=== PATIENT | female | born 1975 | race Caucasian/White ===

== ENCOUNTER 2021-02-16 16:28 | Inpatient (IN) | payer MEDICAID, SELFPAY ==
[2021-02-16] VITALS (58 sets, daily range): BP systolic 90–165; BP diastolic 54–102; PULSE 34–94; RESP 10–20; TEMP 35.6–37.1; O2SAT 73–100
--- NOTE | 2021-02-16 16:34 | W.ED.GENAD ---
Discharge Plan Disposition Patient Disposition: [facility] INPATIENT Condition: Fair Discharge Details Chief Complaint: GenMedical Clinical Impression: Weakness, Light-headed, Anemia, Orthostatic hypotension, YOGESH (acute kidney injury) Admit Date/Time: 02/16/21 20:45 Admit Provider: Danilo Sood Attending Provider: Danilo Sood Primary Care Provider: Unknown,Unknown ED Provider: Lexi Otto Discharge Data Discharge Date/Time-TO BE ENTERED AT DEPARTURE: 02/16/21 20:48 Medical Decision Making Patient is a pleasant 45-year-old female presenting today with chief complaint of feeling generally unwell. Past medical history pertinent for cerebral palsy. Patient reports she just moved to the area, typically receives her care at [facility]. Reports that beginning yesterday she was having some lightheadedness. States that this is improved with lying flat. She denies any chest pain or shortness of breath. States that yesterday she did have some nausea but this is relieved with Zofran. Is denying nausea currently. Denies any abdominal pain. States that she did also have several loose stools but that these of been resolved for the past several hours. Denies any black or bloody stools. She is concerned she has dehydration. She reports her frame table operator helper at [facility] is following this for her. States that she has been symptom every month few days prior to her menses. She reports approximately 3 days. On exam, patient is a chronic appearing female. VS stable. She appears generally weak. No new focal deficit. Cardiac exam is normal on auscultation. Lungs clear. No lower extremity edema. No calf pain. EKG was reviewed by Dr. Garcia. Patient does have ST elevation in leads I and aVL. Otherwise no significant abnormalities. Patient's history is lacking any chest pain or shortness of breath. Hold off on aggressive treatment for STEMI until further work-up has been completed. Is not had any previous ECGs for comparison. I have tried to find the patient in the [facility] systemic but have been unsuccessful. Labs reviewed. Patient is anemic with Hgb of 8.2. Creatinine elevated at 1.6. Troponin WNL. TSH WNL. Urine contaminated, will repeat. Name spelled wrong, FlockS. With this, was able to obtain notes from [facility]. She has had similar presentation to their ED historically. Her previous Hgb has been in the 8-9 range since 2018. Creatinine typically around 1. Reevaluated the patient to discuss her anemia. Patient was difficult to arouse. More so than what I would consider normal. She reports she has been having difficulty sleeping. She denies any EtOH or illicit drug use. States she has been taking her baclofen but states that she has been using this as prescribed. Pupils dilated. Past medical history significant per their records, for cerebral palsy with spasticity, obesity, diastolic congestive heart failure, hypertension, multiple spinal fusions, anxiety, YOGESH. On note dated 12/30/2020 from the [facility] emergency department, they did note the patient was nodding off to sleep in triage with dilated pupils. Called into room by nursing staff. Again, the patient was hard to arouse. At this time, the patient did bradycardia into the 40s. She did not drop her oxygenation level. No painful stimuli, the patient did arise and was verbal at her baseline. Patient was repositioned. She is now reporting that she did take not only her baclofen but also her tizanidine. Her exam is most concerning for overmedication. Patient is prescribed baclofen, Flexeril, Ativan and methocarbamol. Concerned that patient is from her , lives alone.b She is unable to ambulate without sigfnicant assistance. She reports that she typically has difficulty and often uses a wheelchair. Consulted with Dr. Sood who agrees to admission for weakness, YOGESH, anemia. He asked that I place delacruz orders. HPI General Mode of arrival: EMS. Date/Time Provider Initiated Documentation: 02/16/21 16:29. Limitations to Documentation: no limitations. Information obtained by: patient, EMS and RN notes reviewed. History of Present Illness 45 year old F presents to the emergency department with the chief complaint of lightheadedness, described as moderate and similar to prior episodes (reports she has similar episodes prior to each menses), Quality is described as constant, and is localized to the head. Patient reports no radiation. Patient started experiencing this day(s) (1) and it has been constant. Immobilization improves symptom(s), Movement worsens symptoms . Patient notes no other symptoms., loss of appetite, nausea/vomiting (nausea, no vomiting) and weakness (generalized. Chronic left sided weakness); denies chest pain, cough, fever/chills, headaches, rash, shortness of breath and syncope. Patient did receive the following treatments prior to arrival, none Related Data Home Medications Medication Instructions Recorded Confirmed baclofen 40 mg PO TID 02/16/21 02/16/21 citalopram 20 mg PO DAILY 02/16/21 02/16/21 cyclobenzaprine [Flexeril] 5 mg PO QID PRN 02/16/21 02/16/21 lisinopril 10 mg PO DAILY 02/16/21 02/16/21 lorazepam [Ativan] 1 mg PO PRN 02/16/21 methocarbamol [Robaxin] 750 mg PO QID PRN 02/16/21 02/16/21 ondansetron HCl [Zofran] 4 mg PO PRN 02/16/21 Allergies Allergy/AdvReac Type Severity Reaction Status Date / Time amoxicillin Allergy Unverified 02/16/21 16:38 morphine Allergy Unverified 02/16/21 16:39 bees Allergy Uncoded 02/16/21 16:39 pine nuts Allergy Uncoded 02/16/21 16:40 Review of Systems Constitutional Constitutional: Reports as per HPI, Denies chills, Reports fatigue, Denies fever(s), Denies frequent falls, Denies headache(s), Reports lethargy, Reports malaise, Reports poor appetite and Reports weakness (generalized) Eyes Eyes: Denies change in vision ENT Ears, Nose, Mouth, and Throat: Denies vertigo, Reports dizziness (lightheadedness) and Denies headache(s) Cardiovascular Cardiovascular: Reports as per HPI, Denies chest pain, Denies chest pain at rest, Denies chest pain with activity, Denies syncope, Denies edema, Reports lightheadedness, Denies radiating jaw, neck or arm pain, Denies dyspnea and Denies dyspnea on exertion Respiratory Respiratory: Reports as per HPI, Denies chest congestion, Denies cough, Denies pain on inspiration, Denies pain with cough, Denies dyspnea, Denies dyspnea on exertion and Denies wheezing Gastrointestinal Gastrointestinal: Reports as per HPI, Denies abdominal pain, Denies diarrhea, Reports nausea and Denies vomiting Genitourinary Genitourinary: Reports system reviewed and no additional complaints, except as documented (denies increased frequency, urgency, dysurea) Musculoskeletal Musculoskeletal: Reports as per HPI, Reports abnormal gait (difficulty with ambulation at baseline) and Denies back pain Integumentary/Breasts Skin/Breast: Reports as per HPI and Denies rash Neurologic Neurologic: Reports as per HPI, Reports abnormal gait (difficulty with ambulation at baseline), Denies vertigo, Reports dizziness (lightheadedness), Denies syncope, Denies frequent falls, Denies headache(s), Denies localized weakness and Reports weakness (generalized) Endocrine Endocrine: Reports fatigue Allergic/Immunologic Allergic/Immunologic: Denies wheezing [facility] Social History Smoking/Tobacco Use Status: Never Smoking risk assessment performed?: Yes Alcohol Intake: never Substance use type: does not use Exam Const General: cooperative, not healthy appearing, comfortable, no acute distress, well developed and ill appearing chronically Nutritional Appearance: well nourished and overweight Orientation: alert, awake and oriented x3 HENMT Head: normal to inspection Ears: hearing grossly normal bilaterally Mouth: mucous membranes dry (appears dry) Chest Chest: normal inspection of the chest, normal palpation of entire chest wall and no crepitus Resp Effort & Inspection: normal respiratory effort, able to speak in complete sentences and no respiratory distress Auscultation: clear to auscultation bilaterally, no rales, no rhonchi and no wheezes Cardio Rate: regular rate Rhythm: regular rhythm Heart Sounds: S1 normal and S2 normal GI Inspection: normal to inspection, no edema and non-distended Palpation: soft, no hepatosplenomegaly, not firm, no guarding, not rigid and nontender Auscultation: normal bowel sounds Back/Spine/Pelvis Back: no CVA tenderness Thoracic/Lumbar Spine: thoracic and lumbar spine normal to inspection Skin General skin exam: no rashes or lesions noted Trauma: no lacerations or abrasions Neuro General: patient alert, patient awake and patient oriented x3 Cognition: normal cognition Speech: speech normal Gait: gait abnormal (needs assistance at baseline) Extrem General: normal to inspection, capillary refill normal, no pedal edema and no calf tenderness Psych Appearance: grossly normal and well kempt Mental Status: mental status grossly normal Speech and Movement: speech and movement normal
--- NOTE | 2021-02-16 16:45 | RT.EKG_ITS ---
APPROVED REPORT Exam: Resting ECG Reason for Exam: weakness, dizzy Patient Location: E HR:76 bpm ECG Measurements Heart Rate 76 AXIS TX 187 P 30 QRSd 86 QRS -32 QT 391 T -1 QTc 439 Conclusion Sinus rhythm...normal P axis, V-rate 60- 99 Left axis deviation...QRS axis (-30,-90) Probable anterolateral infarct, old...Q>35mS, abnrm ST-T, V2-V6,I,aVL
[2021-02-16 17:18] LABS: Abs Immature Grans 0.03 10^3/uL (0.0-0.06); Absolute Basophil Count 0.03 10^3/uL (0.0-0.2); Absolute Eosinophil Count 0.06 10^3/uL (0.0-0.7); Absolute Lymphocyte Count 1.48 10^3/uL (1.2-3.4); Absolute Monocyte Count 0.63 10^3/uL (0.1-0.8); Absolute Neutrophil Count 4.97 10^3/uL (1.2-6.7); Basophils % 0.4; Eosinophils % 0.8; HCT 28.5 % (36.0-46.0); HGB 8.2 g/dL (11.2-15.7); Immature Grans % 0.4; Lymphocytes % 20.6; MCHC 28.8 % (32.0-36.0); MCV 79.8 fL (80-95); MPV 11.8 fL (8.0-11.0); Monocytes % 8.8; Nucleated RBC 0 %; Platelet Count 285 10^3/uL (130-400); RBC 3.57 10^6/uL (3.93-5.22); RDW 16.8 % (11.7-14.6); RDW-SD 47.9 fL
[2021-02-16] MEDS: Normal Saline 1,000 ML 1000 ML IV (17:25)
[2021-02-16 17:33] LABS: ALT 17 U/L (14-59); AST 13 U/L (15-37); Albumin 3.6 g/dL (3.4-5.0); Alkaline Phosphatase 76 U/L (46-116); Anion Gap 9.6 mmol/L (3-11); BUN 20 mg/dL (7-18); Bilirubin, Total 0.2 mg/dL (0.2-1.0); CO2 24.4 mmol/L (21.0-32.0); CREATININE 1.6 mg/dL (0.55-1.02); Calcium 8.8 mg/dL (8.5-10.1); Chloride 107 mmol/L (98-107); Estimated GFR 34.86 (mL/min/1.73m2); Glucose 150 mg/dL (74-106); Potassium 4.6 mmol/L (3.5-5.1); Sodium 141 mmol/L (136-145); Total Protein 7.8 g/dL (6.4-8.2)
[2021-02-16] MEDS: Normal Saline Flush 10 ML SYR IVP (17:33)
[2021-02-16 17:44] LABS: Magnesium 1.9 mg/dL (1.8-2.4); TSH (W/Ref FT4) 1.43 uIU/mL (0.36-3.74); Troponin I < 0.05 ng/mL (<0.06)
[2021-02-16 18:04] LABS: Bilirubin Negative (Negative); Blood Negative (Negative); Clarity Sl Cloudy (Clear); Glucose Negative (Negative); Ketones Negative (Negative); Leukocyte Esterase Negative (Negative); Nitrite Negative (Negative); Specific Gravity 1.025 (1.005-1.025); Urobilinogen 0.2 EU/dL (Up TO 0.2)
[2021-02-16 18:14] LABS: Epithelial Cells Many HPF (Negative)
[2021-02-16 18:15] LABS: Bacteria Many HPF (Negative); C & S Indicated? No/Sq. Contamination
[2021-02-16 18:29] LABS: *AMPHETAMINES SCREEN URINE Negative (Negative); *BARBITURATES SCREEN URINE Negative (Negative); *BENZODIAZEPINES SCREEN URINE Negative (Negative); Cannabinoids THC Negative (Negative); Cocaine Screen,Urine Negative (Negative); METHADONE URINE SCREEN Negative (Negative); OPIATES URINE SCREEN Negative (Negative)
[2021-02-16 18:31] LABS: Tricyclic Antidepressants Positive (Negative)
--- NOTE | 2021-02-16 18:32 | DI.RAD_ITS ---
Exam(s) XR CHEST 2V PA LATERAL EXAM: XR CHEST 2V PA LATERAL CLINICAL HISTORY: dizziness. TECHNIQUE: 2D digital imaging was performed. COMPARISON: No exams were available for comparison FINDINGS: There are multiple screws in the posterior elements of multiple thoracic vertebrae. There is also fu jennifer hardware in the lumbar spine which is not completely included in the field of view. Scoliosis Mild cardiomegaly. Mediastinum unremarkable. Mildly elevated right hemidiaphragm. No infiltrates evident in the left lung. Increased markings ar e noted in the right lower lobe behind the heart shadow, possibly significant. There appears to be s urgical absence of the lateral aspect of the left 6 rib. IMPRESSION: Slightly increased markings in right lower lobe.Remainder of the lung villa appear clear with the ex ception of some pleural blunting on the left side where there has been prior surgery including resect ion of the lateral aspect of the left 6 rib. Scoliosis. Spinal hardware. DATA REPOSITORY: RADIATION DOSE DELIVERED:
[2021-02-16 18:50] LABS: Bilirubin Negative (Negative); Blood Negative (Negative); Clarity Clear (Clear); Glucose Negative (Negative); Ketones Negative (Negative); Leukocyte Esterase Negative (Negative); Nitrite Negative (Negative); Urobilinogen 0.2 EU/dL (Up TO 0.2)
--- NOTE | 2021-02-16 18:51 | DI.VRAD_ITS ---
PROCEDURE INFORMATION: Exam: XR Chest Exam date and time: 02/16/2021 4:53 PM Age: 45 years old Clinical indication: Other: Dizziness TECHNIQUE: Imaging protocol: XR of the chest. Views: 2 views. COMPARISON: No relevant prior studies available. FINDINGS: Tubes, catheters and devices: There are plate and screws at multiple lower thoracic and upper lumbar levels, only partially imaged. There are also multiple fusion devices involving the posterior elements of multiple thoracic vertebra. There appears to be moderate scoliosis centered near the thoracolumbar junction, only partially imaged. Lungs: There is no pulmonary vascular congestion. No focal pulmonary parenchymal airspace opacities are identified. Pleural spaces: There is blunting of the left lateral costophrenic angle on the AP view without posterior layering effusion identified on the lateral view, which may represent chronic pleural thickening. Heart/Mediastinum: Heart is is indeterminate. Bones/joints: There appears to be absence of the lateral aspect of the left 6th rib with widening of the interspace between the left 6th and 7th rib, which may be postoperative. IMPRESSION: 1. No active cardiopulmonary disease identified. 2. Postoperative changes of the lower lateral left chest and involving the thoracolumbar spine as described above. 3. Moderate levoscoliosis. Dictated and Authenticated by: Silviano Grimaldo MD. Ordering:JOSLYN Elliott MD
[2021-02-16] MEDS: Lactated Ringers 1,000 ML 250 ML IV (19:30)
--- NOTE | 2021-02-16 19:30 | RT.EKG_ITS ---
APPROVED REPORT Exam: Resting ECG Reason for Exam: bradycardia Patient Location: E HR:64 bpm ECG Measurements Heart Rate 64 AXIS TX 229 P 54 QRSd 94 QRS -36 QT 411 T -12 QTc 426 Conclusion Sinus rhythm...normal P axis, V-rate 60- 99 Prolonged TX interval...TX >210, V-rate 50- 90 Left axis deviation...QRS axis (-30,-90) Consider anterior infarct...Q >30mS in V2-V5
[2021-02-16 19:36] LABS: ETHANOL BLOOD < 3.0 mg/dL (<3)
--- NOTE | 2021-02-16 20:53 | HPE_ITS ---
Date of service: 02/16/21 Time of Service: 20:53 Assessment and Plan Assessment and plan (1) Light-headed: Status: Acute Assessment and plan: secondary to dehydration; diarrhea. continue iv fluids overnight but will need reassement for continued fluids as the patient has hx of HFPEF (2) Chronic anemia: Status: Chronic Assessment and plan: does not appear to be d/t acute GI bleed. will monit or CBC and check iron studies, B12 and folate in the morning. (3) YOGESH (acute kidney injury): Status: Acute Assessment and plan: iv fluid hydration and repeat BMP in the a.m. (4) Abrasion of skin of left thigh: Status: Acute Assessment and plan: apply Mepilex for tonight and ask wound care nurse for consult in the a.m. History of Present Illness History of Present Illness Chief Complaint: dizziness and diarrhea Narrative: 45 yr old female w/ cerebral palsy w/ spasticity, obesity, HFPEF, HTN, multiple spinal fusions, anxiety and CKD who presented to the ED w/ complaints of lightheadedness and diarrhea. She states that she had multiple watery stools w/out melena or hematochezia over the past 18 hrs prior to coming to the ER. She says that she is living in [facility] in [place], [place] although she is from [facility] and her still lives there. She had been getting her care through [facility] where she was admitted overnight 12/25 to 12/26/2020 for similar symptoms related to dehydration d/t nausea and vomiting. She was treated w/ iv fluids, antiemetics and CT of her abdomen and pelvis was done and showed no acute process. Per her discharge note, it was indicated that she has been hospitalized multiple times for similar symptoms and polypharmacy has been suspected. She does use multiple muscle relaxants for her spasticity. During that admission she was noted to have periods of extreme somnolence and difficulty arousing. She denies any abdominal pains, dyspnea, chest pain or pressure. She has not had any further diarrhea since about 11 am. While in the ER she was noted to have periods of sinus bradycardia in the 40's associated w/ somnolence and borderline low saturations.Patient was found to be anemic w/ Hb 8.2 gm which is similar to her prior levels at [facility] which was in the 8 to 9 gm range. EKG was done which showed some repolarization changes, however, she has had no CP and her troponin I was normal. She is admitted on observation status for iv fluids. Review of Systems All systems reviewed & are unremarkable except as noted in HPI and below PFS Medical History (Updated 02/17/21 @ 01:28 by Danilo Sood) Anxiety disorder Cerebral palsy Chronic anemia Heart failure with preserved ejection fraction Osteoarthritis of right hip joint due to dysplasia Polycystic ovaries Rhabdomyolysis Scoliosis (and kyphoscoliosis), idiopathic Toxic metabolic encephalopathy (~11/26/20) Surgical History (Updated 02/17/21 @ 01:19 by Danilo Sood) S/P spinal fusion Status post Girdlestone procedure Social History Smoking/Tobacco Use Status: Never Smoking risk assessment performed?: Yes Alcohol Intake: never Substance use type: does not use Meds Allergies and Home Medications Allergies Allergy/AdvReac Type Severity Reaction Status Date / Time amoxicillin Allergy Unverified 02/16/21 16:38 morphine Allergy Unverified 02/16/21 16:39 bees Allergy Uncoded 02/16/21 16:39 pine nuts Allergy Uncoded 02/16/21 16:40 Home Medications Medication Instructions Recorded Confirmed Type baclofen 40 mg PO TID 02/16/21 02/16/21 History citalopram 20 mg PO DAILY 02/16/21 02/16/21 History cyclobenzaprine [Flexeril] 5 mg PO QID PRN 02/16/21 02/16/21 History lisinopril 10 mg PO DAILY 02/16/21 02/16/21 History lorazepam [Ativan] 1 mg PO PRN 02/16/21 History methocarbamol [Robaxin] 750 mg PO QID PRN 02/16/21 02/16/21 History ondansetron HCl [Zofran] 4 mg PO PRN 02/16/21 History Exam Narrative Exam Narrative: Middle age white female lying in bed; she was asleep when I examined her and was a little confused when she awoke but eventually was clear enough to answer my questions. She is a bit vague on her medical details She denies any pain or discomfort at present and no nausea HEENT: dry mucous membranes; poor dentition neck: flat neck veins, normal carotid pulses, nontender and normal ROM Lungs: clear Heart: RRR, no murmur, rub or gallops Abdomen: soft, but distended, nontender to palpation; no guarding or rebound tenderness; hyperactive bowel sounds Extremities: L. leg w/ normal ROM and strength; R. leg w/ foreshortening d/t prior Girdlestone procedure; some spasticity of the leg; unable to flex at hip but some flexion at knee and able to dorsiflex and plantar flex at ankle Skin: tinea under breasts and groin; small abrasion over left proximal dorsal thigh just below buttocks; no open sores but left proximal thigh is of concern for skin breakdown Results Labs Result diagrams: 02/16/21 17:15 02/16/21 17:15 Labs: Laboratory Results - last 24 hr 02/16/21 02/16/21 02/16/21 17:15 17:15 17:15 WBC 7.20 RBC 3.57 L Hgb 8.2 L Hct 28.5 L MCV 79.8 L MCH 23.0 L MCHC 28.8 L RDW 16.8 H Plt Count 285 MPV 11.8 H Immature Gran % 0.4 Neutrophils % 69.0 Lymphocytes % 20.6 Monocytes % 8.8 Eosinophils % 0.8 Basophils % 0.4 Nucleated RBC % 0 Absolute Neutrophils 4.97 Absolute Lymphocytes 1.48 Absolute Monocytes 0.63 Absolute Eosinophils 0.06 Absolute Basophils 0.03 Sodium 141 Potassium 4.6 Chloride 107 Carbon Dioxide 24.4 Anion Gap 9.6 BUN 20 H Creatinine 1.6 H Estimated GFR/1.73 m2 34.86 Glucose 150 H Calcium 8.8 Magnesium 1.9 Total Bilirubin 0.2 AST 13 L ALT 17 Alkaline Phosphatase 76 Troponin I < 0.05 Total Protein 7.8 Albumin 3.6 TSH 1.43 Urine Color Urine Clarity Urine pH Ur Specific [place] Urine Protein Urine Ketones Urine Blood Urine Nitrite Urine Bilirubin Urine Urobilinogen Ur Leukocyte Esterase Urine RBC Urine WBC Ur Epithelial Cells Urine Crystals Urine Bacteria Urine Mucus Ur Culture Indicated? Urine Glucose Urine Opiates Screen Urine Methadone Screen Ur Barbiturates Screen Ur Tricyclics Screen Ur Amphetamines Screen U Benzodiazepines Scrn Urine Cocaine Screen Ur THC Screen Ethyl Alcohol 02/16/21 02/16/21 02/16/21 17:15 17:47 17:55 WBC RBC Hgb Hct MCV MCH MCHC RDW Plt Count MPV Immature Gran % Neutrophils % Lymphocytes % Monocytes % Eosinophils % Basophils % Nucleated RBC % Absolute Neutrophils Absolute Lymphocytes Absolute Monocytes Absolute Eosinophils Absolute Basophils Sodium Potassium Chloride Carbon Dioxide Anion Gap BUN Creatinine Estimated GFR/1.73 m2 Glucose Calcium Magnesium Total Bilirubin AST ALT Alkaline Phosphatase Troponin I Total Protein Albumin TSH Urine Color Yellow Urine Clarity Sl Cloudy Urine pH 6.0 Ur Specific [place] 1.025 Urine Protein 30 H Urine Ketones Negative Urine Blood Negative Urine Nitrite Negative Urine Bilirubin Negative Urine Urobilinogen 0.2 Ur Leukocyte Esterase Negative Urine RBC Urine WBC Ur Epithelial Cells Many Urine Crystals Not Applicable Urine Bacteria Many Urine Mucus Not Applicable Ur Culture Indicated? No/Sq. Contamination Urine Glucose Negative Urine Opiates Screen Urine Methadone Screen Ur Barbiturates Screen Ur Tricyclics Screen Ur Amphetamines Screen U Benzodiazepines Scrn Urine Cocaine Screen Ur THC Screen Ethyl Alcohol < 3.0 Cancelled 02/16/21 02/16/21 17:55 18:40 WBC RBC Hgb Hct MCV MCH MCHC RDW Plt Count MPV Immature Gran % Neutrophils % Lymphocytes % Monocytes % Eosinophils % Basophils % Nucleated RBC % Absolute Neutrophils Absolute Lymphocytes Absolute Monocytes Absolute Eosinophils Absolute Basophils Sodium Potassium Chloride Carbon Dioxide Anion Gap BUN Creatinine Estimated GFR/1.73 m2 Glucose Calcium Magnesium Total Bilirubin AST ALT Alkaline Phosphatase Troponin I Total Protein Albumin TSH Urine Color Yellow Urine Clarity Clear Urine pH 6.0 Ur Specific [place] 1.010 Urine Protein Negative Urine Ketones Negative Urine Blood Negative Urine Nitrite Negative Urine Bilirubin Negative Urine Urobilinogen 0.2 Ur Leukocyte Esterase Negative Urine RBC Urine WBC Ur Epithelial Cells Urine Crystals Urine Bacteria Urine Mucus Ur Culture Indicated? Urine Glucose Negative Urine Opiates Screen Negative Urine Methadone Screen Negative Ur Barbiturates Screen Negative Ur Tricyclics Screen Positive A Ur Amphetamines Screen Negative U Benzodiazepines Scrn Negative Urine Cocaine Screen Negative Ur THC Screen Negative Ethyl Alcohol Last Vital Signs Temp 37.1 C 02/16/21 16:31 Pulse 65 02/16/21 20:31 Resp 13 02/16/21 20:40 BP 139/94 H 02/16/21 20:31 Pulse Ox 100 02/16/21 20:10
[2021-02-16 21:03] LABS: Source Nasal/Nares
[2021-02-16 22:18] LABS: COVID-19 PCR Negative (Negative)
[2021-02-16] MEDS: Enoxaparin 30 MG/0.3 ML SYR SC (22:47)
[2021-02-16] MEDS: Pantoprazole 40 MG TABCR PO (22:48)
[2021-02-16] MEDS: Lactated Ringers 1,000 ML 85 ML IV (23:30)
[2021-02-17] VITALS (46 sets, daily range): BP systolic 106–230; BP diastolic 58–120; PULSE 44–154; RESP 8–35; TEMP 36.3–37.8; O2SAT 86–100
--- NOTE | 2021-02-17 | DI.US_ITS ---
Exam(s) US EXTREMITY VENOUS BI EXAM: US EXTREMITY VENOUS BI CLINICAL HISTORY: concern for DVT (asymmetric edema) TECHNIQUE: Grayscale, color, and doppler imaging of the deep venous system of both lower extremities was performed. COMPARISON: US US ECHOCARDIOGRAM from 02/17/2021 FINDINGS: There is no evidence of intraluminal thrombus and there is normal compression and augmentation demons trated within the common femoral veins, femoral veins, and popliteal veins of both lower extremities. In the calves the interrogated veins also exhibit normal compression/ augmentation properties. The greater saphenous veins also appear patent as do the saphenofemoral junctions bilaterally.. IMPRESSION: 1. No ultrasound evidence of DVT in either lower extremity. DATA REPOSITORY:
--- NOTE | 2021-02-17 | DI.US_ITS ---
APPROVED REPORT EXAM: Comprehensive 2D, Doppler, and color-flow Echocardiogram Patient Location: In-Patient Room/Bed: icu 220 Entry Tech: Gisele Bethea RDCS (AE) Indications: HTN, HFPEF. CEREBRAL PALSY Other Information Study Quality: Fair Conclusion Left Ventricle : The left ventricle is normal size. The left ventricular ejection fraction is within the normal range. There is normal left ventricular wall thickness. There is normal LV segmental wall motion. The left ventricular diastolic function is abnormal. LVEF is 64%. Right Ventricle : Right ventricle is grossly normal in size. Right ventricular systolic function is g rossly normal. Atria : The left atrium size is normal. The right atrium size is normal. Valves: There are no hemodynamically significant valvular lesions. Great Vessels : The aortic root is normal in size. The ascending aorta is mildly dilated. Due to jeffery ent body habitus sub costal imaging was not able to be obtained. Wall motion Left Ventricle The left ventricle is normal size. The left ventricular ejection fraction is within the normal range. There is normal left ventricular wall thickness. There is normal LV segmental wall motion. The left ventricular diastolic function is abnormal. LVEF is 64%. Right Ventricle Right ventricle is grossly normal in size. Right ventricular systolic function is grossly normal. Atria The left atrium size is normal. The right atrium size is normal. Aortic Valve The aortic valve is normal in structure. Aortic valve is trileaflet. There is no aortic valvular sten osis. No aortic regurgitation is present. Mitral Valve The mitral valve is normal in structure. No evidence of mitral valve stenosis. Trace to mild mitral r egurgitation. Tricuspid Valve The tricuspid valve is normal in structure. There is no tricuspid valve stenosis. Trace tricuspid reg urgitation. Unable to assess PA pressure. Pulmonic Valve The pulmonary valve is normal in structure. There is no pulmonic valvular stenosis. There is no pulmo vanesa valvular regurgitation. Great Vessels The aortic root is normal in size. The ascending aorta is mildly dilated. Due to patient body habitus sub costal imaging was not able to be obtained. 2D Dimensions IVSD d PLAX 1.00 cm F: 0.6-1.0 LV Vol A2C d MOD 117.0 mL LVPW d PLAX 1.03 cm F: 0.6 - 1.0 LV Vol A4C d MOD 88.7 mL LVID d PLAX 4.33 cm F: 3.8 - 5.2 LA vol/ BSA A2C s A-L 26.0 mL/m2 LVDs 2.85 cm F: 2.2 - 3.5 LA vol/ BSA A4C s A-L 23.1 mL/m2 Ao Root d 2.70 cm F: 2.7 - 3.3 LA Vol/ BSA Biplane s A-L 24.9 mL/m2 RA Area A4C 10.82 cm2 LA Area A4C s MOD 16.44 cm2 RA Vol/ BSA A4C s A-L 12.9 mL/m2 LA Area A2C s MOD 17.15 cm2 Ao Asc Diam d 3.22 cm F: 2.3 - 3.1 LV EF A4C MOD 62.8 % LV EF Teichholz 63.3 % LV EF A2C MOD 65.4 % LVEF (Urena's) 63.96 % F: 54 - 74 LV EF Biplane MOD 64.0 % LV Volume 80.47 mL F: 46 - 106 SV 65.46 mL LV Volume Index 46.24 mL/m2 F: 29 - 61 SV Index 37.48 mL/m2 LV Vol Biplane MOD 102.3 mL FS 34.05 % M-Mode TAPSE 2.45 cm (M/F) >1.7 LV Diastology MV E' medial 0.078 (>0.07 m/s) MV E Vmax 1.69 (0.4-1.3 m/s) LV E/e MED 21.65 (<14) MV E' lateral 0.090 (>0.1 m/s) LV E/e LAT 18.70 (<14) MV E/E' medial 21.67 MV E/E' lateral 18.74 Aortic Valve LVOT Area 2.75 cm2 AoV Area Vmax 2.18 cm2 LVOT Vmax 1.33 m/s AoV Area/ BSA (Vmax) 1.25 cm2/m2 LVOT Mean Riley. 0.86 m/s PENNIE Mean Riley. 2.01 cm2 LVOT Peak Grad 7.1 mmHg PENNIE Mean Riley. Index 1.15 cm2/m2 LVOT Mean Grad 3.5 mmHg LVOT VTI 0.229 m LVOT Diam s 1.85 cm AoV Vmax 1.68 m/s Velocity Ratio 0.79 AoV Mean Riley. 1.17 m/s AoV Peak Grad 11.3 mmHg LVOT SV 62.85 mL AoV Mean Grad 6.0 mmHg AoV VTI 0.262 m AoV Area VTI 2.40 cm2 AoV Area/ BSA (VTI) 1.37 cm/m2 Mitral Valve MV DT 144 (160-240 msec) MV PHT 42 msec MV Area PHT 5.27 cm2 MV VTI 0.276 m MV Area VTI 2.28 (4.0-6.0 cm2) Pulmonary Valve PV Vmax 1.06 (0.5-1.5 m/s) RVOT Peak Gr. 2.32 mmHg PV Peak Grad 4.5 mmHg RVOT Mean Gr. 1.05 mmHg PV Mean Grad 2.2 mmHg RVOT VTI 0.091 m PV VTI 0.166 m RVOT Vmax 0.76 m/s
[2021-02-17] MEDS: Mylanta Suspension 30 ML CUP PO (02:51)
[2021-02-17] MEDS: Famotidine 20 MG TAB 40 MG PO (03:57)
[2021-02-17] MEDS: Acetaminophen 325 MG TAB PO ×2 (04:31→15:27)
[2021-02-17] MEDS: Labetalol 100 MG/20 ML VIAL 20 MG IVP (06:37)
[2021-02-17 07:03] LABS: Reticulocyte 1.1 % (0.5-2.4)
[2021-02-17 07:04] LABS: Abs Immature Grans 0.04 10^3/uL (0.0-0.06); Absolute Basophil Count 0.03 10^3/uL (0.0-0.2); Absolute Eosinophil Count 0.05 10^3/uL (0.0-0.7); Absolute Lymphocyte Count 1.69 10^3/uL (1.2-3.4); Absolute Monocyte Count 0.47 10^3/uL (0.1-0.8); Absolute Neutrophil Count 3.26 10^3/uL (1.2-6.7); Basophils % 0.5; Eosinophils % 0.9; HCT 31.4 % (36.0-46.0); HGB 9.1 g/dL (11.2-15.7); Immature Grans % 0.7; Lymphocytes % 30.5; MCH 22.6 pg (27.0-33.0); MCV 77.9 fL (80-95); MPV 12.4 fL (8.0-11.0); Monocytes % 8.5; Neutrophils % 58.9; Nucleated RBC 0 %; Platelet Count 302 10^3/uL (130-400); RBC 4.03 10^6/uL (3.93-5.22); RDW 16.9 % (11.7-14.6); RDW-SD 47.4 fL; WBC 5.54 10^3/uL (4.4-10.8)
[2021-02-17] MEDS: Baclofen 10 MG TAB 40 MG PO ×3 (07:08→20:02)
[2021-02-17 07:42] LABS: Anion Gap 11.4 mmol/L (3-11); BUN 11 mg/dL (7-18); CO2 23.6 mmol/L (21.0-32.0); CREATININE 1.3 mg/dL (0.55-1.02); Calcium 9.2 mg/dL (8.5-10.1); Chloride 108 mmol/L (98-107); Estimated GFR 44.29 (mL/min/1.73m2); Ferritin 9 ng/mL (8-252); Glucose 77 mg/dL (74-106); Potassium 4.5 mmol/L (3.5-5.1); Sodium 143 mmol/L (136-145)
[2021-02-17 07:46] LABS: Iron 18 ug/dL (50-170); Total Iron Binding Capacity 440 ug/dL (250-450); Transferrin Sat 4 % (15-50)
[2021-02-17 07:55] LABS: Folate 7.3 ng/mL (8.6-20.0); Vitamin B12 357 pg/mL (193-986)
--- NOTE | 2021-02-17 08:00 | DI.CT_ITS ---
Exam(s) CT ABDOMEN PELVIS WO EXAM: CT ABDOMEN PELVIS WO CLINICAL HISTORY: abdominal distension and diarrhea. TECHNIQUE: Imaging Protocol: Axial computed tomography images with coronal and sagittal reformatted images were created and reviewed CONTRAST MATERIAL: Intravenous: none Oral: Yes COMPARISON: No exams were available for comparison FINDINGS: Images are degraded by motion artifact VISUALIZED LUNG BASES: Mild benign-appearing increased markings in the lung bases. No pleural effusi ons.. Scoliosis and multilevel hardware in the spinal column noted. ABDOMEN: There is no ascites. LIVER: Multiple hypodensities are noted in both hepatic lobes, larger and more prominent in the left hepatic lobe. These are difficult to assess without IV contrast but may represent benign cysts. GALLBLADDER/BILIARY: Gallbladder surgically absent. CBD is not obviously dilated. PANCREAS: No evidence of obvious pancreatic mass nor obvious dilatation of the pancreatic duct. SPLEEN: Spleen is not enlarged. No obvious intrasplenic lesions. ADRENALS: There are no significant adrenal masses. KIDNEYS:There are multiple cysts in both kidneys noted. May be an element of polycystic kidney disea se here. No renal calculi. No obvious hydronephrosis. Doubtful for solid masses.. ABDOMINAL AORTA: Abdominal aorta is not enlarged. LYMPH NODES: There is no retroperitoneal nor paraaortic adenopathy. ABDOMINAL WALL: No evidence of significant anterior abdominal wall hernia. GI: There is no evidence of bowel obstruction, free air, nor abscess. PELVIS: LYMPH NODES: There is no intrapelvic nor inguinal adenopathy. GI: No evidence of obvious appendicitisno evidence of sigmoid diverticulitis. URINARY BLADDER: Urinary bladder is somewhat distended. No radiopaque calculi nor obvious masses the rein. REPRODUCTIVE: Uterus and adnexal regions are age-appropriate OSSEOUS: Chronic deformities and spinal surgeries and scoliosis. No evidence of obvious decubitus ul cer nor osteomyelitis. Ischial tuberosities appear intact. IMPRESSION: 1. Study somewhat degraded by motion artifact. 2. Multiple hypodensities in both kidneys as well as the liver may imply the presence of polycystic k idney disease. Given the quality of the study and the fact that there was no IV contrast I recommend confirmation of these findings are cystic with ultrasound examination. 3. Gallbladder surgically absent. There is no obvious dilatation of the biliary tree. Chronic bone deformities and spinal surgeries. No evidence of decubitus ulcer in nor evidence of ost eomyelitis. RADIATION DOSE DELIVERED: 829.54mGy.cm Total DLP DATA REPOSITORY: All CT scans at this facility are submitted to the National Radiology Data Registry (NRDR) Dose Index Registry (DIR) with the [employer] (ACR). RADIATION OPTIMIZATION: All CT scans at this facility use at least one of these dose optimization te chniques: automated exposure control; mA and/or kV adjustment per patient size (includes targeted exa ms where dose is matched to clinical indication); or iterative reconstruction.
--- NOTE | 2021-02-17 08:06 | PGE_ITS ---
Date of Service Date of service: 02/17/21 Time of Service: 14:03 Assessment and Plan Assessment and plan (1) Gastroenteritis: Status: Acute Assessment and plan: Patient with diarrhea/n/v. CT abdomen is still not read, but clinically this is presenting as gastroenteritis. Await CT read. COVID-19 negative. Clinically improving. Continue IVF - increase rate. (2) Aspiration pneumonia: Status: Suspected Assessment and plan: New O2 requirement in setting of vomiting. RLL infiltrate on imaging. Due to anaphylaxis to PCN, start levofloxacin and monitor. Check blood cultures, lactate, procalcitonin. (3) Sinus tachycardia: Status: Acute Assessment and plan: Suspect due to dehydration as well as possible infectious process. HOwever, I cannot r/o a PE given the patient's report of LLE intermittently swelling. Obtain US BLE's. If positive, would check CTA chest, but given YOGESH, would rather avoid IV contrast at this time. (4) Dehydration: Status: Acute Assessment and plan: Increase IVF. No systolic/dyastolic dysfunction evident on echo. (5) YOGESH (acute kidney injury): Status: Acute Assessment and plan: Improving with IVF. Continue. Also, hold lilian-i. (6) Light-headed: Status: Acute Assessment and plan: secondary to dehydration in setting of diarrhea, ?PE. Continue IVF. Improving. (7) Chronic anemia: Status: Chronic Assessment and plan: Multifactorial - due to iron, B12, and folic acid deficiency. Replete all of the above and monitor H/H. (8) Abrasion of skin of left thigh: Status: Acute Assessment and plan: Wound care consulted. (9) Hypertension: Status: Chronic Assessment and plan: Started on coreg. prn IV lopressor. Hold lilian-i. Consider addition of HCTZ or norvasc on discharge. (10) Ambulatory dysfunction: Status: Acute Assessment and plan: PT consulted. The patient does really well with a walker and wheelchair. Continue PT while inpatient. Will benefit from home health PT. (11) DVT prophylaxis: Status: Acute Assessment and plan: Enoxaparin (12) Discharge planning issues: Status: Acute Assessment and plan: Full code Continues to require hospitalization Subjective Subjective Interval history since last seen: Ms Nelson states she feels a lot better. Her biggest complaint is spasticity. She did have an episode of vomiting during her CT abdomen/pelvis, but she is no longer nauseated. States her LLE looks puffier than normal today. She is having a cough - started in the ED, she stated. Nursing reports that the patient is requiring 2L of O2. She is not normally on O2. Hypertensive at 6 am - manual BPs are better. In ST, HR 12Os. Patient states this isn't unusual for her when she is not feeling well. HR did improve after Labetalol this am; also helped with BP. Wore CPAP x 1 hr. Refused afterwards. Will trial different settings. 1300 cc out overnight. Wound consult for L post. thigh abrasion. Afebrile. Exam Narrative Exam Narrative: General: Very pleasant middle-aged female who is tremulous/spastic, A&Ox3, O2 at 2L by NC HEENT: EOMI, dry MM Heart: RRR, tachycardic Lungs: Diminished breath sounds B Abdomen: soft, mildly distended, nontender, +BS Extremities: 1+ edema BLE's, LLE>RLE. Objective Last Vital Signs Temp 37.3 C 02/17/21 05:31 Pulse 99 H 02/17/21 07:07 Resp 20 02/17/21 06:00 BP 158/98 H 02/17/21 07:07 Pulse Ox 94 02/17/21 06:26 Laboratory Results - last 24 hr 02/16/21 02/16/21 02/16/21 17:15 17:15 17:15 WBC 7.20 RBC 3.57 L Hgb 8.2 L Hct 28.5 L MCV 79.8 L MCH 23.0 L MCHC 28.8 L RDW 16.8 H Plt Count 285 MPV 11.8 H Reticulocyte % (Auto) Immature Gran % 0.4 Neutrophils % 69.0 Lymphocytes % 20.6 Monocytes % 8.8 Eosinophils % 0.8 Basophils % 0.4 Nucleated RBC % 0 Absolute Neutrophils 4.97 Absolute Lymphocytes 1.48 Absolute Monocytes 0.63 Absolute Eosinophils 0.06 Absolute Basophils 0.03 Sodium 141 Potassium 4.6 Chloride 107 Carbon Dioxide 24.4 Anion Gap 9.6 BUN 20 H Creatinine 1.6 H Estimated GFR/1.73 m2 34.86 Glucose 150 H Calcium 8.8 Magnesium 1.9 Iron TIBC Transferrin % Sat Ferritin Total Bilirubin 0.2 AST 13 L ALT 17 Alkaline Phosphatase 76 Troponin I < 0.05 Total Protein 7.8 Albumin 3.6 TSH 1.43 Urine Color Urine Clarity Urine pH Ur Specific [place] Urine Protein Urine Ketones Urine Blood Urine Nitrite Urine Bilirubin Urine Urobilinogen Ur Leukocyte Esterase Urine RBC Urine WBC Ur Epithelial Cells Urine Crystals Urine Bacteria Urine Mucus Ur Culture Indicated? Urine Glucose Urine Opiates Screen Urine Methadone Screen Ur Barbiturates Screen Ur Tricyclics Screen Ur Amphetamines Screen U Benzodiazepines Scrn Urine Cocaine Screen Ur THC Screen Ethyl Alcohol COVID-19 Source SARS-CoV-2 (PCR) 02/16/21 02/16/21 02/16/21 17:15 17:47 17:55 WBC RBC Hgb Hct MCV MCH MCHC RDW Plt Count MPV Reticulocyte % (Auto) Immature Gran % Neutrophils % Lymphocytes % Monocytes % Eosinophils % Basophils % Nucleated RBC % Absolute Neutrophils Absolute Lymphocytes Absolute Monocytes Absolute Eosinophils Absolute Basophils Sodium Potassium Chloride Carbon Dioxide Anion Gap BUN Creatinine Estimated GFR/1.73 m2 Glucose Calcium Magnesium Iron TIBC Transferrin % Sat Ferritin Total Bilirubin AST ALT Alkaline Phosphatase Troponin I Total Protein Albumin TSH Urine Color Yellow Urine Clarity Sl Cloudy Urine pH 6.0 Ur Specific [place] 1.025 Urine Protein 30 H Urine Ketones Negative Urine Blood Negative Urine Nitrite Negative Urine Bilirubin Negative Urine Urobilinogen 0.2 Ur Leukocyte Esterase Negative Urine RBC Urine WBC Ur Epithelial Cells Many Urine Crystals Not Applicable Urine Bacteria Many Urine Mucus Not Applicable Ur Culture Indicated? No/Sq. Contamination Urine Glucose Negative Urine Opiates Screen Urine Methadone Screen Ur Barbiturates Screen Ur Tricyclics Screen Ur Amphetamines Screen U Benzodiazepines Scrn Urine Cocaine Screen Ur THC Screen Ethyl Alcohol < 3.0 Cancelled COVID-19 Source SARS-CoV-2 (PCR) 02/16/21 02/16/21 02/16/21 17:55 18:40 19:25 WBC RBC Hgb Hct MCV MCH MCHC RDW Plt Count MPV Reticulocyte % (Auto) Immature Gran % Neutrophils % Lymphocytes % Monocytes % Eosinophils % Basophils % Nucleated RBC % Absolute Neutrophils Absolute Lymphocytes Absolute Monocytes Absolute Eosinophils Absolute Basophils Sodium Potassium Chloride Carbon Dioxide Anion Gap BUN Creatinine Estimated GFR/1.73 m2 Glucose Calcium Magnesium Iron TIBC Transferrin % Sat Ferritin Total Bilirubin AST ALT Alkaline Phosphatase Troponin I Total Protein Albumin TSH Urine Color Yellow Urine Clarity Clear Urine pH 6.0 Ur Specific [place] 1.010 Urine Protein Negative Urine Ketones Negative Urine Blood Negative Urine Nitrite Negative Urine Bilirubin Negative Urine Urobilinogen 0.2 Ur Leukocyte Esterase Negative Urine RBC Urine WBC Ur Epithelial Cells Urine Crystals Urine Bacteria Urine Mucus Ur Culture Indicated? Urine Glucose Negative Urine Opiates Screen Negative Urine Methadone Screen Negative Ur Barbiturates Screen Negative Ur Tricyclics Screen Positive A Ur Amphetamines Screen Negative U Benzodiazepines Scrn Negative Urine Cocaine Screen Negative Ur THC Screen Negative Ethyl Alcohol COVID-19 Source Nasal/Nares SARS-CoV-2 (PCR) Negative 02/17/21 02/17/21 02/17/21 06:33 06:33 06:33 WBC 5.54 RBC 4.03 Hgb 9.1 L Hct 31.4 L MCV 77.9 L MCH 22.6 L MCHC 29.0 L RDW 16.9 H Plt Count 302 MPV 12.4 H Reticulocyte % (Auto) Immature Gran % 0.7 Neutrophils % 58.9 Lymphocytes % 30.5 Monocytes % 8.5 Eosinophils % 0.9 Basophils % 0.5 Nucleated RBC % 0 Absolute Neutrophils 3.26 Absolute Lymphocytes 1.69 Absolute Monocytes 0.47 Absolute Eosinophils 0.05 Absolute Basophils 0.03 Sodium 143 Potassium 4.5 Chloride 108 H Carbon Dioxide 23.6 Anion Gap 11.4 H BUN 11 D Creatinine 1.3 H Estimated GFR/1.73 m2 44.29 Glucose 77 D Calcium 9.2 Magnesium Iron 18 L TIBC 440 Transferrin % Sat 4 L Ferritin 9 Total Bilirubin AST ALT Alkaline Phosphatase Troponin I Total Protein Albumin TSH Urine Color Urine Clarity Urine pH Ur Specific [place] Urine Protein Urine Ketones Urine Blood Urine Nitrite Urine Bilirubin Urine Urobilinogen Ur Leukocyte Esterase Urine RBC Urine WBC Ur Epithelial Cells Urine Crystals Urine Bacteria Urine Mucus Ur Culture Indicated? Urine Glucose Urine Opiates Screen Urine Methadone Screen Ur Barbiturates Screen Ur Tricyclics Screen Ur Amphetamines Screen U Benzodiazepines Scrn Urine Cocaine Screen Ur THC Screen Ethyl Alcohol COVID-19 Source SARS-CoV-2 (PCR) 02/17/21 06:33 WBC RBC Hgb Hct MCV MCH MCHC RDW Plt Count MPV Reticulocyte % (Auto) 1.1 Immature Gran % Neutrophils % Lymphocytes % Monocytes % Eosinophils % Basophils % Nucleated RBC % Absolute Neutrophils Absolute Lymphocytes Absolute Monocytes Absolute Eosinophils Absolute Basophils Sodium Potassium Chloride Carbon Dioxide Anion Gap BUN Creatinine Estimated GFR/1.73 m2 Glucose Calcium Magnesium Iron TIBC Transferrin % Sat Ferritin Total Bilirubin AST ALT Alkaline Phosphatase Troponin I Total Protein Albumin TSH Urine Color Urine Clarity Urine pH Ur Specific [place] Urine Protein Urine Ketones Urine Blood Urine Nitrite Urine Bilirubin Urine Urobilinogen Ur Leukocyte Esterase Urine RBC Urine WBC Ur Epithelial Cells Urine Crystals Urine Bacteria Urine Mucus Ur Culture Indicated? Urine Glucose Urine Opiates Screen Urine Methadone Screen Ur Barbiturates Screen Ur Tricyclics Screen Ur Amphetamines Screen U Benzodiazepines Scrn Urine Cocaine Screen Ur THC Screen Ethyl Alcohol COVID-19 Source SARS-CoV-2 (PCR)
[2021-02-17] MEDS: Citalopram 20 MG TAB PO (08:39)
[2021-02-17] MEDS: Pantoprazole 40 MG TABCR PO (08:39)
[2021-02-17] MEDS: Carvedilol 6.25 MG TAB PO (08:45)
[2021-02-17] MEDS: Folic Acid 1 MG TAB PO (08:45)
[2021-02-17] MEDS: Lisinopril 10 MG TAB PO (08:46)
[2021-02-17] MEDS: Cyanocobalamin 500 MCG TAB 1000 MCG PO (08:50)
[2021-02-17] MEDS: Nystatin POWDER 60 GM JAR TP ×2 (08:52→20:02)
--- NOTE | 2021-02-17 09:12 | NUR.NOTE ---
Patient sent to radiology for echocardiogram and CT of left upper abdomen.Nursing Note:
--- NOTE | 2021-02-17 10:30 | NUR.NOTE ---
Patient remains off the unit undergoing testing namely CT of abdomen and echocardiogram.Nursing Note:
[2021-02-17] MEDS: Ferrous Sulfate 325 MG TAB PO ×2 (10:51→20:01)
[2021-02-17] MEDS: Methocarbamol 750 MG TAB PO ×4 (10:51→22:17)
--- NOTE | 2021-02-17 10:51 | INITIAL_ITS ---
- If Service Date Differs Date of service: 02/17/21 Time of Service: 10:51 Care Management Initial Assess REASON FOR HOSPITALIZATION:: Lethargy, YOGESH, dehydration PAST MEDICAL HISTORY/PAST SURGICAL HISTORY:: Medical History. Anxiety disorder. Cerebral palsy. Chronic anemia. Heart failure with preserved ejection fraction. Osteoarthritis of right hip joint due to dysplasia. Polycystic ovaries. Rhabdomyolysis. Scoliosis (and kyphoscoliosis), idiopathic. Toxic metabolic encephalopathy (~11/26/20). Surgical History. S/P spinal fusion. Status post G[place] procedure PREVIOUS FUNCTIONAL STATUS/SOCIAL/FAMILY SUPPORTS:: Paige is currently residing at a hotel in [place], [place]. Her lives in [place], [place]. She reported that she cannot live with him because his home is not accessible to her. She uses a w/c and walker at baseline. She receives support from her , friends, and a case advocate, Amanda at [facility]. CURRENT FUNCTIONAL STATUS:: Paige was lying in bed when CM met with her. She reported feeling better today than when she arrived, although she is still not feeling her best. She reported that her case advocate, Amanda, is trying to get her home health services. CM will recommend HH services upon discharge. CM asked about her living situation, which Paige stated that she has just had her hotel voucher renewed for another month, and it will likely continue to be renewed due to her medical necessity. Per report, she continues to be monitored at this time. CM will continue to follow. ADVANCE DIRECTIVES:: None on file. CM will offer forms. Has patient been provided with info about the portal/API?: Yes Did the patient sign up for the portal?: No CODE STATUS:: Full Code INSURANCE COVERAGE / FINANCIAL ISSUES:: [employer] plan CURRENT HOME/COMMUNITY SERVICES/EQUIPMENT:: Paige has a manual wheel chair, a 4WW and a shower chair. She has MOW and a case advocate, Amanda, from [facility]. PRIMARY CARE PHYSICIAN:: unknown. CM will assist in establishing new local PCP, if interested. POTENTIAL DISCHARGE NEEDS:: Evaluations for further needs, follow up appointments. PATIENT/FAMILY EDUCATION NEEDS:: Review discharge instructions regarding activity levels and medications, discussion of self care needs and goals of care. ANTICIPATED BARRIERS TO DISCHARGE:: None identified. TRANSPORTATION:: Via private vehicle by her . PLAN:: Anticipate Paige will return to the hotel room with new HH PT/OT. Her will drive her home via private vehicle. She will follow up with her PCP and discharge plan of care. CM will continue to follow.
--- NOTE | 2021-02-17 10:53 | NUR.NOTE ---
Patient begins working with physical therapist.Nursing Note:
--- NOTE | 2021-02-17 11:30 | IN_ITS ---
Date of service: 02/17/21 Time of Service: 11:00 PT Notes Visit Reasons: Lethargy, YOGESH, Dehydration Inpatient Physical Therapy Evaluation Date: 02/17/21 Referring Doctor: Dr. Hollins PT Orders: PT CONSULT: limited ability to ambulate Precautions: fall, standard Patient Profile/Admitting Diagnosis: Patient admitted for medical management of dehydration, chronic anemia, and tachycardia in the presence of spastic cerebral palsy. PMHX: Anxiety disorder Cerebral palsy Chronic anemia Heart failure with preserved ejection fraction Osteoarthritis of right hip joint due to dysplasia Polycystic ovaries Rhabdomyolysis Scoliosis (and kyphoscoliosis), idiopathic Toxic metabolic encephalopathy (~11/26/20) Surgical History (Updated 02/17/21 @ 01:19 by Danilo Sood) S/P spinal fusion Status post Girdlestone procedure Social History/Home Situation: Patient currently living in a hotel, which is handicap accessible. She had stable housing up until that point, but was unable to secure handicap accessible housing after her apartment building sold. She no longer drives. Has support from her ex- and their children, who she assists with educating. 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 She has had extensive PT in the past, although none for the past year. States that she has a series of home exercises that she completes daily, primarily to work on her spasticity. She also uses resistance bands for upper extremity strengthening, and walks laps in her hotel room for exercise. She primarily walks with a 4 WW, although has a wheelchair that she uses for community excursions or if she needs to carry things. Equipment Owned/DME: 4WW. Manual wheelchair. Shower chair. Currently having meals delivered. Subjective: Paige states that she's feeling a little better. She reports that her spasticity is worse than usual due to getting off schedule with her meds. States that she wants to get out of bed and walk, as that always helps with her spasticity. She is demonstrating a significant tremor during conversation, and she states that this is worse when she's nervous, and improves when she's alone. States that she does not feel any weaker than usual, and feels confident in her ability to walk. Objective: General Observation: Resting in bed, with significant tremor of the head, trunk, and UEs. Monitored on telemetry, with BP cuff and pulse oximeter. Supplemental O2 via nasal cannula. Mental Status: A&Ox3. Provides clear and consistent history. Pain: denies Vital Signs: HR resting at 110, increasing up to 135 during session. Highest during supine-sit transfer. ROM: Right Upper Extremity: Shoulder flexion allows 150 degrees actively. Elbow motion WFL. 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 Left Upper Extremity: Passive shoulder flexion allows 150 degrees, although with significant spasticity. Elbow flexion limited by IV in antecubital fossa. Right Lower Extremity: Hip flexion allows 80 degrees. AB to 10 degrees. Hamstring length via SLR allows 45 degrees. Knee flexion to 70 degrees, limited by spasticity. Ankle DF to neutral. Left Lower Extremity: Hip flexion allows 30 degrees in supine, 80 degrees in sitting position. Knee flexion allows 45 degrees in supine. Once in sitting, she has continued LLE spasticity preventing knee flexion. She tolerates approx 45 degrees knee flexion by end of session. Strength: Right Upper Extremity: Shoulder flexion 3/5 or greater. Elbow and wrist motions 3/5 or greater. Left Upper Extremity: Shoulder flexion 2/5. Elbow flexion 3/5 or greater. Right Lower Extremity: Quads 3/5, but functionally unable to perform SLR on the right. Hip adduction 3 -/5. Left Lower Extremity: Quads 3/5 or greater. Hip AB/adduction 3 -/5. Bed Mobility/Transfers: Supine?sit: Mod assist Sit?stand: CGA x2 Stand?sit: CGA x2 Gait: Patient ambulates 6 feet with FW W and CGA x2. She relies heavily on upper extremity support to FW W. In standing position, demonstrate significant improvements in tremor. Balance: Static Sitting: Poor (mod assist) Dynamic Sitting: Poor Static Standing: Fair Dynamic Standing: Fair Special Tests: Mobility Limitations Standardized Measure [facility]-PAC 6 clicks Basic Mobility Inpatient Short Form: Raw Score: 15 CMS Score: 58% deficit Informed Consent/Education: Patient instructed in purpose of PT consult and plan of care. Treatment: The session consisted of evaluation and discussion regarding appropriate plan of care. Assessment: Patient is a 45 year old female referred to physical therapy services with the diagnosis of dehydration, chronic anemia, tachycardia. Patient presents with clinical signs and symptoms consistent with limitations in mobility related to acute medical issues and complicated by spastic CP. She currently demonstrates the following impairment level findings: 1. UE/LE spasticity 2. Decreased functional strength of upper extremities and lower extremities 3. Gait impairments 4. Baseline mobility deficits 5. Tremor 6. AM-PAC score indicating 58% impairment Impairments are contributing to the following functional limitations: 1. Unable to independently perform bed mobility 2. Unable to independently ambulate at baseline level of function 3. Poorly controlled spasticity 4. Diminished sitting balance Patient is assessed as Moderate 54840 complexity based on the following: History: 45-year-old female with limited mobility related to acute medical issues on top of chronic spastic CP. Patient remains very independent at baseline, although demonstrates diminished mobility on evaluation today, primarily related to her poorly controlled spasticity. Complicating factors include unstable housing, which has also distanced her from her family support system. She additionally has multiple orthopedic issues, including history of multiple spinal surgeries, history of Girdlestone procedure of the right hip, and rotator cuff surgery on the right shoulder. Examination: Functional imitations as noted above Presentation: Evolving Decision Making: Moderate complexity Goals: Goals X1 week 1. Supine-Sit : Supervision 2. Sit-Supine: Supervision 3. Sit-Stand: Supervision 4. Stand-Sit: Supervision 5. Bed-Chair: Supervision with FW W 6. Chair-Bed: Supervision with FW W 7. Gait: Supervision x50 feet with FW W Plan of Care/Treatment Plan: 1-2x/day, 7 days/week x 1 week. Plan of care has been reviewed with the [employer] CUTTER providing the service under Physical Therapy direction. Initiate Physical Therapy intervention for strengthening, bed mobility, transfers, gait, stairs, balance training, use of assistive device. DISCHARGE RECOMMENDATIONS: Anticipate patient will be able to discharge home once medically stable TREATMENT CODE/TIME: 11:00?1120 ([id number]) Kandi Hardy, PT, DPT [facility]
[2021-02-17] MEDS: Ondansetron 4 MG/2 ML VIAL IVP ×2 (11:46→17:46)
--- NOTE | 2021-02-17 12:52 | NUR.NOTE ---
Case Management meets with patient.Nursing Note:
[2021-02-17] MEDS: LORazepam 1 MG TAB PO ×3 (13:35→22:17)
--- NOTE | 2021-02-17 14:13 | NUR.NOTE ---
RN wastes 4mg of Ondansetron.Nursing Note:
[2021-02-17] MEDS: Omnipaque 350 MG/ML 50 ML BTL PO (14:34)
[2021-02-17] MEDS: Breeza Beverage 473 ML BTL PO (14:35)
[2021-02-17] MEDS: levoFLOXacin 750 MG/150 ML BAG 100 MG IVPB (14:56)
[2021-02-17 15:02] LABS: Lactate 1.4 mmol/L (0.6-1.4)
--- NOTE | 2021-02-17 15:24 | PHA.REVIEW ---
Pharmacy Admission Review - Admission Clinical Review (Last Updated 02/17/21 @ 01:19 by Danilo Sood) Dehydration (Acute) Discharge planning issues (Acute) DVT prophylaxis (Acute) Ambulatory dysfunction (Acute) Sinus tachycardia (Acute) Gastroenteritis (Acute) Abrasion of skin of left thigh (Acute) Weakness (Acute) Light-headed (Acute) Orthostatic hypotension (Acute) YOGESH (acute kidney injury) (Acute) amoxicillin Allergy (Unverified 02/16/21 16:38) morphine Allergy (Unverified 02/16/21 16:39) bees Allergy (Uncoded 02/16/21 16:39) pine nuts Allergy (Uncoded 02/16/21 16:40) Resuscitation Status Full Code Height 4 ft 11 in Weight 80.1 kg - Renal Dosing Renal Dosing: BUN 11 mg/dL (7-18) D 02/17/21 06:33 Creatinine 1.3 mg/dL (0.55-1.02) H 02/17/21 06:33 Medications needing adjustments: Intervened List of meds needing interventions: eCrCl is 52.6 ml/min using adjusted body weight -- borderline for needing adjustment of frequency of levofloxacin to q48h -- watch for worsening of kidney fxn; adjusted lmwh dose from 30 to 40 mg - Anticoagulation Anticoagulation: Hgb 9.1 g/dL (11.2-15.7) L 02/17/21 06:33 Hct 31.4 % (36.0-46.0) L 02/17/21 06:33 Plt Count 302 10^3/uL (130-400) 02/17/21 06:33 Creatinine 1.3 mg/dL (0.55-1.02) H 02/17/21 06:33 DVT Prophylaxis: Reviewed Medications: Enoxaparin Therapeutic Anticoagulation: Reviewed - Opiate Usage Evaluate Pain Scale/Pains Meds: N/A - Relevant Labs Sodium 143 mmol/L (136-145) 02/17/21 06:33 Potassium 4.5 mmol/L (3.5-5.1) 02/17/21 06:33 Chloride 108 mmol/L (98-107) H 02/17/21 06:33 Magnesium 1.9 mg/dL (1.8-2.4) 02/16/21 17:15 Electrolytes, C-Reactive P, ESR: Reviewed - DM Control DM Control: Glucose 77 mg/dL (74-106) D 02/17/21 06:33 Insulin Dosing: N/A - Heart Failure/DE Heart Failure/DE: Troponin I < 0.05 ng/mL (<0.06) 02/16/21 17:15 EF%, SERJIO's, B-Blockers, Diuretics: Reviewed - BP Control BP Control: Blood Pressure 179/96 Blood Pressure 169/58 Blood Pressure 160/111 Blood Pressure 163/107 Blood Pressure 158/98 Blood Pressure 230/120 Blood Pressure 168/98 If elevated: Reviewed List meds needing interventions: carvedilol dose increased to 12.5 BID - Qtc Review If Elevated: Reviewed List meds needing interventions: citalopram + levaquin poses risk of qt prolongation, MDA - Home Meds Home Med List reviewed: Reviewed Relevent Home Meds Not ordered & why?: reported baclofen dose is above normal recommended daily max of 80mg; per CONTRACTING ANALYST last fill of lorazepam was on 08/23/20 for a qt of 20, prior to that was in february of 2020 for a qt of 10 -- removed from home med list for now - Current meds Current Medication Order Review: Reviewed (levaquin initiated for aspiration pna, lisinopril on hold for YOGESH -- monitor kidney function, if worsens then levaquin frequency would need to be adjusted)
[2021-02-17 15:45] LABS: Procalcitonin < 0.1 ng/mL
--- NOTE | 2021-02-17 15:50 | PT.INTREAT ---
Date of service: 02/17/21 Time of Service: 15:15 PT Notes Visit Reasons: Lethargy, YOGESH, Dehydration Inpatient Physical Therapy Treatment Note [facility] Date: 02/17/2021 PRECAUTIONS: CP SUBJECTIVE: Paige is pleasant and agreeable to participating in PT. She states that she wants to stand and walk because that helps reduce/alleviate some of the tremors in her LE. She states that she feels 60-80% back to baseline at this time. OBJECTIVE: PAIN: No c/o pain BED MOBILITY/TRANSFERS Supine-sit: Mod A Sit-supine: Mod A Sit-stand: CGA Stand-sit: CGA GAIT Assistive Device: FWW Weight bearing: Full Assist: CGA Distance: ~20' MANUAL THERAPY: Performed gentle passive stretching to L hamstrings and hip adductors 3x20 seconds each. ASSESSMENT: Patient tolerated session without complaint. She was able to tolerate a progression in gait distance with FWW support and CGA. She would benefit from continued transfer training and global strengthening for improved mobility and continued progression toward baseline level of function. PLAN: Continue with gait and transfer training and strengthening TREATMENT CODE/TIME: 15 minutes; [id number] (15:15)
--- NOTE | 2021-02-17 19:22 | WOUNDCONS ---
- If Service Date Differs Date of service: 02/17/21 Time of Service: 16:21 Wound Initial Evaluation Narrative: Pt had a consult placed for a left posterior thigh wound. Pt stated she received the wound when exiting a hotel fold out couch bed a little while ago. Pt states she takes pictures of it at home to see it, and puts bandaids on it which she changes daily as well as cortisone cream around the dry patch of skin. The wound is partial thickness with no induration or increased warmth noted. The wound measures 0.4 cm x 0.8 cm x 0.1 cm. Scant serous drainage noted. wound bed is light pink with a slight purplish periphery. - Wound Left posterior calf Wound Length: 0.4 cm Wound Width: 0.8 cm Wound Depth: 0.1 cm Wound Drainage Amount: Minimal Wound Drainage Odor: None/Absent Wound Drainage Description: Serous - Recomendation Recomendation:: Left posterior thigh- Recommend cleanse with ns, pat dry, apply mepilex with border, change q 5 days and PRN.
[2021-02-17] MEDS: Carvedilol 6.25 MG TAB 12.5 MG PO (20:01)
[2021-02-17] MEDS: Enoxaparin 40 MG/0.4 ML SYR SC (20:03)
[2021-02-18] VITALS (29 sets, daily range): BP systolic 145–230; BP diastolic 80–125; PULSE 71–107; RESP 22; TEMP 36.9–37.3; O2SAT 87–100
[2021-02-18] MEDS: Ondansetron 4 MG/2 ML VIAL IVP ×2 (01:28→16:14)
[2021-02-18] MEDS: Lactated Ringers 1,000 ML 125 ML IV ×3 (01:32→19:51)
[2021-02-18] MEDS: Methocarbamol 750 MG TAB PO ×4 (06:14→22:57)
[2021-02-18] MEDS: LORazepam 1 MG TAB PO ×3 (06:14→21:17)
[2021-02-18] MEDS: Metoprolol 5 MG/5 ML VIAL IVP ×2 (07:00→16:40)
[2021-02-18 07:31] LABS: HCT 30.6 % (36.0-46.0); HGB 8.9 g/dL (11.2-15.7)
[2021-02-18 07:44] LABS: BUN 7 mg/dL (7-18); CREATININE 1.1 mg/dL (0.55-1.02); Calcium 9.3 mg/dL (8.5-10.1); Chloride 104 mmol/L (98-107); Estimated GFR 53.71 (mL/min/1.73m2); Glucose 85 mg/dL (74-106); Magnesium 1.7 mg/dL (1.8-2.4); Potassium 4.1 mmol/L (3.5-5.1); Sodium 139 mmol/L (136-145)
--- NOTE | 2021-02-18 08:26 | W.PM.PROGNOT ---
Date of Service Date of service: 02/18/21 Time of Service: 16:30 Assessment and Plan Assessment and plan (1) Gastroenteritis: Status: Resolved Assessment and plan: Patient with diarrhea/n/v. Tolerating a diet. No significant pathology on CT. COVID-19 negative. Clinically improving. Continue IVF. (2) Aspiration pneumonia: Status: Acute Assessment and plan: New O2 requirement in setting of vomiting. RLL infiltrate on imaging. Continue levofloxacin day 2. Await blood cultures. (3) Sinus tachycardia: Status: Acute Assessment and plan: Suspect due to dehydration as well as possible infectious process. No evidence of DVT and HR/O2 requirements are better today, after IVF and antibiotics, so clinically PE is not likely. Continue IVF, BB. (4) Dehydration: Status: Acute Assessment and plan: Continue IVF. No systolic/dyastolic dysfunction evident on echo. (5) YOGESH (acute kidney injury): Status: Acute Assessment and plan: Improving with IVF. Continue. Resume Reji-i. (6) Light-headed: Status: Resolved Assessment and plan: secondary to dehydration.Continue IVF. (7) Chronic anemia: Status: Chronic Assessment and plan: Multifactorial - due to iron, B12, and folic acid deficiency. Replete all of the above and monitor H/H. (8) Abrasion of skin of left thigh: Status: Acute Assessment and plan: Wound care consulted. (9) Hypertension: Status: Chronic Assessment and plan: Increase coreg. prn IV lopressor. Resume acei. Consider addition of HCTZ or norvasc on discharge. (10) Ambulatory dysfunction: Status: Acute Assessment and plan: PT consulted. The patient does really well with a walker and wheelchair. Continue PT while inpatient. Will benefit from home health PT. (11) DVT prophylaxis: Status: Acute Assessment and plan: Enoxaparin (12) Discharge planning issues: Status: Acute Assessment and plan: Full code Continues to require hospitalization Subjective Subjective Interval history since last seen: Paige feels better today. Denies dizziness, chest pain, shortness of breath. Did have waves of nausea, but tolerated regular lunch. States she now feels constipated rather than diarrhea. No abdominal pain. Desaturated to mid-upper 80s on RA while slept - required 2L. HR 80s - 130s. HR low 100s right now. Afebrile. On room air now. Exam Narrative Exam Narrative: General: Very pleasant middle-aged female who is tremulous/spastic, but looks more comfortable than yesterday, A&Ox3, on room air HEENT: EOMI, MMM Heart: RRR, less tachycardic than yesterday Lungs: Diminished breath sounds B Abdomen: soft, mildly distended, nontender, +BS Extremities: 1+ edema BLE's, LLE>RLE. Objective Last Vital Signs Temp 37.3 C 02/18/21 00:01 Pulse 104 H 02/18/21 07:02 Resp 22 02/17/21 20:18 BP 189/118 H 02/18/21 06:47 Pulse Ox 94 02/18/21 06:30 Laboratory Results - last 24 hr 02/17/21 02/17/21 02/18/21 14:31 14:31 06:55 Hgb Hct VBG Lactate 1.4 Sodium 139 Potassium 4.1 Chloride 104 Carbon Dioxide 25.0 Anion Gap 10.0 BUN 7 Creatinine 1.1 H Estimated GFR/1.73 m2 53.71 Glucose 85 Calcium 9.3 Magnesium 1.7 L Procalcitonin < 0.1 02/18/21 06:55 Hgb 8.9 L Hct 30.6 L VBG Lactate Sodium Potassium Chloride Carbon Dioxide Anion Gap BUN Creatinine Estimated GFR/1.73 m2 Glucose Calcium Magnesium Procalcitonin
[2021-02-18] MEDS: MAGNESIUM SULFATE 1 GM/100 ML BAG IVPB (08:46)
[2021-02-18] MEDS: Citalopram 20 MG TAB PO (08:47)
[2021-02-18] MEDS: Carvedilol 6.25 MG TAB 12.5 MG PO ×2 (08:47→19:49)
[2021-02-18] MEDS: Normal Saline Flush 10 ML SYR IVP ×2 (08:47→19:53)
[2021-02-18] MEDS: Folic Acid 1 MG TAB PO (08:47)
[2021-02-18] MEDS: Ferrous Sulfate 325 MG TAB PO ×2 (08:47→19:49)
[2021-02-18] MEDS: Pantoprazole 40 MG TABCR PO (08:47)
[2021-02-18] MEDS: Cyanocobalamin 500 MCG TAB 1000 MCG PO (08:48)
[2021-02-18] MEDS: Baclofen 10 MG TAB 40 MG PO ×3 (08:49→19:49)
[2021-02-18] MEDS: Nystatin POWDER 60 GM JAR TP ×2 (10:02→19:53)
--- NOTE | 2021-02-18 12:53 | CMPROGNOTE_ITS ---
- If Service Date Differs Date of service: 02/18/21 Time of Service: 12:53 Care Management Progress Note S/O: Paige was lying in bed when CM met with her. She reported that she is feeling better today. Per MD, she is not yet medically cleared to return home. PT has recommended out patient PT, and CM discussed this with the patient. Paige stated that she would prefer services, but CM advised that due to limitations with her [place], she will not be eligible for services at this time. She is agreeable to outpatient PT. She reported that she has a meeting with her community health nursing director, Amanda, on Sunday to begin the transition to [facility] and for her to have a local PCP. Currently her PCP is Dr. Meet Chaney at [facility] ([place], [place]), and she has a follow up appointment already scheduled with him on 03/03/21. CM informed [facility] of the referral. She will require RCT transportation home. CM will send an Authorization form to [facility] on Sunday, if she leaves over the weekend. CM will continue to follow. A: Paige is a 45 year old female admitted to [facility] on 02/16/21 with lethargy, YOGESH, dehydration. P: Anticipate Paige will return to the hotel room with a referral to outpatient PT at [facility] in [place]. She is meeting with her community health nursing director on Sunday to transition her care to [place]. She will follow up with her PCP (03/03/[address] Chaney) and discharge plan of care. She will tr ansport home via [facility] w/c van. CM will continue to follow.
--- NOTE | 2021-02-18 12:53 | PDOC.CMPRO ---
- If Service Date Differs Date of service: 02/18/21 Time of Service: 12:53 Care Management Progress Note S/O: Paige was lying in bed when CM met with her. She reported that she is feeling better today. Per MD, she is not yet medically cleared to return home. PT has recommended out patient PT, and CM discussed this with the patient. Paige stated that she would prefer services, but CM advised that due to limitations with her [place], she will not be eligible for services at this time. She is agreeable to outpatient PT. She reported that she has a meeting with her community service officer coordinator, Amanda, on Sunday to begin the transition to [facility] and for her to have a local PCP. Currently her PCP is Dr. Meet Chaney at [facility] ([place], [place]), and she has a follow up appointment already scheduled with him on 03/03/21. CM informed [facility] of the referral. She will require RCT transportation home. CM will send an Authorization form to [facility] on Sunday, if she leaves over the weekend. CM will continue to follow. A: Paige is a 45 year old female admitted to [facility] on 02/16/21 with lethargy, YOGESH, dehydration. P: Anticipate Paige will return to the hotel room with a referral to outpatient PT at [facility] in [place]. She is meeting with her community service officer coordinator on Sunday to transition her care to [place]. She will follow up with her PCP (03/03/[address] Chaney) and discharge plan of care. She will transport home via [facility] w/c van. CM will continue to follow.
--- NOTE | 2021-02-18 13:28 | PT.INTREAT ---
Date of service: 02/18/21 Time of Service: 13:00 PT Notes Visit Reasons: Lethargy, YOGESH, Dehydration Inpatient Physical Therapy Treatment Note [facility] Date: 02/18/21 PRECAUTIONS:standard SUBJECTIVE: Paige states that she sees improvements in her tremor and her tone, particularly after LE stretching. She's been getting up with nursing to stand or walk to the chair when she feels tight. OBJECTIVE: PAIN: well managed BED MOBILITY/TRANSFERS Supine-sit: mod A Sit-supine: mod A Sit-stand: CGA Stand-sit: CGA GAIT Assistive Device: FWW Weight bearing: full Assist: SBA Distance: 25' Deviation: Significant gait impairment due to LLE tone and shortened right limb. During ambulation, LLE remains in hip flexion and knee extension, and RLE weightbearing is in maximally plantar flexed ankle position. She relies heavily on UE support to FWW, and has significant forward trunk flexion. VITALS: Monitored on telemetry throughout. HR 105 at rest, up to 115 during session. THEREX: Patient was instructed in therex program as noted on flowsheet. Initiated abdominal strengthening for improved bed mobility, with patient completing oblique reaches, and assisted partial crunches, both from recumbent position. Also added isometric shoulder extension with cues for breathing. Patient received LE stretching and passive PNFs for tone management, all with good tolerance. ASSESSMENT: Improving mobility and tone management. PLAN: Continue PT to maximize mobility during her acute care stay. Recommend outpatient or PT upon discharge for continued progress toward goals. TREATMENT CODE/TIME: 1:00-1:25 ([id number]) Kandi Hardy, PT, DPT [facility]
[2021-02-18] MEDS: levoFLOXacin 750 MG/150 ML BAG 100 MG IVPB (13:35)
[2021-02-18] MEDS: Normal Saline 500 ML IV (13:41)
[2021-02-18 13:45] LABS: C Diff PCR Negative (Negative)
--- NOTE | 2021-02-18 15:27 | PTTR_ITS ---
Date of service: 02/18/21 Time of Service: 07:50 PT Notes Visit Reasons: Lethargy, YOGESH, Dehydration Inpatient Physical Therapy Treatment Note [facility] Date: 02/18/21 PRECAUTIONS: CP, activity as tolerated SUBJECTIVE: Paige is pleasant and agreeable to participating in PT. She reports that she got solid sleep last night and feels much better. She has noticed decreased tremors today versus yesterday. OBJECTIVE: PAIN: No c/o pain MOBILITY/TRANSFERS Sit-supine: Mod A Sit-stand: CGA Stand-sit: CGA GAIT Assistive Device: FWW Weight bearing: Full Assist: SBA Distance: 20' x2 Deviation: Seated rest x1 MANUAL THERAPY: Perform passive stretching to L hamstrings, quads, and hip adductors, with good relief, as well as gentle rocking into L hip IR/ER in hook- lying. ASSESSMENT: Patient tolerated session well, without complaint. She was able to tolerate a progression in gait distance with FWW support and SBA. She demonstrates improved range of motion in L LE, and activity tolerance. PLAN: Continue with manual therapy and gait training for continued mobility progression. TREATMENT CODE/TIME: 30 minutes; [id number] x2 (07:50)
[2021-02-18] MEDS: Lisinopril 10 MG TAB PO (16:59)
[2021-02-18] MEDS: Acetaminophen 325 MG TAB PO (19:50)
[2021-02-18] MEDS: Enoxaparin 40 MG/0.4 ML SYR SC (21:17)
[2021-02-19] VITALS (25 sets, daily range): BP systolic 145–178; BP diastolic 86–115; PULSE 76–106; RESP 16–20; TEMP 37–37.5; O2SAT 92–98
--- NOTE | 2021-02-19 | DI.RAD_ITS ---
Exam(s) XR CHEST 1V IN DI DEPT EXAM: XR CHEST 1V IN DI DEPT CLINICAL HISTORY: follow up aspiration pneumonitis TECHNIQUE: COMPARISON: CR,XR XR CHEST 2V PA LATERAL from 02/16/[address] CHEST PE CTA from 02/19/[address] CHEST PE CTA from 02/19/2021 FINDINGS: The heart is mildly enlarged. Lungs are grossly clear and well expanded. There are metallic spinal fixation devices in thoracic and lumbar region. IMPRESSION: No evidence of acute process. RADIATION DOSE DELIVERED: Total DLP
--- NOTE | 2021-02-19 | DI.US_ITS ---
Exam(s) US RENAL EXAM: US RENAL CLINICAL HISTORY: YOGESH; polycystic kidneys TECHNIQUE: Ultrasound performed using standard protocol. COMPARISON: CT CT ABDOMEN PELVIS WO from 02/17/2021 FINDINGS: The patient reportedly has history of polycystic kidney disease. There are multiple bilateral renal cysts noted. Largest on the right measures about 5 cm in diameter and largest on left measures about 2 cm in diameter. There is no gross hydronephrosis. No nephrolithiasis is identified. Urinary viktoriya dder contains 221 cc of urine. The patient was unable to void. IMPRESSION: Limited study, consistent with prior diagnosis of polycystic kidney disease. No evidence of hydronep hrosis at this time. Right kidney measures 9.2 x 5.7 x 5.6 cm and left kidney measures 12.1 x 6.3 x 5.3 cm. DATA REPOSITORY:
[2021-02-19] MEDS: LORazepam 1 MG TAB PO ×3 (02:47→19:34)
[2021-02-19] MEDS: Acetaminophen 325 MG TAB PO ×3 (02:47→16:41)
[2021-02-19] MEDS: Methocarbamol 750 MG TAB PO ×3 (02:47→16:41)
[2021-02-19] MEDS: Lactated Ringers 1,000 ML 125 ML IV (04:00)
[2021-02-19 06:47] LABS: Abs Immature Grans 0.02 10^3/uL (0.0-0.06); Absolute Basophil Count 0.01 10^3/uL (0.0-0.2); Absolute Eosinophil Count 0.09 10^3/uL (0.0-0.7); Absolute Lymphocyte Count 1.63 10^3/uL (1.2-3.4); Absolute Monocyte Count 0.51 10^3/uL (0.1-0.8); Absolute Neutrophil Count 3.24 10^3/uL (1.2-6.7); Basophils % 0.2; Eosinophils % 1.6; HCT 28.2 % (36.0-46.0); HGB 8.4 g/dL (11.2-15.7); Immature Grans % 0.4; Lymphocytes % 29.6; MCH 23.3 pg (27.0-33.0); MCHC 29.8 % (32.0-36.0); MCV 78.3 fL (80-95); MPV 12.3 fL (8.0-11.0); Monocytes % 9.3; Neutrophils % 58.9; Nucleated RBC 0 %; Platelet Count 254 10^3/uL (130-400); RDW 16.6 % (11.7-14.6); RDW-SD 47.4 fL
[2021-02-19 06:58] LABS: Anion Gap 7.5 mmol/L (3-11); BUN 9 mg/dL (7-18); CO2 27.5 mmol/L (21.0-32.0); Calcium 8.9 mg/dL (8.5-10.1); Chloride 103 mmol/L (98-107); Estimated GFR 59.96 (mL/min/1.73m2); Glucose 88 mg/dL (74-106); Magnesium 1.7 mg/dL (1.8-2.4); Potassium 4.1 mmol/L (3.5-5.1); Sodium 138 mmol/L (136-145)
[2021-02-19] MEDS: Carvedilol 6.25 MG TAB 12.5 MG PO (08:06)
[2021-02-19] MEDS: Ferrous Sulfate 325 MG TAB PO ×2 (08:06→19:33)
[2021-02-19] MEDS: Cyanocobalamin 500 MCG TAB 1000 MCG PO (08:06)
[2021-02-19] MEDS: Folic Acid 1 MG TAB PO (08:07)
[2021-02-19] MEDS: Citalopram 20 MG TAB PO (08:07)
[2021-02-19] MEDS: Baclofen 10 MG TAB 40 MG PO ×3 (08:07→19:33)
[2021-02-19] MEDS: Pantoprazole 40 MG TABCR PO (08:07)
[2021-02-19] MEDS: Lisinopril 10 MG TAB PO ×2 (08:07→10:42)
[2021-02-19] MEDS: Nystatin POWDER 60 GM JAR TP ×2 (08:08→19:37)
--- NOTE | 2021-02-19 09:53 | PT.INTREAT ---
PT Notes Visit Reasons: Lethargy, YOGESH, Dehydration Inpatient Physical Therapy Treatment Note [facility] Date: 02/19/21 PRECAUTIONS:[] SUBJECTIVE: Pt reports that she has already been up with nursing this am and would like to just complete the PROM today because it was very helpful last time. Pt is feeling more herself and feels she will be able to go home tomorrow. OBJECTIVE: Rolling L/R: Max x 2 Supine-sit: [] Sit-supine: Mod x2 Sit-stand: [] Stand-sit: CGA GAIT Assistive Device: FWW Weight bearing: full Assist: [] Distance: Pt transferred from the commode to the bed which were very close to each other. Pt received PROM of the L LE into hip flexion, IR/ER of the hip with light rocking, hamstring stretching, and single knee to chest stretching. ASSESSMENT: [] PLAN:Cont with PROM and if still not going home tomarrow we will try ambulation as well as manual therapies. TREATMENT CODE/TIME: MTx1 (15) 9:15-9:30
[2021-02-19] MEDS: Carvedilol 12.5 MG TAB PO (10:41)
[2021-02-19 11:23] LABS: Campylobacter PCR Negative (Negative); Salmonella PCR Negative (Negative); Shiga Toxin PCR Negative (Negative); Shigella/Enteroinvasive Ecoli Negative (Negative)
[2021-02-19] MEDS: Spironolactone 25 MG TAB PO (11:47)
--- NOTE | 2021-02-19 14:18 | W.PM.PROGNOT ---
Date of Service Date of service: 02/19/21 Time of Service: 14:18 Assessment and Plan Assessment and plan (1) Aspiration pneumonia: Status: Acute Assessment and plan: patient is currently on Levaquin d/t amoxicillin allergy however clindamycin would be more appropriate coverage for aspiration (anaerobic coverage). Qualifiers: Aspiration pneumonia type: due to regurgitated food Laterality: right Lung location: lower lobe of lung Qualified Code(s): J69.0 - Pneumonitis due to inhalation of food and vomit (2) Sinus tachycardia: Status: Acute Assessment and plan: unclear as to what is driving her persistent tachycardia despite use of carvedilol for her HTN. I will check d-dimer and if significantly elevated proceed w/ CTA chest now that her YOGESH has resolved. She has been on lovenox for dvt prophylaxis and had negative duplex study of her legs so PE is less likely but she could have had a pelvic vein thrombus or iliac thrombosis which would not get picked up on her lower extremities US. She is afebrile and not in severe pain therefore I can not identify other drivers for her tachycardia. She did have episode yesterday of emesis and aspiration pneumonitis but she is afebrile and not symptomatic. (3) Chronic anemia: Status: Chronic Assessment and plan: does not appear to be d/t acute GI bleed. will monitor CBC and check iron studies, B12 and folate in the morning. (4) YOGESH (acute kidney injury): Status: Resolved Assessment and plan: resolved. iv fluids were still running this a.m. but I have discontinued this. (5) Hypertension: Status: Chronic Assessment and plan: patient's lisinopril was restarted at lower dose of 10 mg daily. Her home dose is 20 mg which I have increased. Also added spironolactone but will change to chlothalidone. May need to add norvasc to her regimen. Her Coreg dose was increased to 25 mg bid. Qualifiers: Hypertension type: primary hypertension Qualified Code(s): I10 - Essential (primary) hypertension (6) Ambulatory dysfunction: Status: Acute Assessment and plan: cont. P.T. (7) DVT prophylaxis: Status: Acute Assessment and plan: cont. enoxaparin SC (8) Discharge planning issues: Status: Acute Assessment and plan: patient anticipates dc to hotel where she was staying w/ home health and P.T. to follow her. Subjective Subjective Interval history since last seen: Patient continues to improve. She is now tolerating an oral diet. IV fluids are being discontinued. Blood pressure remains elevated she continues to have tachycardia despite adequate hydration. She is moderately anemic w/ Hb of 8.4 gm but this has been stable throughout her hospital course. She is on iron supplementation for iron deficiency anemia. No evidence of overt GI bleeding. Stool for occult blood has been ordered but not collected. She had episode nausea and vomiting yesterday for which it was felt that she had an aspiration event. She was placed on Levaquin. She remains afebrile this morning. She had been on 2 L/min per nasal cannula with a saturation 97% but is been weaned down to room air and is running 91-92% saturation. I will recheck a chest x-ray today. She had minimal cough this morning is been nonproductive. She been using her incentive spirometer. She has been afebrile. T-max in last 24 hours was 37.3. Blood pressure remains elevated 147/100 heart rate remains in the 90s to low 100s sinus tachycardia. Her BUN is down to 9 creatinine is down to 1.0. Magnesium is low at 1.7 with a normal potassium of 4.1. I have ordered magnesium supplementation. Exam Narrative Exam Narrative: Middle age female sitting up in a chair. No dyspneic. She has spasms of her limbs Lungs: diminished breath sounds at the bases but otherwise clear Heart: tachycardic but regular Abdomen: soft and nontender Lower extremities: trace of edema over lower tibia but improved. Objective Last Vital Signs Temp 37.1 C 02/19/21 11:50 Pulse 96 H 02/19/21 11:50 Resp 20 02/19/21 11:50 BP 147/100 H 02/19/21 13:11 Pulse Ox 97 02/19/21 11:50 Laboratory Results - last 24 hr 02/18/21 02/18/21 02/19/21 12:45 12:45 06:30 WBC RBC Hgb Hct MCV MCH MCHC RDW Plt Count MPV Immature Gran % Neutrophils % Lymphocytes % Monocytes % Eosinophils % Basophils % Nucleated RBC % Absolute Neutrophils Absolute Lymphocytes Absolute Monocytes Absolute Eosinophils Absolute Basophils Sodium 138 Potassium 4.1 Chloride 103 Carbon Dioxide 27.5 Anion Gap 7.5 BUN 9 Creatinine 1.0 Estimated GFR/1.73 m2 59.96 Glucose 88 Calcium 8.9 Magnesium 1.7 L Stool Campylobacter PCR Negative Stl C.difficile Tox PCR Negative Stool Salmonella PCR Negative Stool Shigella PCR Negative Shiga Toxin (PCR) Negative 02/19/21 06:30 WBC 5.50 RBC 3.60 L Hgb 8.4 L Hct 28.2 L MCV 78.3 L MCH 23.3 L MCHC 29.8 L RDW 16.6 H Plt Count 254 MPV 12.3 H Immature Gran % 0.4 Neutrophils % 58.9 Lymphocytes % 29.6 Monocytes % 9.3 Eosinophils % 1.6 Basophils % 0.2 Nucleated RBC % 0 Absolute Neutrophils 3.24 Absolute Lymphocytes 1.63 Absolute Monocytes 0.51 Absolute Eosinophils 0.09 Absolute Basophils 0.01 Sodium Potassium Chloride Carbon Dioxide Anion Gap BUN Creatinine Estimated GFR/1.73 m2 Glucose Calcium Magnesium Stool Campylobacter PCR Stl C.difficile Tox PCR Stool Salmonella PCR Stool Shigella PCR Shiga Toxin (PCR)
[2021-02-19] MEDS: Docusate Sodium 100 MG CAP PO (14:21)
[2021-02-19] MEDS: levoFLOXacin 750 MG/150 ML BAG 100 MG IVPB (14:21)
[2021-02-19] MEDS: Cetirizine 10 MG TAB PO (14:22)
[2021-02-19 15:50] LABS: D-Dimer 1360 ng/mlFEU (<500)
--- NOTE | 2021-02-19 15:52 | DI.VRAD_ITS ---
PROCEDURE INFORMATION: Exam: US Retroperitoneal; Complete; Kidneys and Bladder Exam date and time: 02/19/2021 2:19 PM Age: 45 years old Clinical indication: Abnormal findings; Abnormal lab test; Abnormal kidney function lab tests TECHNIQUE: Imaging protocol: Real-time ultrasound of the retroperitoneum with image documentation. Complete exam focused on the kidneys and bladder. COMPARISON: CT ABDOMEN PELVIS WO 02/17/2021 10:27 AM FINDINGS: Right kidney: Right kidney measures 9.2 x 5.7 x 5.6 cm. Anechoic cysts right kidney. Largest measures approximately 5 cm. No hydronephrosis. Left kidney: Anechoic cysts left kidney. Largest measures approximately 2 cm. Left kidney measures 12.1 x 6.3 x 5.3 cm. Urinary bladder: Prevoid bladder volume 221 mL. No definite ureteral jets identified. Patient unable to ambulate to void bladder. No postvoid residual obtained. IMPRESSION: 1. Bilateral polycystic kidneys without evidence of hydronephrosis Dictated and Authenticated by: Cheryl Up MD. [facility] Barrie Carrasco MD
--- NOTE | 2021-02-19 16:00 | DI.VRAD_ITS ---
PROCEDURE INFORMATION: Exam: XR Chest Exam date and time: 02/19/2021 2:48 PM Age: 45 years old Clinical indication: Other: Follow up aspiration pneumonitis TECHNIQUE: Imaging protocol: XR of the chest. Views: 1 view. COMPARISON: CR XR CHEST 2V PA LATERAL 02/16/2021 6:26 PM FINDINGS: Tubes, catheters and devices: Images are degraded by motion. Lungs: Unremarkable. No consolidation. Pleural spaces: Scarring left costophrenic angle. No pleural effusion. No pneumothorax. Heart/Mediastinum: Cardiomegaly. Bones/joints: Sternotomy. Resection of several left lower lateral ribs. Left lateral screw fixation lower thoracic and upper lumbar spine. IMPRESSION: 1. No acute findings and no appreciable change from 02/08/2021 Dictated and Authenticated by: Cheryl Up MD. [facility] Barrie Carras[facility] MD
[2021-02-19] MEDS: Ondansetron 4 MG/2 ML VIAL IVP (17:17)
[2021-02-19] MEDS: Normal Saline Flush 10 ML SYR IVP (17:18)
--- NOTE | 2021-02-19 17:45 | DI.CT_ITS ---
Exam(s) CT CHEST PE CTA EXAM: CT CHEST PE CTA CLINICAL HISTORY: hypoxemia, tachycardia. TECHNIQUE: Imaging Protocol: Axial CT angiography was performed with multi-slice acquisition and mu lti-planar and/or 3D reconstructions. CONTRAST MATERIAL: Intravenous: Omnipaque 350 Contrast volume:structured data in ml COMPARISON: CT CT ABDOMEN PELVIS WO from 02/17/2021 FINDINGS: CT angiography of the chest was performed with intravenous infusion of 71 cc of Omnipaque 350. The examination is somewhat motion limited. There is moderate cardiomegaly. The lungs are predominantly clear with some dependent atelectasis.. No pleural effusion. Tracheobron chial tree appears intact. No evidence of pulmonary embolic disease although emboli in small peripheral vessels might not be vis ible secondary to motion artifact.. Thoracic aorta is of normal diameter, no thoracic aortic aneurys m or dissection, major branch vessels appear intact. No mediastinal or hilar adenopathy. Images obtained through the upper abdomen show unremarkable appearance of the visualized portions of the liver except for probable hepatic steatosis and suspected left lobe hepatic cyst. Follow-up hepa tic ultrasound suggested. Thoracic spinal fixation noted. IMPRESSION: No evidence of pulmonary embolic disease on this somewhat limited study. RADIATION DOSE DELIVERED: 390.57mGy.cm Total DLP 390.57mGy.cm Total DLP CTDIvol DATA REPOSITORY: All CT scans at this facility are submitted to the National Radiology Data Registry (NRDR) Dose Index Registry (DIR) with the [employer] ([employer]). RADIATION OPTIMIZATION: All CT scans at this facility use at least one of these dose optimization te chniques: automated exposure control; mA and/or kV adjustment per patient size (includes targeted exa ms where dose is matched to clinical indication); or iterative reconstruction.
[2021-02-19] MEDS: Carvedilol 25 MG TAB PO (19:33)
[2021-02-19] MEDS: Clindamycin 150 MG CAP 450 MG PO (19:33)
[2021-02-19] MEDS: Magnesium Lactate-SR 84 MG TABCR PO (19:33)
--- NOTE | 2021-02-19 21:27 | NUR.NOTE ---
Nursing Note: Patient arrived to [facility] unit at 2054. Patient is alert and oriented x4, denies any pain, does have spasms from cerebral palsy. LSC, dim in bases, positive bowel sounds, last BM today. Has IV in left AC. Belongings moved with patient.
[2021-02-19] MEDS: Omnipaque 350 MG/ML 100 ML BTL IJ (21:57)
[2021-02-19] MEDS: Normal Saline - Diluent 50 ML VIAL IV (21:58)
--- NOTE | 2021-02-19 22:09 | DI.VRAD_ITS ---
PROCEDURE INFORMATION: Exam: CTA Chest With Contrast Exam date and time: 02/19/2021 5:48 PM Age: 45 years old Clinical indication: Other: Hypoxemia, tachycardia; Prior surgery TECHNIQUE: Imaging protocol: Computed tomographic angiography of the chest with contrast. 3D rendering (Not supervised by radiologist): MIP and/or 3D reconstructed images were created by the technologist. COMPARISON: CR XR CHEST 1V IN DI DEPT 02/19/2021 3:42 PM FINDINGS: Limitations: Respiratory motion. Pulmonary arteries: There is no convincing evidence of a pulmonary embolus, although, small distal subsegmental emboli especially in lung bases cannot be excluded entirely given the respiratory motion. Aorta: There is no aortic aneurysm or dissection. Lungs: There are mild dependent infiltrates in both lungs consistent with atelectasis. There is no lobar consolidation. The central airway is grossly clear. Pleural spaces: Unremarkable. No pneumothorax. No pleural effusion. Heart: There is moderate multichamber cardiomegaly but no pericardial effusion or overt congestive heart failure. Lymph nodes: No pathologic lymphadenopathy identified. Liver: Hepatic steatosis. There are a few low-density lesions in the liver which are not well assessed here because of streak artifact. The dominant lesion in the lateral segment left hepatic lobe is fluid density (Hounsfield units: 4.6) consistent with a hepatic cyst or biliary hamartoma. The other lesions are too small to characterize on this exam. Bones/joints: There is osseous demineralization with a rotatory levo convexity scoliosis of lumbar spine and extensive postoperative findings within the thoracic spine with fusion hardware noted. There are remote fracture deformities of the ribs bilaterally. Soft tissues: Unremarkable. IMPRESSION: 1. Limited by respiratory motion. 2. No definite pulmonary embolus, although, small distal subsegmental emboli especially within the lung bases cannot be excluded reliably given the motion. 3. Moderate multichamber cardiomegaly. 4. Hepatic steatosis with low-density liver lesions as detailed above. 5. Osseous demineralization with a rotatory levo convexity scoliosis of the thoracic spine and extensive postoperative findings with fusion hardware noted. 6. Remote bilateral rib fracture deformities. Dictated and Authenticated by: Pernell Christie MD. Ordering:[facility] Barrie Carrasco MD
[2021-02-19] MEDS: Enoxaparin 40 MG/0.4 ML SYR SC (22:36)
[2021-02-20] VITALS (7 sets, daily range): BP systolic 162–173; BP diastolic 97–102; PULSE 84–108; RESP 16–18; TEMP 36.4–37; O2SAT 93–94
[2021-02-20] MEDS: LORazepam 1 MG TAB PO ×3 (01:28→17:47)
[2021-02-20 07:33] LABS: Abs Immature Grans 0.01 10^3/uL (0.0-0.06); Absolute Basophil Count 0.01 10^3/uL (0.0-0.2); Absolute Eosinophil Count 0.08 10^3/uL (0.0-0.7); Absolute Monocyte Count 0.42 10^3/uL (0.1-0.8); Absolute Neutrophil Count 2.68 10^3/uL (1.2-6.7); Basophils % 0.2; Eosinophils % 1.8; HCT 28.3 % (36.0-46.0); HGB 8.4 g/dL (11.2-15.7); Immature Grans % 0.2; Lymphocytes % 27.3; MCHC 29.7 % (32.0-36.0); MCV 77.5 fL (80-95); MPV 12.3 fL (8.0-11.0); Monocytes % 9.5; Nucleated RBC 0 %; Platelet Count 248 10^3/uL (130-400); RBC 3.65 10^6/uL (3.93-5.22); RDW-SD 47.3 fL
[2021-02-20 07:55] LABS: Anion Gap 10.7 mmol/L (3-11); BUN 7 mg/dL (7-18); C-Reactive Protein 0.32 mg/dL (0.0-0.3); CO2 26.3 mmol/L (21.0-32.0); Calcium 9.1 mg/dL (8.5-10.1); Chloride 102 mmol/L (98-107); Estimated GFR 59.96 (mL/min/1.73m2); Glucose 75 mg/dL (74-106); Potassium 3.7 mmol/L (3.5-5.1); Sodium 139 mmol/L (136-145)
[2021-02-20 08:04] LABS: Magnesium 1.9 mg/dL (1.8-2.4)
[2021-02-20] MEDS: Magnesium Lactate-SR 84 MG TABCR PO (08:51)
[2021-02-20] MEDS: Folic Acid 1 MG TAB PO (08:51)
[2021-02-20] MEDS: Clindamycin 150 MG CAP 450 MG PO ×3 (08:51→17:47)
[2021-02-20] MEDS: Baclofen 10 MG TAB 40 MG PO ×2 (08:51→15:12)
[2021-02-20] MEDS: Cyanocobalamin 500 MCG TAB 1000 MCG PO (08:51)
[2021-02-20] MEDS: Citalopram 20 MG TAB PO (08:51)
[2021-02-20] MEDS: Cetirizine 10 MG TAB PO (08:52)
[2021-02-20] MEDS: Ferrous Sulfate 325 MG TAB PO (08:52)
[2021-02-20] MEDS: Pantoprazole 40 MG TABCR PO (08:52)
[2021-02-20] MEDS: Carvedilol 25 MG TAB PO (08:52)
[2021-02-20] MEDS: Chlorthalidone 25 MG TAB PO (08:52)
[2021-02-20] MEDS: Potassium Chloride 20 MEQ TABCR PO (08:52)
[2021-02-20] MEDS: Lisinopril 10 MG TAB 20 MG PO (08:52)
[2021-02-20] MEDS: Nystatin POWDER 60 GM JAR TP (08:53)
[2021-02-20 08:54] LABS: Procalcitonin < 0.1 ng/mL
[2021-02-20] MEDS: Methocarbamol 750 MG TAB PO (09:07)
--- NOTE | 2021-02-20 09:17 | PT.INTREAT ---
PT Notes Visit Reasons: Lethargy, YOGESH, Dehydration Inpatient Physical Therapy Treatment Note [facility] Date: 02/20/21 PRECAUTIONS:[] SUBJECTIVE: Pt reports feeling better today. OBJECTIVE: Sit-supine: Modx1 Sit-stand: SBA/CGA Stand-sit: SBA GAIT Assistive Device: FWW Weight bearing: Full Assist: CGA Distance: Approx 15 ft Pt reports she could have walked longer but the walker is high for her and it was more her arms that were tired then her legs. Unfortunately the walker is as low as it will go. Pt received PROM of the L LE with single knee to chest, ITB/piriformis stretching, gastroc stretching, Quad, and hamstring stretching. ASSESSMENT: Pt ROM was tolerated very well today. PLAN: Cont as per PT POC. TREATMENT CODE/TIME: 8:45-9 (15) MT
--- NOTE | 2021-02-20 16:47 | W.PM.DS.N ---
Date of service: 02/20/21 Time of Service: 16:47 DS: Diagnosis Discharge Diagnosis (1) Aspiration pneumonia: Start date: 02/20/21 Start time: 16:47 Status: Acute Asessment and Plan: Found to have RLL infiltrate on imaging on 02/17 on clindamycin TID maintaining o2 sats in the low to mid 90's per RT, she does not ambulate far due to her health conditions. She is ready to go home and therefore being discharged home on clindamycin po. She should follow up with her PCP in 1 week Will given clinidamycin for another 7 days given this is not the first choice for antibiotics in aspiration and if she needs longer will defer to her PCP (2) Sinus tachycardia: Start date: 02/20/21 Start time: 16:54 Status: Resolved Asessment and Plan: Heart rate has been normal all day, unclear what was driving these elevated HR. It could have been infection, autonomic dysfunction disorder in setting of infection, however she has resolved. (3) YOGESH (acute kidney injury): Start date: 02/20/21 Start time: 17:18 Status: Resolved Asessment and Plan: With IVF resolved. (4) Hypertension: Start date: 02/20/21 Start time: 17:18 Status: Acute Asessment and Plan: Continue lisinopril, and chlorilithodione. Coreg increased to 25 mg BID (5) Ambulatory dysfunction: Start date: 02/20/21 Start time: 17:19 Status: Chronic Asessment and Plan: She lives at [facility]. She is at her baseline, she does not ambulate far. History of cerebral palsy with spasticity, obesity HFPEF, spinal infusions, anxiety, CKD. above discussed with Dr. Sood Discharge Plan Disposition Patient Disposition: HOME Condition: Good Discharge Details Reason For Visit: Lethargy, YOGESH, Dehydration Admit Date/Time: 02/18/21 18:12 Admit Provider: Danilo Sood Attending Provider: Danilo Sood Hospital Course Hospital Course: 45 yr. female with PMH of cerebral palsy with spasticity, obesity, HFPEF, HTN, multiple spinal fusions, anxiety, and CKD who was initially admitted from [facility] ED for lightheadedness and diarrhea. Labs in the ED revealed elevated YOGESH, anemia. Imaging revealed RLL pneumonia, due to severe pcn allergy she was treated with levaquin and admitted for further management. She was transitioned to po clindamycin which she has been tolerating well. Stool was found to be negative. YOGESH was treated with IVF, and resolved. She did require oxygen at one point due to pneumonia however today she did exercise oximetry and maintained saturation in the mid 90's with RT. Her HR was high she had an echo ef was 64% LV diastolic function abnormal, right vent normal. She worked with PT, she states she is at her baseline, she is no longer requiring oxygen, her renal function is at its baseline, she is back on her bp medication and she feels well therefore she is being discharged home. She will be on a 7 day course clindamycin with a probiotic and follow up with PCP in 1 week to decide if she should continue another week or if she has completed the course. Her primary is out of state. She denies Cp, SOB, N/V/D Home Meds and New Rx's Prescriptions: New carvedilol 25 mg Tablet 25 mg PO BID Qty: 60 RF: 0 clindamycin HCl 150 mg Capsule 450 mg PO TID Qty: 21 RF: 0 chlorthalidone 25 mg Tablet 25 mg PO DAILY Qty: 30 RF: 0 ferrous sulfate 325 mg (65 mg iron) Tablet 325 mg PO BID Qty: 60 RF: 0 folic acid 1 mg Tablet 1 mg PO DAILY Qty: 30 RF: 0 Bio-K plus 50 billion cell capsule,delayed release(DR/EC) 1 cap PO DAILY Qty: 30 RF: 0 Continued lisinopril 20 mg Tablet 10 mg PO DAILY RF: 0 baclofen 20 mg Tablet 40 mg PO TID RF: 0 methocarbamol 750 mg Tablet 750 mg PO QID PRNRF: 0 citalopram 20 mg Tablet 20 mg PO DAILY RF: 0 cyclobenzaprine 5 mg Tablet 5 mg PO QID PRNRF: 0 ondansetron HCl [Zofran] 4 mg Tablet 4 mg PO PRNRF: 0 Discharge Instructions Instructions: Aspiration Pneumonia (DC) Additional Instructions: Follow up with your PCP in 1 week Take antibiotics 3 times a day Follow up with PT Referrals: [facility] [Other] - 03/03/21 (pt has an appt on March [address] Meet Flores) [facility] [Provider Group] (CP with ambulatory dysfunction, eval and treat) Activity:: Activity as Tolerated Equipment/Supplies:: No Equipment Needed Diet:: Heart healthy Discharge Orders Discharge Orders: Discharge Order (Routine); Ordered 02/20/21 Ordered By: Naomie Dey DS: Summary Time Spent with Patient providing and/or coordinating discharge services: Greater than 30 minutes Status at Discharge Functional status at discharge: uses cane/walker Overall status at discharge: patient is back to baseline Mental Status: mental status grossly normal Speech and Movement: other Mood: congruent mood Affect: normal affect Exam Narrative Exam Narrative: Middle age female sitting up in a chair. Not dyspneic. She has spasms of her limbs Lungs: diminished breath sounds at the bases but otherwise clear Heart: regular rate and rhythm Abdomen: soft and nontender Lower extremities: trace of edema over lower tibia but improved. Psych Mental Status: mental status grossly normal Speech and Movement: other Mood: congruent mood Affect: normal affect DS: Data Vitals/I&O Vitals and I&O: Vital Signs Temperature 37 C 02/20/21 08:57 Temperature Source Skin 02/20/21 08:57 Pulse 97 H 02/20/21 08:57 Pulse Rhythm Regular 02/20/21 09:09 Pulse 101 H 02/19/21 19:41 Respiratory Rate 18 02/20/21 08:57 Respiratory Effort Non-Labored 02/20/21 09:09 Respiratory Depth Normal 02/20/21 09:09 Respiratory Pattern Normal 02/20/21 09:09 Blood Pressure 170/97 H 02/20/21 08:57 Blood Pressure Mean 121 02/19/21 19:41 Blood Pressure Position Supine 02/16/21 20:55 Pulse Oximetry 93 02/20/21 08:57 Oxygen Delivery Method Room Air 02/20/21 08:57 Oxygen Flow Rate 0 02/20/21 08:57 Fraction of Inspired Oxygen (FIO2) 21 02/17/21 09:44 Pain Level 0 02/20/21 08:57 Comment 02/18/21 16:40 Intake & Output 02/19/21 02/20/21 02/20/21 23:59 11:59 23:59 Intake Total 1370 / 2610 760 / 760 Output Total 1400 / 3420 600 / 600 Balance -30 / -810 160 / 160 Intake: IV 1009 Oral 360 / 600 760 / 760 Output: Urine 1400 / 3420 600 / 600 Other: Urine Color Pale Pale Yellow Urine Appearance Clear Clear Urine Odor Normal Normal Comment Pt was incont in bed, Municipal Clerk help her up to the commode reports having a large void in toilet Stool Occult Blood Negative Negative Stool Characteristics Soft Formed Hard Black Voiding Methods Bedside Commode Bedside Commode Incontinent Data Completed and Pending Completed studies during hospitalization [Text1]: Exam(s) XR CHEST 2V PA LATERAL EXAM: XR CHEST 2V PA LATERAL CLINICAL HISTORY: dizziness. TECHNIQUE: 2D digital imaging was performed. COMPARISON: No exams were available for comparison FINDINGS: There are multiple screws in the posterior elements of multiple thoracic vertebrae. There is also fusion hardware in the lumbar spine which is not completely included in the field of view. Scoliosis Mild cardiomegaly. Mediastinum unremarkable. Mildly elevated right hemidiaphragm. No infiltrates evident in the left lung. Increased markings are noted in the right lower lobe behind the heart shadow, possibly significant. There appears to be surgical absence of the lateral aspect of the left 6 rib. IMPRESSION: Slightly increased markings in right lower lobe.Remainder of the lung villa appear clear with the exception of some pleural blunting on the left side where there has been prior surgery including resection of the lateral aspect of the left 6 rib. Scoliosis. Spinal hardware. EXAM: Comprehensive 2D, Doppler, and color-flow Echocardiogram Patient Location: In-Patient Room/Bed: [address]u [address] Supervisor: Gisele Bethea RDCS (AE) Indications: HTN, HFPEF. CEREBRAL PALSY Other Information Study Quality: Fair Conclusion Left Ventricle : The left ventricle is normal size. The left ventricular ejection fraction is within the normal range. There is normal left ventricular wall thickness. There is normal LV segmental wall motion. The left ventricular diastolic function is abnormal. LVEF is 64%. Right Ventricle : Right ventricle is grossly normal in size. Right ventricular systolic function is grossly normal. Atria : The left atrium size is normal. The right atrium size is normal. Valves: There are no hemodynamically significant valvular lesions. Great Vessels : The aortic root is normal in size. The ascending aorta is mildly dilated. Due to patient body habitus sub costal imaging was not able to be obtained. Wall motion Exam(s) US EXTREMITY VENOUS BI EXAM: US EXTREMITY VENOUS BI CLINICAL HISTORY: concern for DVT (asymmetric edema) TECHNIQUE: Grayscale, color, and doppler imaging of the deep venous system of both lower extremities was performed. COMPARISON: US US ECHOCARDIOGRAM from 02/17/2021 FINDINGS: There is no evidence of intraluminal thrombus and there is normal compression and augmentation demonstrated within the common femoral veins, femoral veins, and popliteal veins of both lower extremities. In the calves the interrogated veins also exhibit normal compression/ augmentation properties. The greater saphenous veins also appear patent as do the saphenofemoral junctions bilaterally.. IMPRESSION: 1. No ultrasound evidence of DVT in either lower extremity. Exam(s) US EXTREMITY VENOUS BI EXAM: US EXTREMITY VENOUS BI CLINICAL HISTORY: concern for DVT (asymmetric edema) TECHNIQUE: Grayscale, color, and doppler imaging of the deep venous system of both lower extremities was performed. COMPARISON: US US ECHOCARDIOGRAM from 02/17/2021 FINDINGS: There is no evidence of intraluminal thrombus and there is normal compression and augmentation demonstrated within the common femoral veins, femoral veins, and popliteal veins of both lower extremities. In the calves the interrogated veins also exhibit normal compression/ augmentation properties. The greater saphenous veins also appear patent as do the saphenofemoral junctions bilaterally.. IMPRESSION: 1. No ultrasound evidence of DVT in either lower extremity. : 1975Age: 45 Exam(s) a CT:CT abdomen & pelvis wo Exam(s) CT ABDOMEN PELVIS WO EXAM: CT ABDOMEN PELVIS WO CLINICAL HISTORY: abdominal distension and diarrhea. TECHNIQUE: Imaging Protocol: Axial computed tomography images with coronal and sagittal reformatted images were created and reviewed CONTRAST MATERIAL: Intravenous: none Oral: Yes COMPARISON: No exams were available for comparison FINDINGS: Images are degraded by motion artifact VISUALIZED LUNG BASES: Mild benign-appearing increased markings in the lung bases. No pleural effusions.. Scoliosis and multilevel hardware in the spinal column noted. ABDOMEN: There is no ascites. LIVER: Multiple hypodensities are noted in both hepatic lobes, larger and more prominent in the left hepatic lobe. These are difficult to assess without IV contrast but may represent benign cysts. GALLBLADDER/BILIARY: Gallbladder surgically absent. CBD is not obviously dilated. PANCREAS: No evidence of obvious pancreatic mass nor obvious dilatation of the pancreatic duct. SPLEEN: Spleen is not enlarged. No obvious intrasplenic lesions. ADRENALS: There are no significant adrenal masses. KIDNEYS:There are multiple cysts in both kidneys noted. May be an element of polycystic kidney disease here. No renal calculi. No obvious hydronephrosis. Doubtful for solid masses.. ABDOMINAL AORTA: Abdominal aorta is not enlarged. LYMPH NODES: There is no retroperitoneal nor paraaortic adenopathy. ABDOMINAL WALL: No evidence of significant anterior abdominal wall hernia. GI: There is no evidence of bowel obstruction, free air, nor abscess. PELVIS: LYMPH NODES: There is no intrapelvic nor inguinal adenopathy. GI: No evidence of obvious appendicitisno evidence of sigmoid diverticulitis. URINARY BLADDER: Urinary bladder is somewhat distended. No radiopaque calculi nor obvious masses therein. REPRODUCTIVE: Uterus and adnexal regions are age-appropriate OSSEOUS: Chronic deformities and spinal surgeries and scoliosis. No evidence of obvious decubitus ulcer nor osteomyelitis. Ischial tuberosities appear intact. IMPRESSION: 1. Study somewhat degraded by motion artifact. 2. Multiple hypodensities in both kidneys as well as the liver may imply the presence of polycystic kidney disease. Given the quality of the study and the fact that there was no IV contrast I recommend confirmation of these findings are cystic with ultrasound examination. 3. Gallbladder surgically absent. There is no obvious dilatation of the biliary tree. Chronic bone deformities and spinal surgeries. No evidence of decubitus ulcer in nor evidence of osteomyelitis. Exam(s) US RENAL EXAM: US RENAL CLINICAL HISTORY: YOGESH; polycystic kidneys TECHNIQUE: Ultrasound performed using standard protocol. COMPARISON: CT CT ABDOMEN PELVIS WO from 02/17/2021 FINDINGS: The patient reportedly has history of polycystic kidney disease. There are multiple bilateral renal cysts noted. Largest on the right measures about 5 cm in diameter and largest on left measures about 2 cm in diameter. There is no gross hydronephrosis. No nephrolithiasis is identified. Urinary bladder contains 221 cc of urine. The patient was unable to void. IMPRESSION: Limited study, consistent with prior diagnosis of polycystic kidney disease. No evidence of hydronephrosis at this time. Right kidney measures 9.2 x 5.7 x 5.6 cm and left kidney measures 12.1 x 6.3 x 5.3 cm. Exam(s) a CT:CT chest PE CTA Exam(s) CT CHEST PE CTA EXAM: CT CHEST PE CTA CLINICAL HISTORY: hypoxemia, tachycardia. TECHNIQUE: Imaging Protocol: Axial CT angiography was performed with multi-slice acquisition and multi-planar and/or 3D reconstructions. CONTRAST MATERIAL: Intravenous: Omnipaque 350 Contrast volume:structured data in ml COMPARISON: CT CT ABDOMEN PELVIS WO from 02/17/2021 FINDINGS: CT angiography of the chest was performed with intravenous infusion of 71 cc of Omnipaque 350. The examination is somewhat motion limited. There is moderate cardiomegaly. The lungs are predominantly clear with some dependent atelectasis.. No pleural effusion. Tracheobronchial tree appears intact. No evidence of pulmonary embolic disease although emboli in small peripheral vessels might not be visible secondary to motion artifact.. Thoracic aorta is of normal diameter, no thoracic aortic aneurysm or dissection, major branch vessels appear intact. No mediastinal or hilar adenopathy. Images obtained through the upper abdomen show unremarkable appearance of the visualized portions of the liver except for probable hepatic steatosis and suspected left lobe hepatic cyst. Follow-up hepatic ultrasound suggested. Thoracic spinal fixation noted. IMPRESSION: No evidence of pulmonary embolic disease on this somewhat limited study. Labs on day of discharge: Labs from last 24 hours 02/20/21 02/20/21 02/20/21 06:35 06:35 06:35 WBC 4.40 RBC 3.65 L Hgb 8.4 L Hct 28.3 L MCV 77.5 L MCH 23.0 L MCHC 29.7 L RDW 17.0 H Plt Count 248 MPV 12.3 H Immature Gran % 0.2 Neutrophils % 61.0 Lymphocytes % 27.3 Monocytes % 9.5 Eosinophils % 1.8 Basophils % 0.2 Nucleated RBC % 0 Absolute Neutrophils 2.68 Absolute Lymphocytes 1.20 Absolute Monocytes 0.42 Absolute Eosinophils 0.08 Absolute Basophils 0.01 Sodium 139 Potassium 3.7 Chloride 102 Carbon Dioxide 26.3 Anion Gap 10.7 BUN 7 Creatinine 1.0 Estimated GFR/1.73 m2 59.96 Glucose 75 Calcium 9.1 Magnesium C-Reactive Protein 0.32 H Procalcitonin < 0.1 02/20/21 06:35 WBC RBC Hgb Hct MCV MCH MCHC RDW Plt Count MPV Immature Gran % Neutrophils % Lymphocytes % Monocytes % Eosinophils % Basophils % Nucleated RBC % Absolute Neutrophils Absolute Lymphocytes Absolute Monocytes Absolute Eosinophils Absolute Basophils Sodium Potassium Chloride Carbon Dioxide Anion Gap BUN Creatinine Estimated GFR/1.73 m2 Glucose Calcium Magnesium 1.9 C-Reactive Protein Procalcitonin Preliminary micro results at discharge 02/17/21 14:50 Blood Culture - Preliminary Blood NO GROWTH 48 HOURS 02/17/21 14:31 Blood Culture - Preliminary Blood NO GROWTH 48 HOURS [facility] Medical History Anxiety disorder Cerebral palsy Chronic anemia Heart failure with preserved ejection fraction Osteoarthritis of right hip joint due to dysplasia Polycystic ovaries Rhabdomyolysis Scoliosis (and kyphoscoliosis), idiopathic Toxic metabolic encephalopathy (~11/26/20) Surgical History S/P spinal fusion Status post Girdlestone procedure Social History Smoking/Tobacco Use Status: Never Smoking risk assessment performed?: Yes Alcohol Intake: never Substance use type: does not use
[2021-02-20] MEDS: Docusate Sodium 100 MG CAP PO (17:47)
--- NOTE | 2021-02-21 18:00 | INDS_ITS ---
Date of service: 02/21/21 PT Notes Visit Reasons: Lethargy, YOGESH, Dehydration Inpatient Physical Therapy Discharge Summary Date: 02/21/21 Referring Doctor: Dr. Hollins PT Orders: PT CONSULT: limited ability to ambulate Precautions: fall, standard Patient Profile/Admitting Diagnosis: Patient admitted for medical management of dehydration, chronic anemia, and tachycardia in the presence of spastic cerebral palsy. PMHX: Medical History (Updated 02/17/21 @ 01:19 by Danilo Sood) Anxiety disorder Cerebral palsy Chronic anemia Heart failure with preserved ejection fraction Osteoarthritis of right hip joint due to dysplasia Polycystic ovaries Rhabdomyolysis Scoliosis (and kyphoscoliosis), idiopathic Toxic metabolic encephalopathy (~11/26/20) Surgical History (Updated 02/17/21 @ 01:19 by Danilo Sood) S/P spinal fusion Status post Girdlestone procedure Social History/Home Situation: Patient currently living in a hotel, which is handicap accessible. She had stable housing up until that point, but was unable to secure handicap accessible housing after her apartment building sold. She no longer drives. Has support from her ex- and their children, who she assists with educating. 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 She has had extensive PT in the past, although none for the past year. States that she has a series of home exercises that she completes daily, primarily to work on her spasticity. She also uses resistance bands for upper extremity strengthening, and walks laps in her hotel room for exercise. She primarily walks with a 4 WW, although has a wheelchair that she uses for community excursions or if she needs to carry things. Equipment Owned/DME: 4WW. Manual wheelchair. Shower chair. Currently having meals delivered. Subjective: NT. Please see most recent [employer]ORSEBACK [employer]ING INSTRU[employer] notes. Objective: General Observation: NT. Please see most recent HORSEBACK [employer]IDING INSTRUCTOR notes. Mental Status: NT. Please see most recent HORSEBACK RIDING INSTRUCTOR notes. Pain: NT. Please see most recent HORSEBACK [employer]IDING INSTRUCTOR notes. Vital Signs: NT. Please see most recent HORSEBACK RIDING INSTRUCTOR notes. ROM: Right Upper Extremity: Shoulder flexion allows 150 degrees actively. Elbow motion WFL. Patient rests in partial management psychologist, but is able to actively extend digits. Left Upper Extremity: Passive shoulder flexion allows 150 degrees, although with significant spasticity. Elbow flexion limited by IV in antecubital fossa. Right Lower Extremity: Hip flexion allows 80 degrees. AB to 10 degrees. Hamstring length via SLR allows 45 degrees. Knee flexion to 70 degrees, limited by spasticity. Ankle DF to neutral. Left Lower Extremity: Hip flexion allows 30 degrees in supine, 80 degrees in sitting position. Knee flexion allows 45 degrees in supine. Once in sitting, she has continued LLE spasticity preventing knee flexion. She tolerates approx 45 degrees knee flexion by end of session. Strength: Right Upper Extremity: Shoulder flexion 3/5 or greater. Elbow and wrist motions 3/5 or greater. Left Upper Extremity: Shoulder flexion 2/5. Elbow flexion 3/5 or greater. Right Lower Extremity: Quads 3/5, but functionally unable to perform SLR on the right. Hip adduction 3 -/5. Left Lower Extremity: Quads 3/5 or greater. Hip AB/adduction 3 -/5. Bed Mobility/Transfers: Supine?sit: CGA Sit?stand: CGA Stand?sit: CGA Gait: Patient ambulates 15 feet with FWW and CGA. Balance: Static Sitting: Fair Dynamic Sitting: Fair Static Standing: Fair Dynamic Standing: Fair Assessment: Patient is a 45 year old female referred to physical therapy [facility] with the diagnosis of dehydration, chronic anemia, tachycardia. Patient presents with clinical signs and symptoms consistent with limitations in mobility related to acute medical issues and complicated by spastic CP. She demonstrates the following impairment level findings: 1. UE/LE spasticity 2. Decreased functional strength of upper extremities and lower extremities 3. Gait impairments 4. Baseline mobility deficits 5. Tremor 6. AM-PAC score indicating 58% impairment Impairments are contributing to the following functional limitations: 1. Unable to independently perform bed mobility 2. Unable to independently ambulate at baseline level of function 3. Poorly controlled spasticity 4. Diminished sitting balance Goals: Goals X1 week 1. Supine-Sit : Supervision NOT MET 2. Sit-Supine: Supervision NOT MET 3. Sit-Stand: Supervision NOT MET 4. Stand-Sit: Supervision NOT MET 5. Bed-Chair: Supervision with FWW NOT MET 6. Chair-Bed: Supervision with FWW NOT MET 7. Gait: Supervision x50 feet with FW W NOT MET DISCHARGE RECOMMENDATIONS: Anticipate patient will be able to discharge home once medically stable TREATMENT CODE/TIME: JENNIFER Bolton, PT, DPT, CLT [facility]
== END 2021-02-20 18:28 | disposition home or self-care (01) | DRG 682 ==
LOC: ER 20:45 → ICU 20:48 → MS 02-20 17:30 → ICU 02-24 12:07
PROVIDERS: Internal Medicine; Admitting Provider Internal Medicine; Emergency Provider Physician Assistant; Visit Provider Internal Medicine
DX: N17.9 Acute kidney failure, unspecified (principal); J69.0 Pneumonitis due to inhalation of food and vomit; G80.1 Spastic diplegic cerebral palsy; I50.30 Unspecified diastolic (congestive) heart failure; I13.0 Hypertensive heart and chronic kidney disease with heart failure and stage 1 through stage 4 chronic kidney disease, or unspecified chronic kidney disease; I95.1 Orthostatic hypotension; E66.9 Obesity, unspecified; F41.9 Anxiety disorder, unspecified; Z98.1 Arthrodesis status; N18.9 Chronic kidney disease, unspecified; E28.2 Polycystic ovarian syndrome; K52.9 Noninfective gastroenteritis and colitis, unspecified; Z20.822 Contact with and (suspected) exposure to COVID-19; E86.0 Dehydration; R00.0 Tachycardia, unspecified; D50.9 Iron deficiency anemia, unspecified; D51.9 Vitamin B12 deficiency anemia, unspecified; S70.312A Abrasion, left thigh, initial encounter; W22.03XA Walked into furniture, initial encounter; Y92.59 Other trade areas as the place of occurrence of the external cause
CPT/HCPCS: 36410; 36415; 51701; 71275; 76770; 80048; 80053; 80307; 84145; 87040; 87493; 87505; 87635; 93005; 94618; 96360; 96361; 97110; 97140; 97162; 97530; 99285; J1650; 71045; 71046; 74176; 80320; 81003; 81015; 82607; 82728; 82746; 83540; 83550; 83605; 83630; 83735; 84443; 84484; 85014; 85018; 85025; 85045; 85379; 86140; 93010; 93306; 93970; 94660; 99219; 99225; 99226; 99233; 99239; 99284; G0378; J1956; J2405; J3475; J3490; Q9967

== ENCOUNTER 2021-02-24 15:20 | Inpatient (IN) | payer MEDICAID, SELFPAY ==
[2021-02-24] VITALS (18 sets, daily range): BP systolic 104–132; BP diastolic 48–78; PULSE 59–87; RESP 6–20; TEMP 35.6–36.5; O2SAT 92–100
--- NOTE | 2021-02-24 | DI.RAD_ITS ---
Exam(s) XR ABDOMEN FLAT UPRIGHT EXAM: XR ABDOMEN FLAT UPRIGHT CLINICAL HISTORY: abd distension TECHNIQUE: COMPARISON: CT CT ABDOMEN PELVIS WO from 02/17/[address] ABDOMEN PELVIS WO from 02/17/2021 FINDINGS: Four views were obtained. There is left convex lumbar scoliosis and there are spinal fixation device s at multiple levels. Lumbar spine appears fused. There is apparent pseudoarthrosis of the right hip. Left hip grossly unremarkable. Bowel gas pattern is within normal limits.. No gross evidence of obstruction. IMPRESSION: No evidence of acute process. RADIATION DOSE DELIVERED: Total DLP
--- NOTE | 2021-02-24 14:46 | DI.RAD_ITS ---
Exam(s) XR HIP LT AP LAT ONLY EXAM: XR HIP LT AP LAT ONLY CLINICAL HISTORY: trauma TECHNIQUE: COMPARISON: No exams were available for comparison FINDINGS: Two views were obtained. There is slight narrowing of the cartilaginous joint space of left hip. Mi ld hypertrophic marginal osteophytes acetabulum and femoral head noted. No other significant bony ab normality seen. IMPRESSION: Mild DJD left hip. RADIATION DOSE DELIVERED: Total DLP
--- NOTE | 2021-02-24 15:24 | ED.GENADUL_ITS ---
Discharge Plan Disposition Patient Disposition: STILL A PATIENT Discharge Details Admit Date/Time: 02/24/21 17:20 Admit Provider: Silviano Vanessa Attending Provider: Silviano Vanessa Primary Care Provider: Unknown,Unknown ED Provider: Elba Alonzo Discharge Data Discharge Date/Time-TO BE ENTERED AT DEPARTURE: 02/24/21 17:55 Medical Decision Making <DUY Tang - Last Filed: 02/25/21 08:07> This is a 45-year-old female, significant past medical history, recent admission to our facility, presenting to the ER for multiple complaints including generalized weakness, feeling lightheaded and/or dizzy, concern for dehydration, hypotension, abdominal bloating, diarrhea that began today, mechanical fall but denies any injury. Clinically she appears disheveled, neurologically intact, occasional rales throughout her lung villa with decreased sounds bilateral bases, abdomen is distended bowel sounds are unremarkable. Differential at this point is wide and includes infectious process, CVA, TIA, dehydration, hypotension, pneumonia, anemia, YOGESH, etc. Will obtain head CT, cardiac work-up, give IV fluids, and reassess. At time of signout, there are no laboratory values back. Differential is still wide and diagnosis unclear. Medical Records Medical records reviewed: Yes I reviewed the patient's medical records. <Elba Alonzo - Last Filed: 02/24/21 21:19> Care assumed from provider (DUY Cordero) Please see their initial HPI, PE, and documentation. Discussed patient details and case and pending workup and disposition. Patient is hemodynamically stable, and oriented. Initial labs resulted which show worsening anemia with hemoglobin of 7.9 hematocrit 27.3 down from 8.4 and 28.3, sodium is 138 potassium is high at 5.5, BUN is 39 creatinine 2.4 GFR is 21 which is also worsened. Magnesium is 2.4 initial troponin is within normal limits less than 0.05. TSH within normal limits. Urinalysis is pending at this time. Will order Kayexelate 15 gm PO, CT Head WO FINDINGS: Brain: Atrophy and chronic white matter ischemic changes, with no evidence of an acute intracranial abnormality. No hemorrhage, mass effect or midline shift. Cerebral ventricles: No ventriculomegaly. Paranasal sinuses: Mild mucosal thickening noted within the left maxillary sinus. Mastoid air cells: Visualized mastoid air cells are well aerated. Bones/joints: No acute fracture. Soft tissues: No acute changes IMPRESSION: 1. Atrophy and chronic white matter ischemic changes, with no evidence of an acute intracranial abnormality. 2. No hemorrhage, mass effect or midline shift. 3. Mild mucosal thickening noted within the left maxillary sinus. Thank you for allowing us to participate in the care of your patient. Dictated and Authenticated by: Андрей Wiggins DO Imaging protocol: XR of the chest. Views: 2 views. COMPARISON: CR XR CHEST 1V IN DI DEPT 02/19/2021 3:42 PM FINDINGS: Lungs: Atelectatic changes noted within both lung bases without focal pneumonia. Pleural spaces: Unremarkable. No pleural effusion. No pneumothorax. Heart/Mediastinum: Unremarkable. No cardiomegaly. Diaphragm: There is nonspecific elevation of the right hemidiaphragm. Bones/joints: Postoperative changes of the thoracolumbar spine. Other findings: Low depth of inspiration imaged. IMPRESSION: 1. Atelectatic changes noted within both lung bases without focal pneumonia. 2. There is nonspecific elevation of the right hemidiaphragm. Thank you for allowing us to participate in the care of your patient. Dictated and Authenticated by: Андрей Wiggins DO Spoke with Dr. Otf navarro for hospitalist tonight regarding patient case and details he verbalizes understanding. I did discuss lab findings with patient and request for admission she is in agreement with plan. On my initial examination patient is somnolent requires vigorous physical stimulation to awaken. She does awaken and then is alert and oriented. Nurse of this is her baseline for this presentation. Patient does endorse diarrhea and dizziness and she does state that she vomited x1. She denies any hematochezia or blood in her stools. Holding orders placed pending admission at this time. HPI <DUY Tang - Last Filed: 02/25/21 08:07> General Mode of arrival: EMS . Date/Time Provider Initiated Documentation: 02/24/21 15:24 . Limitations to Documentation: no limitations . Information obtained by: patient and EMS . HPI Narrative: This is a 45-year-old female, past medical history that includes anxiety, cerebral palsy with spasticity, anemia, heart failure, osteoarthritis, obesity, HTN, multiple spinal fusions, and CKD, presenting via EMS for generalized weakness, feeling dizzy, and a mechanical fall out of her chair. She denies any injury from the fall. Patient was admitted to our facility on 02-16, discharged on 02-20 on p.o. clindamycin for aspiration pneumonia. Per EMS her apartment was very disheveled. Patient denies fever, cough, shortness of breath, abdominal pain, dysuria, numbness, tingling. Patient reports that she feels as though her extremities are at their baseline cerebral palsy spasticity. She reports diarrhea that began today, reports that her abdomen feels slightly more bloated than it typically does, and she is concerned that her blood pressure may be too low and that she may be dehydrated. Related Data Home Medications Medication Instructions Recorded Confirmed baclofen 40 mg PO TID 02/16/21 02/24/21 citalopram 20 mg PO DAILY 02/16/21 02/24/21 cyclobenzaprine 5 mg PO QID PRN 02/16/21 02/24/21 lisinopril 10 mg PO DAILY 02/16/21 02/24/21 methocarbamol 750 mg PO QID PRN 02/16/21 02/24/21 ondansetron HCl [Zofran] 4 mg PO DIRECTED PRN 02/16/21 02/24/21 L. acidophilus,casei,rhamnosus 1 cap PO DAILY #30 cap 02/20/21 02/24/21 [Bio-K plus] carvedilol 25 mg PO BID #60 tab 02/20/21 02/24/21 chlorthalidone 25 mg PO DAILY #30 tab 02/20/21 02/24/21 clindamycin HCl 450 mg PO TID #21 cap 02/20/21 02/24/21 ferrous sulfate 325 mg PO BID #60 tab 02/20/21 02/24/21 folic acid 1 mg PO DAILY #30 tab 02/20/21 02/24/21 Previous Rx's Medication Instructions Recorded L. acidophilus,casei,rhamnosus 1 cap PO DAILY #30 cap 02/20/21 [Bio-K plus] carvedilol 25 mg PO BID #60 tab 02/20/21 chlorthalidone 25 mg PO DAILY #30 tab 02/20/21 clindamycin HCl 450 mg PO TID #21 cap 02/20/21 ferrous sulfate 325 mg PO BID #60 tab 02/20/21 folic acid 1 mg PO DAILY #30 tab 02/20/21 Allergies Allergy/AdvReac Type Severity Reaction Status Date / Time amoxicillin Allergy Unverified 02/24/21 16:11 morphine Allergy Unverified 02/24/21 16:11 bees Allergy Uncoded 02/24/21 16:11 pine nuts Allergy Uncoded 02/24/21 16:11 General ESTEFANY: 3 Review of Systems <DUY Tang - Last Filed: 02/25/21 08:07> Constitutional Constitutional: Denies fatigue, Denies fever(s) and Denies headache(s) Eyes Eyes: Denies change in vision ENT Ears, Nose, Mouth, and Throat: Denies headache(s) and Denies neck pain Cardiovascular Cardiovascular: Denies chest pain and Denies dyspnea Respiratory Respiratory: Denies cough and Denies dyspnea Gastrointestinal Gastrointestinal: Denies abdominal pain, Denies melena, Denies hematochezia, Reports diarrhea, Denies nausea and Denies vomiting Genitourinary Genitourinary: Denies dysuria Musculoskeletal Musculoskeletal: Denies back pain and Denies neck pain Integumentary/Breasts Skin/Breast: Denies rash Neurologic Neurologic: Denies headache(s) and Reports weakness Endocrine Endocrine: Denies fatigue PFSH <DUY Tang - Last Filed: 02/25/21 08:07> Medical History Anxiety disorder Cerebral palsy Chronic anemia Heart failure with preserved ejection fraction Osteoarthritis of right hip joint due to dysplasia Polycystic ovaries Rhabdomyolysis Scoliosis (and kyphoscoliosis), idiopathic Toxic metabolic encephalopathy (~11/26/20) Surgical History S/P spinal fusion Status post Girdlestone procedure Social History Smoking/Tobacco Use Status: Never Smoking risk assessment performed?: Yes Alcohol Intake: never Drug use: Never Substance use type: does not use Do you feel safe at home: Yes Do you feel safe in your relationship?: Yes Exam <DUY Tang - Last Filed: 02/25/21 08:07> Const General: cooperative, comfortable, no acute distress and disheveled Orientation: alert and awake HENGA Head: normal to inspection, normocephalic and atraumatic Mouth: moist mucous membranes abnormal (Slightly dry) Eyes General: appearance normal, both eyes and all related structures Alignment and Position: alignment normal Periorbital: periorbital findings normal Eyelids: eyelids normal Conjunctivae: conjunctivae normal Sclera: sclerae normal Cornea: corneas normal Pupils: PERRL EOM: EOM intact bilaterally Direct ophthalmoscopy: normal light reflex Neck Neck: normal visual inspection, full ROM, trachea midline, supple and nontender Resp Effort & Inspection: normal respiratory effort and able to speak in complete sentences Auscultation: diminished lung sounds bilaterally in the lower lung villa and rales (Scattered, mostly clear with cough) Cardio Rate: regular rate Rhythm: regular rhythm GI Inspection: other (Distended) Palpation: not firm, no guarding, no pulsatile masses and nontender Auscultation: normal bowel sounds Back/Spine/Pelvis Back: no CVA tenderness and No back tenderness Skin General skin exam: no rashes or lesions noted Neuro General: patient alert, patient awake, moves all extremities and no focal motor deficits Cognition: normal cognition Speech: speech normal Sensory Exam: no sensory deficits noted Extrem General: capillary refill normal Other: Patient with baseline limited mobility of all extremities, bilateral hand and feet spasticity. Psych Appearance: grossly normal Mental Status: mental status grossly normal Sign Out <DUY Tang - Last Filed: 02/25/21 08:07> Sign Out Data: Sign Out Comment: Patient presents with multiple complaints, had a recent hospitalization for aspiration pneumonia, YOGESH, anemia. Laboratory values are all pending, she is receiving IV fluid. Last updated by Danilo Patino PA at 02/24/21 16:11
--- NOTE | 2021-02-24 15:30 | DI.RAD_ITS ---
Exam(s) XR CHEST 2V PA LATERAL EXAM: XR CHEST 2V PA LATERAL CLINICAL HISTORY: dizzy,weak TECHNIQUE: COMPARISON: CR,XR XR CHEST 1V IN DI DEPT from 02/19/2021 FINDINGS: Note is again made of fixation devices in the spine and prior section of multiple ribs. There is a p oor inspiration and there may be small areas atelectasis in both lung bases. Upper lung zones appear fairly clear. No gross pleural effusion seen. Heart is mildly enlarged. IMPRESSION: Mild cardiomegaly, probable small areas of atelectasis in lung bases. Small focal consolidation cou ld not be excluded on the basis of this examination. Please correlate clinically. RADIATION DOSE DELIVERED: Total DLP
--- NOTE | 2021-02-24 15:30 | RT.EKG_ITS ---
APPROVED REPORT Exam: Resting ECG Reason for Exam: dizzy Patient Location: E HR:81 bpm ECG Measurements Heart Rate 81 AXIS NM 192 P 54 QRSd 93 QRS -29 QT 389 T 24 QTc 452 Conclusion Sinus rhythm. No ST elevation
[2021-02-24 16:10] LABS: Abs Immature Grans 0.05 10^3/uL (0.0-0.06); Absolute Basophil Count 0.04 10^3/uL (0.0-0.2); Absolute Eosinophil Count 0.06 10^3/uL (0.0-0.7); Absolute Lymphocyte Count 1.34 10^3/uL (1.2-3.4); Absolute Monocyte Count 0.66 10^3/uL (0.1-0.8); Absolute Neutrophil Count 5.21 10^3/uL (1.2-6.7); Basophils % 0.5; Eosinophils % 0.8; HCT 27.3 % (36.0-46.0); HGB 7.9 g/dL (11.2-15.7); Immature Grans % 0.7; Lymphocytes % 18.2; MCH 23.7 pg (27.0-33.0); MCHC 28.9 % (32.0-36.0); MPV 11.8 fL (8.0-11.0); Neutrophils % 70.8; Nucleated RBC 0 %; Platelet Count 268 10^3/uL (130-400); RBC 3.33 10^6/uL (3.93-5.22); RDW 18.8 % (11.7-14.6); RDW-SD 54.9 fL; WBC 7.36 10^3/uL (4.4-10.8)
[2021-02-24 16:30] LABS: ALT 18 U/L (14-59); AST 21 U/L (15-37); Albumin 3.6 g/dL (3.4-5.0); Alkaline Phosphatase 55 U/L (46-116); Anion Gap 7.6 mmol/L (3-11); BUN 39 mg/dL (7-18); CO2 26.4 mmol/L (21.0-32.0); CREATININE 2.4 mg/dL (0.55-1.02); Calcium 8.6 mg/dL (8.5-10.1); Chloride 104 mmol/L (98-107); Estimated GFR 21.83 (mL/min/1.73m2); Glucose 98 mg/dL (74-106); Magnesium 2.4 mg/dL (1.8-2.4); Potassium 5.5 mmol/L (3.5-5.1); Sodium 138 mmol/L (136-145); TSH (W/Ref FT4) 1.83 uIU/mL (0.36-3.74); Total Protein 7.6 g/dL (6.4-8.2); Troponin I < 0.05 ng/mL (<0.06)
--- NOTE | 2021-02-24 16:30 | DI.CT_ITS ---
Exam(s) CT HEAD WO EXAM: CT HEAD WO CLINICAL HISTORY: dizzy. TECHNIQUE: Imaging Protocol: Axial computed tomography images with coronal and sagittal reformatted images were created and reviewed COMPARISON: No exams were available for comparison FINDINGS: There is mild generalized cerebral atrophy, unusual in this age group. No evidence of acute intracranial hemorrhage, mass effect, or midline shift. The orbital structures are unremarkable. The temporal bone structures appear intact. Calvarium: Normal. Visualized Paranasal sinuses/Mastoids: Clear. IMPRESSION: No evidence of acute intracranial process. Mild cerebral atrophy noted which is unusual in this age group. RADIATION DOSE DELIVERED: 773.54mGy.cm Total DLP 773.54mGy.cm Total DLP CTDIvol DATA REPOSITORY: All CT scans at this facility are submitted to the National Radiology Data Registry (NRDR) Dose Index Registry (DIR) with the [employer] ([employer]). RADIATION OPTIMIZATION: All CT scans at this facility use at least one of these dose optimization te chniques: automated exposure control; mA and/or kV adjustment per patient size (includes targeted exa ms where dose is matched to clinical indication); or iterative reconstruction.
--- NOTE | 2021-02-24 16:49 | DI.VRAD_ITS ---
PROCEDURE INFORMATION: Exam: CT Head Without Contrast Exam date and time: 02/24/2021 3:38 PM Age: 45 years old Clinical indication: Dizziness TECHNIQUE: Imaging protocol: Computed tomography of the head without contrast. COMPARISON: No relevant prior studies available. FINDINGS: Brain: Atrophy and chronic white matter ischemic changes, with no evidence of an acute intracranial abnormality. No hemorrhage, mass effect or midline shift. Cerebral ventricles: No ventriculomegaly. Paranasal sinuses: Mild mucosal thickening noted within the left maxillary sinus. Mastoid air cells: Visualized mastoid air cells are well aerated. Bones/joints: No acute fracture. Soft tissues: No acute changes IMPRESSION: 1. Atrophy and chronic white matter ischemic changes, with no evidence of an acute intracranial abnormality. 2. No hemorrhage, mass effect or midline shift. 3. Mild mucosal thickening noted within the left maxillary sinus. Dictated and Authenticated by: Андрей Wiggins MD. Ordering:GLORY Carrasco MD
--- NOTE | 2021-02-24 16:51 | DI.VRAD_ITS ---
PROCEDURE INFORMATION: Exam: XR Chest Exam date and time: 02/24/2021 3:38 PM Age: 45 years old Clinical indication: Other: Low BP; Prior surgery TECHNIQUE: Imaging protocol: XR of the chest. Views: 2 views. COMPARISON: CR XR CHEST 1V IN DI DEPT 02/19/2021 3:42 PM FINDINGS: Lungs: Atelectatic changes noted within both lung bases without focal pneumonia. Pleural spaces: Unremarkable. No pleural effusion. No pneumothorax. Heart/Mediastinum: Unremarkable. No cardiomegaly. Diaphragm: There is nonspecific elevation of the right hemidiaphragm. Bones/joints: Postoperative changes of the thoracolumbar spine. Other findings: Low depth of inspiration imaged. IMPRESSION: 1. Atelectatic changes noted within both lung bases without focal pneumonia. 2. There is nonspecific elevation of the right hemidiaphragm. Dictated and Authenticated by: Андрей Wiggins MD. Ordering:GLORY Carrasco MD
[2021-02-24 17:26] LABS: Bilirubin Negative (Negative); Blood Negative (Negative); Clarity Clear (Clear); Glucose Negative (Negative); Ketones Negative (Negative); Leukocyte Esterase Negative (Negative); Nitrite Negative (Negative); Urobilinogen 0.2 EU/dL (Up TO 0.2); pH 5.5 (5-8)
[2021-02-24] MEDS: Normal Saline 250 ML IV (17:26)
[2021-02-24] MEDS: Normal Saline Flush 10 ML SYR IVP (17:27)
[2021-02-24 17:29] LABS: Anisocytosis 1+; Diff Comment RBC Morph Reviewed; Hypochromasia 1+; Microcytosis 1+
[2021-02-24 17:37] LABS: Bacteria Negative HPF (Negative); C & S Indicated? No; Casts Negative LPF (Negative); Crystals Few Amorphous HPF (Negative); Epithelial Cells Moderate HPF (Negative); Mucus Negative (Negative); RBC Negative HPF (0-2)
[2021-02-24 17:52] LABS: Source Nasal/Nares
[2021-02-24 18:48] LABS: COVID-19 PCR Negative (Negative)
--- NOTE | 2021-02-24 20:05 | HPE_ITS ---
Date of service: 02/24/21 Time of Service: 20:05 Assessment and Plan Assessment and plan (1) Dehydration: Status: Acute Assessment and plan: She will receive intravenous fluids tonight. I will check her labs again in a few hours. She does not need active treatment for the hyperkalemia at this time. I'm going to continue her beta-dione but will hold on her antihypertensives. I'll check an acute abdominal series tonight. (2) Gastroenteritis: Status: Resolved Assessment and plan: She'll be started on clear fluids tonight. Labs will be rechecked. Stool will be checked for C. difficile because of her recent antibiotics. Her antibiotics will be stopped. (3) Chronic anemia: Status: Chronic Assessment and plan: I'm checking some labs. I'm not sure what she has had done to evaluate this anemia in the past. (4) Weakness: Status: Acute Assessment and plan: This should improve with intravenous fluids. (5) YOGESH (acute kidney injury): Status: Resolved Assessment and plan: Her creatinine be rechecked tonight and tomorrow. History of Present Illness History of Present Illness Chief Complaint: weakness and diarrhea Narrative: This 45-year-old female is here because of weakness and diarrhea. She was recently hospitalized for aspiration pneumonia. She was discharged on February 20. She is being treated with clindamycin. She lives by herself and said she took all of her medicines this morning. She developed diarrhea she says about 4 times an hour over the 8 h preceding her come to the hospital. She said her blood pressure was 105/64 at home but got dizzy and fell. She was weak and could not get up. She was able to crawl to a phone and call 911. She has been quite sleepy. She is having some discomfort in her left groin area from her fall. She has a history of cerebral palsy and spasticity. She has a chronic anemia but she is not clear why. She came emergency department and it was recommended she be admitted because of a slightly elevated potassium and elevated creatinine. She states that her ex- helps take care of her but does not live with her. Review of Systems Constitutional Constitutional: Denies body ache(s), Denies chills, Reports daytime sleepiness, Denies fever(s), Reports malaise and Reports weakness Cardiovascular Cardiovascular: Denies chest pain, Denies syncope, Denies rapid heart rate, Denies palpitations and Denies dyspnea Respiratory Respiratory: Denies cough and Denies dyspnea Gastrointestinal Gastrointestinal: Denies heartburn, Reports diarrhea, Denies nausea and Denies vomiting Genitourinary Genitourinary: Reports difficulty voiding Musculoskeletal Comments: left groin pain. Neurologic Neurologic: Reports confusion, Denies syncope and Reports weakness Psychiatric Psychiatric: Reports confusion Endocrine Endocrine: Denies palpitations [facility] Medical History Anxiety disorder Cerebral palsy Chronic anemia Heart failure with preserved ejection fraction Osteoarthritis of right hip joint due to dysplasia Polycystic ovaries Rhabdomyolysis Scoliosis (and kyphoscoliosis), idiopathic Toxic metabolic encephalopathy (~11/26/20) Surgical History S/P spinal fusion Status post Girdlestone procedure Social History Smoking/Tobacco Use Status: Never Smoking risk assessment performed?: Yes Alcohol Intake: never Drug use: Never Substance use type: does not use Do you feel safe at home: Yes Do you feel safe in your relationship?: Yes Meds Allergies and Home Medications Allergies Allergy/AdvReac Type Severity Reaction Status Date / Time amoxicillin Allergy Unverified 02/24/21 16:11 morphine Allergy Unverified 02/24/21 16:11 bees Allergy Uncoded 02/24/21 16:11 pine nuts Allergy Uncoded 02/24/21 16:11 Home Medications Medication Instructions Recorded Confirmed Type baclofen 40 mg PO TID 02/16/21 02/24/21 History citalopram 20 mg PO DAILY 02/16/21 02/24/21 History cyclobenzaprine 5 mg PO QID PRN 02/16/21 02/24/21 History lisinopril 10 mg PO DAILY 02/16/21 02/24/21 History methocarbamol 750 mg PO QID PRN 02/16/21 02/24/21 History ondansetron HCl [Zofran] 4 mg PO DIRECTED PRN 02/16/21 02/24/21 History L. acidophilus,casei,rhamnosus 1 cap PO DAILY #30 cap 02/20/21 02/24/21 Rx [Bio-K plus] carvedilol 25 mg PO BID #60 tab 02/20/21 02/24/21 Rx chlorthalidone 25 mg PO DAILY #30 tab 02/20/21 02/24/21 Rx clindamycin HCl 450 mg PO TID #21 cap 02/20/21 02/24/21 Rx ferrous sulfate 325 mg PO BID #60 tab 02/20/21 02/24/21 Rx folic acid 1 mg PO DAILY #30 tab 02/20/21 02/24/21 Rx Exam Const General: cooperative, not in acute distress and not ill appearing Orientation: alert and awake Limitations: mental status not altered Neck Neck: normal visual inspection and no lymphadenopathy Resp Effort & Inspection: normal respiratory effort, able to speak in complete sentences and no cough Auscultation: no rales, no rhonchi and no wheezes Cardio Jugular venous pressure: no JVD Rate: regular rate Rhythm: regular rhythm Heart Sounds: S1 normal and S2 normal GI Inspection: distended Palpation: soft, no hepatosplenomegaly and nontender Percussion: tympanic to percussion Neuro General: patient alert and patient awake Extrem General: normal to inspection, no calf tenderness and no edema Results Labs Result diagrams: 02/24/21 15:55 02/24/21 15:55 Labs: Laboratory Results - last 24 hr 02/24/21 02/24/21 02/24/21 15:55 15:55 16:55 WBC 7.36 RBC 3.33 L Hgb 7.9 L Hct 27.3 L MCV 82.0 MCH 23.7 L MCHC 28.9 L RDW 18.8 H Plt Count 268 MPV 11.8 H Immature Gran % 0.7 Neutrophils % 70.8 Lymphocytes % 18.2 Monocytes % 9.0 Eosinophils % 0.8 Basophils % 0.5 Nucleated RBC % 0 Absolute Neutrophils 5.21 Absolute Lymphocytes 1.34 Absolute Monocytes 0.66 Absolute Eosinophils 0.06 Absolute Basophils 0.04 RBC Morphology See Below Hypochromasia 1+ Anisocytosis 1+ Microcytosis 1+ Sodium 138 Potassium 5.5 H Chloride 104 Carbon Dioxide 26.4 Anion Gap 7.6 BUN 39 H Creatinine 2.4 H Estimated GFR/1.73 m2 21.83 Glucose 98 Calcium 8.6 Magnesium 2.4 Total Bilirubin 1.0 AST 21 ALT 18 Alkaline Phosphatase 55 Troponin I < 0.05 Total Protein 7.6 Albumin 3.6 TSH 1.83 Urine Color Yellow Urine Clarity Clear Urine pH 5.5 Ur Specific Cinebar 1.020 Urine Protein Trace H Urine Ketones Negative Urine Blood Negative Urine Nitrite Negative Urine Bilirubin Negative Urine Urobilinogen 0.2 Ur Leukocyte Esterase Negative Urine RBC Negative Urine WBC 3-5 Ur Epithelial Cells Moderate Urine Crystals Few Amorphous Urine Bacteria Negative Urine Casts Negative Urine Mucus Negative Ur Culture Indicated? No Urine Glucose Negative COVID-19 Source SARS-CoV-2 (PCR) 02/24/21 17:40 WBC RBC Hgb Hct MCV MCH MCHC RDW Plt Count MPV Immature Gran % Neutrophils % Lymphocytes % Monocytes % Eosinophils % Basophils % Nucleated RBC % Absolute Neutrophils Absolute Lymphocytes Absolute Monocytes Absolute Eosinophils Absolute Basophils RBC Morphology Hypochromasia Anisocytosis Microcytosis Sodium Potassium Chloride Carbon Dioxide Anion Gap BUN Creatinine Estimated GFR/1.73 m2 Glucose Calcium Magnesium Total Bilirubin AST ALT Alkaline Phosphatase Troponin I Total Protein Albumin TSH Urine Color Urine Clarity Urine pH Ur Specific Cinebar Urine Protein Urine Ketones Urine Blood Urine Nitrite Urine Bilirubin Urine Urobilinogen Ur Leukocyte Esterase Urine RBC Urine WBC Ur Epithelial Cells Urine Crystals Urine Bacteria Urine Casts Urine Mucus Ur Culture Indicated? Urine Glucose COVID-19 Source Nasal/Nares SARS-CoV-2 (PCR) Negative Last Vital Signs Temp 36.5 C 02/24/21 18:29 Pulse 80 02/24/21 18:35 Resp 14 02/24/21 18:29 BP 126/78 02/24/21 18:29 Pulse Ox 97 02/24/21 18:29
[2021-02-24 21:12] LABS: Reticulocyte 2.5 % (0.5-2.4)
[2021-02-24] MEDS: Carvedilol 25 MG TAB PO (21:12)
[2021-02-24 21:22] LABS: Iron 130 ug/dL (50-170); Total Iron Binding Capacity 421 ug/dL (250-450); Transferrin Sat 31 % (15-50)
[2021-02-24 21:39] LABS: BUN 37 mg/dL (7-18); CREATININE 2.2 mg/dL (0.55-1.02); Calcium 8.6 mg/dL (8.5-10.1); Chloride 106 mmol/L (98-107); Estimated GFR 24.14 (mL/min/1.73m2); Glucose 78 mg/dL (74-106); Potassium 5.1 mmol/L (3.5-5.1); Sodium 140 mmol/L (136-145)
[2021-02-24 21:48] LABS: Troponin I < 0.05 ng/mL (<0.06)
[2021-02-25] VITALS (10 sets, daily range): BP systolic 99–156; BP diastolic 62–88; PULSE 49–108; RESP 6–22; TEMP 35.8–37.2; O2SAT 92–100
[2021-02-25 00:16] LABS: C Diff PCR Negative (Negative)
[2021-02-25] MEDS: Normal Saline 1,000 ML 150 ML IV ×3 (01:00→16:35)
[2021-02-25 06:52] LABS: Abs Immature Grans 0.03 10^3/uL (0.0-0.06); Absolute Basophil Count 0.05 10^3/uL (0.0-0.2); Absolute Eosinophil Count 0.07 10^3/uL (0.0-0.7); Absolute Monocyte Count 0.59 10^3/uL (0.1-0.8); Absolute Neutrophil Count 3.49 10^3/uL (1.2-6.7); Basophils % 0.8; Eosinophils % 1.2; HGB 7.7 g/dL (11.2-15.7); Immature Grans % 0.5; Lymphocytes % 28.7; MCH 23.3 pg (27.0-33.0); MCHC 28.5 % (32.0-36.0); MCV 81.8 fL (80-95); MPV 11.6 fL (8.0-11.0); Monocytes % 9.9; Neutrophils % 58.9; Nucleated RBC 0 %; Platelet Count 233 10^3/uL (130-400); RDW 19.1 % (11.7-14.6); RDW-SD 55.7 fL; WBC 5.93 10^3/uL (4.4-10.8)
[2021-02-25 07:01] LABS: Anion Gap 5.7 mmol/L (3-11); BUN 35 mg/dL (7-18); CO2 27.3 mmol/L (21.0-32.0); CREATININE 1.9 mg/dL (0.55-1.02); Calcium 8.3 mg/dL (8.5-10.1); Chloride 109 mmol/L (98-107); Estimated GFR 28.59 (mL/min/1.73m2); Glucose 86 mg/dL (74-106); Sodium 142 mmol/L (136-145)
[2021-02-25] MEDS: Methocarbamol 750 MG TAB PO ×2 (08:59→13:51)
[2021-02-25] MEDS: Citalopram 20 MG TAB PO (08:59)
[2021-02-25] MEDS: Carvedilol 25 MG TAB PO ×2 (08:59→20:43)
[2021-02-25] MEDS: Baclofen 10 MG TAB 40 MG PO ×3 (09:05→20:43)
--- NOTE | 2021-02-25 17:32 | W.PM.PROGNOT ---
Date of Service Date of service: 02/25/21 Time of Service: 17:32 Assessment and Plan Assessment and plan (1) Dehydration: Status: Acute Assessment and plan: improved with hydration (2) Gastroenteritis: Status: Resolved Assessment and plan: resolved (3) Chronic anemia: Status: Chronic Assessment and plan: continue supplementations (4) Weakness: Status: Acute Assessment and plan: improved (5) YOGESH (acute kidney injury): Status: Resolved Assessment and plan: improved with hydration discussed with Dr Allen Subjective Subjective Patient reports: no new complaints, feels better, tolerating liquids well, tolerating a regular diet and afebrile; denies shortness of breath Exam Const General: cooperative, comfortable, no acute distress and disheveled Orientation: alert and awake HENAL Head: normal to inspection, normocephalic and atraumatic Mouth: moist mucous membranes abnormal (Slightly dry) Eyes General: appearance normal, both eyes and all related structures Alignment and Position: alignment normal Periorbital: periorbital findings normal Eyelids: eyelids normal Conjunctivae: conjunctivae normal Sclera: sclerae normal Cornea: corneas normal Pupils: PERRL EOM: EOM intact bilaterally Direct ophthalmoscopy: normal light reflex Neck Neck: normal visual inspection, full ROM, trachea midline, supple and nontender Resp Effort & Inspection: normal respiratory effort and able to speak in complete sentences Auscultation: diminished lung sounds bilaterally in the lower lung villa and rales (Scattered, mostly clear with cough) Cardio Rate: regular rate Rhythm: regular rhythm GI Inspection: other (Distended) Palpation: not firm, no guarding, no pulsatile masses and nontender Auscultation: normal bowel sounds Back/Spine/Pelvis Back: no CVA tenderness and No back tenderness Skin General skin exam: no rashes or lesions noted Neuro General: patient alert, patient awake, moves all extremities and no focal motor deficits Cognition: normal cognition Speech: speech normal Sensory Exam: no sensory deficits noted Extrem General: capillary refill normal Psych Appearance: grossly normal Mental Status: mental status grossly normal Objective Last Vital Signs Temp 36.5 C 02/25/21 15:15 Pulse 75 02/25/21 15:33 Resp 22 02/25/21 15:15 BP 156/88 H 02/25/21 15:15 Pulse Ox 93 02/25/21 15:15 Laboratory Results - last 24 hr 02/24/21 02/24/21 02/24/21 15:55 15:55 16:55 WBC RBC Hgb Hct MCV MCH MCHC RDW Plt Count MPV Reticulocyte % (Auto) 2.5 H Immature Gran % Neutrophils % Lymphocytes % Monocytes % Eosinophils % Basophils % Nucleated RBC % Absolute Neutrophils Absolute Lymphocytes Absolute Monocytes Absolute Eosinophils Absolute Basophils Sodium Potassium Chloride Carbon Dioxide Anion Gap BUN Creatinine Estimated GFR/1.73 m2 Glucose Calcium Iron 130 TIBC 421 Transferrin % Sat 31 Troponin I Urine RBC Negative Urine WBC 3-5 Ur Epithelial Cells Moderate Urine Crystals Few Amorphous Urine Bacteria Negative Urine Casts Negative Urine Mucus Negative Ur Culture Indicated? No Stl C.difficile Tox PCR COVID-19 Source SARS-CoV-2 (PCR) 02/24/21 02/24/21 02/24/21 17:40 21:25 21:25 WBC RBC Hgb Hct MCV MCH MCHC RDW Plt Count MPV Reticulocyte % (Auto) Immature Gran % Neutrophils % Lymphocytes % Monocytes % Eosinophils % Basophils % Nucleated RBC % Absolute Neutrophils Absolute Lymphocytes Absolute Monocytes Absolute Eosinophils Absolute Basophils Sodium 140 Potassium 5.1 Chloride 106 Carbon Dioxide 26.0 Anion Gap 8.0 BUN 37 H Creatinine 2.2 H Estimated GFR/1.73 m2 24.14 Glucose 78 Calcium 8.6 Iron TIBC Transferrin % Sat Troponin I < 0.05 Urine RBC Urine WBC Ur Epithelial Cells Urine Crystals Urine Bacteria Urine Casts Urine Mucus Ur Culture Indicated? Stl C.difficile Tox PCR COVID-19 Source Nasal/Nares SARS-CoV-2 (PCR) Negative 02/24/21 02/25/21 02/25/21 22:50 06:36 06:36 WBC 5.93 RBC 3.30 L Hgb 7.7 L Hct 27.0 L MCV 81.8 MCH 23.3 L MCHC 28.5 L RDW 19.1 H Plt Count 233 MPV 11.6 H Reticulocyte % (Auto) Immature Gran % 0.5 Neutrophils % 58.9 Lymphocytes % 28.7 Monocytes % 9.9 Eosinophils % 1.2 Basophils % 0.8 Nucleated RBC % 0 Absolute Neutrophils 3.49 Absolute Lymphocytes 1.70 Absolute Monocytes 0.59 Absolute Eosinophils 0.07 Absolute Basophils 0.05 Sodium 142 Potassium 5.0 Chloride 109 H Carbon Dioxide 27.3 Anion Gap 5.7 BUN 35 H Creatinine 1.9 H Estimated GFR/1.73 m2 28.59 Glucose 86 Calcium 8.3 L Iron TIBC Transferrin % Sat Troponin I Urine RBC Urine WBC Ur Epithelial Cells Urine Crystals Urine Bacteria Urine Casts Urine Mucus Ur Culture Indicated? Stl C.difficile Tox PCR Negative COVID-19 Source SARS-CoV-2 (PCR)
--- NOTE | 2021-02-25 19:08 | INITIAL_ITS ---
- If Service Date Differs Date of service: 02/25/21 Time of Service: 19:08 Care Management Initial Assess REASON FOR HOSPITALIZATION:: hyperkalemia, minnie PAST MEDICAL HISTORY/PAST SURGICAL HISTORY:: Medical History. Anxiety disorder. Cerebral palsy. Chronic anemia. Heart failure with preserved ejection fraction. Osteoarthritis of right hip joint due to dysplasia. Polycystic ovaries. Rhabdomyolysis. Scoliosis (and kyphoscoliosis), idiopathic. Toxic metabolic encephalopathy (~11/26/20). Surgical History. S/P spinal fusion. Status post Girdlestone procedure PREVIOUS FUNCTIONAL STATUS/SOCIAL/FAMILY SUPPORTS:: Paige is currently residing at a hotel in [place], [place]. Her lives in [place], [place]. She reported that she cannot live with him because his home is not accessible to her. She uses a w/c and walker at baseline. She receives support from her , friends, and a case management rn, Amanda at [facility]. CURRENT FUNCTIONAL STATUS:: Paige was sitting up in bed when CM met with her. She reported that she is feeling better, and per MD, her diet will be advanced, and if she is able to tolerate it, she may be discharged as early as tomorrow. She stated that she met with her community services coordinator on Sunday, and should be meeting with Ryan, [facility], to complete the transition of her [facility] from [place] to [place]. MARIEL emailed Ryan to inquire about their upcoming appointment, as she is inpatient currently. MARIEL will continue to follow. ADVANCE DIRECTIVES:: None on file. Has patient been provided with info about the portal/API?: Yes Did the patient sign up for the portal?: No CODE STATUS:: Full Code INSURANCE COVERAGE / FINANCIAL ISSUES:: [employer] CURRENT HOME/COMMUNITY SERVICES/EQUIPMENT:: Paige has a manual wheel chair, a 4WW and a shower chair. She has MOW and a case management rn, Amanda, from [facility]. PRIMARY CARE PHYSICIAN:: Meet Chaney, [facility] ([place], [place]) POTENTIAL DISCHARGE NEEDS:: follow up appointments PATIENT/FAMILY EDUCATION NEEDS:: Review discharge instructions regarding activity levels and medications, discussion of self care needs and goals of care. ANTICIPATED BARRIERS TO DISCHARGE:: None identified. TRANSPORTATION:: RCT w/c van PLAN:: Paige will return home, to her hotel room at the [facility], once she is medically cleared. She will have outpatient PT (referred from previous hospitalization), and will follow up with her PCP and discharge plan of care. She will transport via [facility] w/c van. CM will continue to follow.
[2021-02-25 22:39] LABS: Campylobacter PCR Negative (Negative); Salmonella PCR Negative (Negative); Shiga Toxin PCR Negative (Negative); Shigella/Enteroinvasive Ecoli Negative (Negative)
[2021-02-26] VITALS (10 sets, daily range): BP systolic 123–180; BP diastolic 65–100; PULSE 69–99; RESP 16–20; TEMP 36.7–37.4; O2SAT 90–96
[2021-02-26] MEDS: Normal Saline 1,000 ML 150 ML IV ×2 (00:11→07:59)
[2021-02-26] MEDS: Methocarbamol 750 MG TAB PO ×4 (02:27→20:13)
[2021-02-26] MEDS: Carvedilol 25 MG TAB PO ×2 (07:24→20:11)
[2021-02-26] MEDS: Baclofen 10 MG TAB 40 MG PO ×3 (07:24→20:11)
[2021-02-26] MEDS: Citalopram 20 MG TAB PO (07:24)
--- NOTE | 2021-02-26 12:43 | PGE_ITS ---
Date of Service Date of service: 02/26/21 Time of Service: 12:43 Assessment and Plan Assessment and plan (1) YOGESH (acute kidney injury): Status: Resolved Assessment and plan: acute on chronic improved with hydration. chlorthalidone and lisinopril were placed on hold. resuming lisinopril today. follow kidney function monitor for urinary retention, consider renal US when available if needed. (2) Gastroenteritis: Status: Resolved Assessment and plan: resolved, taking PO stop IV fluids (3) Chronic anemia: Status: Chronic Assessment and plan: continue iron and folate supplementations her iron level up from 18 to 130 Her previous Hgb has been in the 8-9 range since 2018. (4) Weakness: Status: Acute Assessment and plan: PT/OT consult (5) Hypertension: Status: Acute Assessment and plan: will restart lisinopril, monitor blood pressure, adjust as needed. follow creatinine. Qualifiers: Hypertension type: primary hypertension Qualified Code(s): I10 - Essential (primary) hypertension (6) DVT prophylaxis: Status: Acute Assessment and plan: enoxaparin daily, renal dosing as needed.\ no evidence of gi bleeding, will monitor (7) Discharge planning issues: Status: Acute Assessment and plan: care management following. barriers include [place] medicaid, working on transitioning to [place] medicaid lives in a motel plan to discharge back when medically stable. discussed with Dr Hollins Subjective Subjective Patient reports: no new complaints, feels better, tolerating liquids well, tolerating a regular diet, voiding w/o difficulty and afebrile Interval history since last seen: patient continues to slowly improve but not feeling at her baseline. she is eating and drinking. she is getting out of bed but feels weak. Exam Const General: cooperative, comfortable, no acute distress and disheveled Orientation: alert and awake [facility] Head: normal to inspection, normocephalic and atraumatic Mouth: moist mucous membranes abnormal (Slightly dry) Eyes General: appearance normal, both eyes and all related structures Alignment and Position: alignment normal Periorbital: periorbital findings normal Eyelids: eyelids normal Conjunctivae: conjunctivae normal Sclera: sclerae normal Cornea: corneas normal Pupils: PERRL EOM: EOM intact bilaterally Direct ophthalmoscopy: normal light reflex Neck Neck: normal visual inspection, full ROM, trachea midline, supple and nontender Resp Effort & Inspection: normal respiratory effort and able to speak in complete sentences Auscultation: diminished lung sounds bilaterally in the lower lung villa and rales (Scattered, mostly clear with cough) Cardio Rate: regular rate Rhythm: regular rhythm GI Inspection: other (Distended) Palpation: not firm, no guarding, no pulsatile masses and nontender Auscultation: normal bowel sounds Back/Spine/Pelvis Back: no CVA tenderness and No back tenderness Skin General skin exam: no rashes or lesions noted Neuro General: patient alert, patient awake, moves all extremities and no focal motor deficits Cognition: normal cognition Speech: speech normal Sensory Exam: no sensory deficits noted Extrem General: capillary refill normal Psych Appearance: grossly normal Mental Status: mental status grossly normal Objective Last Vital Signs Temp 37.3 C 02/26/21 07:21 Pulse 91 H 02/26/21 07:21 Resp 18 02/26/21 07:21 BP 157/97 H 02/26/21 07:21 Pulse Ox 92 02/26/21 07:21
[2021-02-26] MEDS: Enoxaparin 30 MG/0.3 ML SYR SC (13:58)
[2021-02-26] MEDS: Lisinopril 10 MG TAB PO (13:59)
[2021-02-26] MEDS: Ferrous Sulfate 325 MG TAB PO (20:11)
[2021-02-27] MEDS: Methocarbamol 750 MG TAB PO ×4 (01:00→20:46)
[2021-02-27 02:15] VITALS: PULSE 67
[2021-02-27] MEDS: Ondansetron 4 MG TAB PO (06:05)
[2021-02-27 07:10] VITALS: BP 169/98; PULSE 88; RESP 20; TEMP 36.5; O2SAT 94
[2021-02-27] MEDS: Carvedilol 25 MG TAB PO ×2 (07:21→20:45)
[2021-02-27] MEDS: Ferrous Sulfate 325 MG TAB PO ×2 (07:21→20:45)
[2021-02-27] MEDS: Baclofen 10 MG TAB 40 MG PO ×3 (07:21→20:45)
[2021-02-27] MEDS: Citalopram 20 MG TAB PO (07:21)
[2021-02-27] MEDS: Folic Acid 1 MG TAB PO (08:02)
[2021-02-27] MEDS: Lisinopril 10 MG TAB PO (08:02)
[2021-02-27 08:05] LABS: Abs Immature Grans 0.02 10^3/uL (0.0-0.06); Absolute Basophil Count 0.02 10^3/uL (0.0-0.2); Absolute Lymphocyte Count 1.13 10^3/uL (1.2-3.4); Absolute Neutrophil Count 4.27 10^3/uL (1.2-6.7); Basophils % 0.3; Eosinophils % 1.7; HGB 8.7 g/dL (11.2-15.7); Immature Grans % 0.3; MCH 23.4 pg (27.0-33.0); MPV 11.3 fL (8.0-11.0); Monocytes % 6.7; Nucleated RBC 0 %; Platelet Count 259 10^3/uL (130-400); RBC 3.72 10^6/uL (3.93-5.22); RDW 19.4 % (11.7-14.6); RDW-SD 52.8 fL; WBC 5.94 10^3/uL (4.4-10.8)
[2021-02-27 08:21] LABS: Anion Gap 8.1 mmol/L (3-11); BUN 11 mg/dL (7-18); CO2 23.9 mmol/L (21.0-32.0); CREATININE 0.9 mg/dL (0.55-1.02); Calcium 9.2 mg/dL (8.5-10.1); Chloride 105 mmol/L (98-107); Glucose 96 mg/dL (74-106); Sodium 137 mmol/L (136-145)
--- NOTE | 2021-02-27 10:16 | IN_ITS ---
Date of service: 02/27/21 Time of Service: 09:20 PT Notes Visit Reasons: Hyperkalemia, Acute Kidney Injury Inpatient Physical Therapy Evaluation Date: 02/27/21 Referring Doctor: Yelitza Busch PT Orders: PT CONSULT: Evaluate and Treat Precautions: Standard Patient Profile/Admitting Diagnosis: Orders received for this 45 year old female who was brought to the hospital with the diagnosis of weakness and diarrhea. She has recently moved to [place] after from her who lives in [place]. SHe has been staying at the [facility] in [place] but recently started having a change in bowel habits with progressive weakness. She was brought to the hospital and accepted for admission. Medical History Anxiety disorder Cerebral palsy Chronic anemia Heart failure with preserved ejection fraction Osteoarthritis of right hip joint due to dysplasia Polycystic ovaries Rhabdomyolysis Scoliosis (and kyphoscoliosis), idiopathic Toxic metabolic encephalopathy (~11/26/20) Surgical History S/P spinal fusion Status post Girdlestone procedure Social History/Home Situation: Current resident of the [facility] in [place] Equipment Owned/DME: FWW, wheel chair and shower stool Subjective: Patient states she is still having diarrhea but doing okay Objective: Patient lying in bed watching TV. No medical lines in place currently. There is slight athetoid movements associated with her CP diagnosis but non obstructive to her movement. This also appears to be at baseline Mental Status: Oriented to person, place and time Pain: 0/10 ROM: Right Upper Extremity: WFL Left Upper Extremity: WFL Right Lower Extremity: WFL Limited dorsiflexion as the foot is stable in position of equinas Left Lower Extremity: WFL, Limited dorsiflexion as the foot is stable in po sition of equinas, in standing there is slight increase inversion Strength: Right Upper Extremity: Globally 4+/5 Left Upper Extremity: Globally 4+/5 Right Lower Extremity: Globally 4+/5 Left Lower Extremity: Globally 4+/5 Bed Mobility/Transfers: Patient requires min assist for transfer from supine to sit on edge of table Sit to stand: With CGA patient comes to construction management instructor FWW. The FWW needs adjusting as it is much too tall for her. This is modified by Therapist Stand to sit: Patient is lower to sit with CGA Gait: Within Room walking under CGA. She ambulates with use of a lead step th rough the left and a step to gait pattern with the right meeting the left but no advancement from this. Balance: Static Sitting: Good Dynamic Sitting: Good Static Standing: Good Dynamic Standing: Good Special Tests: Mobility Limitations Standardized Measure [facility] AM-PAC 6 clicks Basic Mobility Inpatient Short Form: Raw Score: 17 Standardized Score: 42.13 CMS Score: 50.57% Informed Consent/Education: Patient instructed in purpose of PT consult and plan of care. ASSESSMENT: Patient is a 45 year old female with hx of fair physical health Admitted with diagnosis of weakness and diarrhea Patient presents with the following impairment level findings: Assistance needed for transfers, Ambulation in tolerance, weakness Pt will benefit from skilled therapy intervention in order to remedy their functional limitations and restore patient to a more appropriate and stable functional level. Impairments are contributing to the following functional limitations: AMPAC score 50.57% Patient is assessed as a Moderate Complexity Initial Evaluation based on the following: History: see above Examination: see above Presentation: Evolving Decision Making: Moderate due to AMPAC of 50.57%% Goals: Goals X1 week 1. Supine-Sit Supervision 2. Sit-Supine Supervision 3. Sit-Stand Supervision 4. Stand-Sit Supervision 5. Bed-Chair Supervision 6. Gait With Supervision and use of FF walker up to 100 feet Plan of Care/Treatment Plan: 1-2x/day, 7 days/week x 1 week. Plan of care has been reviewed with the REPA[employer] providing the service under Physical Therapy direction. Initiate Physical Therapy intervention for strengthening, bed mobility, transfers, gait, stairs, balance training, use of assistive device. DISCHARGE RECOMMENDATIONS: To her prior living arrangement at the [facility] once medically stable TREATMENT CODE/TIME: Moderate Complexity Initial evaluation 52661 Time of treatment 920, 25 minutes of direct patient care [facility]
[2021-02-27 11:51] VITALS: BP 150/92; PULSE 71; RESP 17; TEMP 36.6; O2SAT 94
--- NOTE | 2021-02-27 12:42 | W.PM.PROGNOT ---
Date of Service Date of service: 02/27/21 Time of Service: 12:42 Assessment and Plan Assessment and plan (1) YOGESH (acute kidney injury): Status: Resolved Assessment and plan: acute on chronic resolved and stable off IV hydration. chlorthalidone and lisinopril were placed on hold. lisinopril resumed follow kidney function monitor for urinary retention, consider renal US when available if needed. (2) Gastroenteritis: Status: Resolved Assessment and plan: resolved, taking PO stop IV fluids (3) Chronic anemia: Status: Chronic Assessment and plan: continue iron and folate supplementations her iron level up from 18 to 130 Her previous Hgb has been in the 8-9 range since 2018. (4) Weakness: Status: Acute Assessment and plan: PT/OT consult (5) Hypertension: Status: Acute Assessment and plan: will restart lisinopril, monitor blood pressure, adjust as needed. follow creatinine. Qualifiers: Hypertension type: primary hypertension Qualified Code(s): I10 - Essential (primary) hypertension (6) DVT prophylaxis: Status: Acute Assessment and plan: enoxaparin daily, renal dosing as needed.\ no evidence of gi bleeding, will monitor (7) Discharge planning issues: Status: Acute Assessment and plan: care management following. barriers include [place] medicaid, working on transitioning to [place] medicaid lives in a motel plan to discharge back when medically stable. discussed with Dr Hollins Subjective Subjective Patient reports: tolerating liquids well, tolerating a regular diet, bowel movement (x3 but soft per nursing, patient reports diarrhea) and afebrile Interval history since last seen: working with physical therapy Exam Const General: cooperative, comfortable, no acute distress and other (chronically ill appearing. resting tremor which is baseline) Orientation: alert and awake [facility] Head: normal to inspection, normocephalic and atraumatic Mouth: moist mucous membranes abnormal (Slightly dry) Eyes Sclera: sclerae normal Pupils: PERRL Neck Neck: normal visual inspection, full ROM, trachea midline, supple and nontender Resp Effort & Inspection: normal respiratory effort and able to speak in complete sentences Auscultation: diminished lung sounds bilaterally in the lower lung villa Cardio Rate: regular rate Rhythm: regular rhythm GI Inspection: other (Distended) Palpation: not firm, no guarding, no pulsatile masses and nontender Auscultation: normal bowel sounds Back/Spine/Pelvis Back: no CVA tenderness and No back tenderness Skin General skin exam: no rashes or lesions noted Neuro General: patient alert, patient awake, moves all extremities and no focal motor deficits Cognition: normal cognition Speech: speech normal Sensory Exam: no sensory deficits noted Extrem General: capillary refill normal Psych Appearance: grossly normal Mental Status: mental status grossly normal Objective Last Vital Signs Temp 36.6 C 02/27/21 11:51 Pulse 71 02/27/21 11:51 Resp 17 02/27/21 11:51 BP 150/92 H 02/27/21 11:51 Pulse Ox 94 02/27/21 11:51 Laboratory Results - last 24 hr 02/26/21 02/27/21 02/27/21 13:08 07:25 07:25 WBC 5.94 RBC 3.72 L Hgb 8.7 L Hct 29.0 L MCV 78.0 L MCH 23.4 L MCHC 30.0 L RDW 19.4 H Plt Count 259 MPV 11.3 H Immature Gran % 0.3 Neutrophils % 72.0 Lymphocytes % 19.0 Monocytes % 6.7 Eosinophils % 1.7 Basophils % 0.3 Nucleated RBC % 0 Absolute Neutrophils 4.27 Absolute Lymphocytes 1.13 L Absolute Monocytes 0.40 Absolute Eosinophils 0.10 Absolute Basophils 0.02 Sodium 137 Potassium 5.0 Chloride 105 Carbon Dioxide 23.9 Anion Gap 8.1 BUN 11 D Creatinine 0.9 D Estimated GFR/1.73 m2 >= 60.00 Glucose 96 Calcium 9.2 Iron Cancelled TIBC Cancelled Transferrin % Sat Cancelled
[2021-02-27] MEDS: Enoxaparin 30 MG/0.3 ML SYR SC (15:01)
[2021-02-27 15:43] VITALS: BP 124/82; PULSE 63; RESP 17; TEMP 37.5; O2SAT 95
[2021-02-27 19:47] VITALS: BP 149/75; PULSE 67; RESP 20; TEMP 36.5; O2SAT 95
[2021-02-27] MEDS: Cholestyramine/Aspartame PKT 1 EACH PO (19:50)
[2021-02-27 20:35] LABS: Campylobacter PCR Negative (Negative); Salmonella PCR Negative (Negative); Shiga Toxin PCR Negative (Negative); Shigella/Enteroinvasive Ecoli Negative (Negative)
[2021-02-27] MEDS: Normal Saline Flush 10 ML SYR IVP (20:51)
[2021-02-28 00:38] VITALS: BP 131/79; PULSE 71; RESP 19; TEMP 36.1; O2SAT 95
[2021-02-28] MEDS: Methocarbamol 750 MG TAB PO ×3 (01:15→14:15)
[2021-02-28 04:11] VITALS: BP 124/82; PULSE 64; RESP 18; TEMP 37.3; O2SAT 95
[2021-02-28 07:14] LABS: Abs Immature Grans 0.01 10^3/uL (0.0-0.06); Absolute Basophil Count 0.03 10^3/uL (0.0-0.2); Absolute Lymphocyte Count 1.78 10^3/uL (1.2-3.4); Absolute Monocyte Count 0.47 10^3/uL (0.1-0.8); Absolute Neutrophil Count 2.66 10^3/uL (1.2-6.7); Basophils % 0.6; HCT 29.2 % (36.0-46.0); HGB 8.6 g/dL (11.2-15.7); Immature Grans % 0.2; Lymphocytes % 35.2; MCH 23.3 pg (27.0-33.0); MCHC 29.5 % (32.0-36.0); MCV 79.1 fL (80-95); MPV 11.2 fL (8.0-11.0); Monocytes % 9.3; Neutrophils % 52.7; Nucleated RBC 0 %; Platelet Count 282 10^3/uL (130-400); RBC 3.69 10^6/uL (3.93-5.22); RDW 19.5 % (11.7-14.6); RDW-SD 53.9 fL; WBC 5.05 10^3/uL (4.4-10.8)
--- NOTE | 2021-02-28 07:28 | CMPROGNOTE_ITS ---
- If Service Date Differs Date of service: 02/28/21 Time of Service: 07:28 Care Management Progress Note S/O: Paige was sitting up in bed when CM met with her. She was awake and alert and easily engaged in conversation. She shared that she is planning on going back to the [facility] this afternoon where she lives alone. She does not have any concerns about discharge other than borrowing a wheelchair during transport. She is from her [place] however he is supportive and delivers her groceries. A: 45 year old female admitted to [facility] on 02/24/21 for hyperkalemia, acute kidney injury. P: Paige will be discharged home today to her hotel room at the [facility]. She will resume outpatient PT, her PCP Dr. Flores on 03/05/21 and Amanda at [facility]. She will transport via [facility] w/c van. CM will continue to support discharge needs.
[2021-02-28 07:34] LABS: Anion Gap 9.9 mmol/L (3-11); BUN 9 mg/dL (7-18); CO2 24.1 mmol/L (21.0-32.0); CREATININE 0.8 mg/dL (0.55-1.02); Calcium 9.5 mg/dL (8.5-10.1); Chloride 104 mmol/L (98-107); Glucose 82 mg/dL (74-106); Sodium 138 mmol/L (136-145)
[2021-02-28 07:41] LABS: Potassium 5.3 mmol/L (3.5-5.1)
[2021-02-28 08:14] VITALS: BP 164/100; PULSE 82; RESP 19; TEMP 37; O2SAT 96
[2021-02-28] MEDS: Ferrous Sulfate 325 MG TAB PO (08:40)
[2021-02-28] MEDS: Folic Acid 1 MG TAB PO (08:40)
[2021-02-28] MEDS: Citalopram 20 MG TAB PO (08:40)
[2021-02-28] MEDS: Carvedilol 25 MG TAB PO (08:41)
[2021-02-28] MEDS: Lisinopril 10 MG TAB PO (08:41)
[2021-02-28] MEDS: Baclofen 10 MG TAB 40 MG PO ×2 (09:27→13:52)
[2021-02-28] MEDS: Cholestyramine/Aspartame PKT 1 EACH PO (09:27)
[2021-02-28] MEDS: Sodium Zirconium Cyclosilicate 10 GM PKT PO (09:28)
[2021-02-28] MEDS: Ondansetron 4 MG TAB PO (09:35)
[2021-02-28] MEDS: amLODIPine 5 MG TAB PO (11:11)
[2021-02-28 11:30] VITALS: PULSE 75; RESP 18; TEMP 36.8; O2SAT 96
[2021-02-28 11:40] VITALS: BP 134/88
--- NOTE | 2021-02-28 11:56 | DSE_ITS ---
Date of service: 02/28/21 Time of Service: 11:56 DS: Diagnosis Discharge Diagnosis (1) YOGESH (acute kidney injury): Status: Resolved (2) Gastroenteritis: Status: Resolved (3) Chronic anemia: Status: Chronic (4) Weakness: Status: Acute (5) Hypertension: Status: Acute Discharge Plan Disposition Patient Disposition: HOME Condition: Stable Discharge Details Reason For Visit: Hyperkalemia, Acute Kidney Injury Admit Date/Time: 02/24/21 17:20 Admit Provider: Silviano Vanessa Attending Provider: Silviano Vanessa Primary Care Provider: Unknown,Unknown Hospital Course Hospital Course: Paige Nelson is a 45 year old female with a past medical history significant for CP, anxiety, heart failure with preserved ejection fraction, osteoarthritis, polycystic ovaries, scoliosis, who presented to the ED on 02/24/21 with weakness with a fall and diarrhea. She was recently hospitalized for aspiration PNA and discharged on 02/20, she remained on Clindamycin at the time of her presentation. In the ED, she was noted to be anemic with Hgb of 7.9 and Hct of 27.3, her K was elevated at 5.5 and BUN 39, creatinine 2.4 and GFR 21. She also had an abdominal x-ray which was negative, a left hip x-ray which showed mild DJD, a chest x-ray which showed mild cardiomegaly and probably small areas of atelectasis in lung bases. CT Head showed mild cerebral atrophy, no acute intracranial process. She was admitted to the med/surg floor for IV fluid hydration and further evaluation. Her antibiotics were stopped at the time of admission. Her C-diff testing was negative. She had one soft brown stool on the morning of discharge. Her labs improved with IV fluids. On the day of discharge, her BUN was normal at 9, creatinine was 0.8. Her potassium was mildly elevated at 5.3 for which she rec eived Lokelma. Her lisinopril and chlorthalidone will not be restarted at this time. Her BP was elevated and she was initiated on Amlodipine. Her Hbg and Hct are stable and at her baseline at 8.6 and 29.2. She is feeling better, she is tolerating her diet. She is encouraged to maintain a low potassium diet, which she states she usually does. She worked with PT who recommend returning home when medically ready. She is seeing her PCP on 03/03, Dr. Flores, in [place], [place] and will then be transitioning to a local provider. Home Meds and New Rx's Prescriptions: New amlodipine 5 mg Tablet 5 mg PO DAILY Qty: 30 RF: 0 Prevalite 4 gram Powder In Packet 1 ea PO 1000,1900 Qty: 10 RF: 0 Continued baclofen 20 mg Tablet 40 mg PO TID RF: 0 methocarbamol 750 mg Tablet 750 mg PO QID PRNRF: 0 citalopram 20 mg Tablet 20 mg PO DAILY RF: 0 ondansetron HCl [Zofran] 4 mg Tablet 4 mg PO DIRECTED PRNRF: 0 carvedilol 25 mg Tablet 25 mg PO BID Qty: 60 RF: 0 ferrous sulfate 325 mg (65 mg iron) Tablet 325 mg PO BID Qty: 60 RF: 0 folic acid 1 mg Tablet 1 mg PO DAILY Qty: 30 RF: 0 Bio-K plus 50 billion cell capsule,delayed release(DR/EC) 1 cap PO DAILY Qty: 30 RF: 0 Discontinued lisinopril 20 mg Tablet 10 mg PO DAILY RF: 0 clindamycin HCl 150 mg Capsule 450 mg PO TID Qty: 21 RF: 0 chlorthalidone 25 mg Tablet 25 mg PO DAILY Qty: 30 RF: 0 Discharge Instructions Instructions: Dehydration (DC), Hypotension (DC) Additional Instructions: Follow up with your PCP as scheduled. Stop taking Lisinopril and Chlorthalidone. Start taking Amlodipine for blood pressure. Recheck blood work next week. Stand Alone Forms: Nursing Discharge Form Referrals: [facility] [Other] - 03/03/21 (Dr. Meet Flores, already had an appt set since last admission) Activity:: Activity as Tolerated Equipment/Supplies:: No Equipment Needed Diet:: Low potassium Discharge Orders Discharge Orders: Discharge Order (Routine); Ordered 02/28/21 Ordered By: Alejandra Don Other Ambulatory Orders: Basic Metabolic Panel (Routine) Timeframe: 1 Week Location: None Selected Ordered By: Alejandra Don DS: Summary Time Spent with Patient providing and/or coordinating discharge services: Greater than 30 minutes Status at Discharge Functional status at discharge: uses cane/walker Overall status at discharge: patient is progressing back to baseline Mental Status: mental status grossly normal Speech and Movement: speech and movement normal (Spastic, but at baseline) Mood: congruent mood Affect: normal affect Exam Narrative Exam Narrative: General: well appearing, well-nourished female, laying in bed, in NAD. She is alert and oriented, pleasant and talkative. Resting tremor. HEENT: normocephalic, atraumatic, makes eye contact, mucous membranes moist. Neck: supple. Respiratory: respirations appear even and unlabored. GI: soft, nontender. Extremities: moves all extremities, no significant edema. Psych Mental Status: mental status grossly normal Speech and Movement: speech and movement normal (Spastic, but at baseline) Mood: congruent mood Affect: normal affect DS: Data Vitals/I&O Vitals and I&O: Vital Signs Temperature 37.0 C 02/28/21 08:14 Temperature Source Tympanic 02/28/21 08:14 Pulse 82 02/28/21 08:14 Pulse Rhythm Regular 02/28/21 05:06 Pulse 73 02/24/21 17:50 Respiratory Rate 19 02/28/21 08:14 Respiratory Effort 02/28/21 05:06 Respiratory Depth Normal 02/27/21 15:00 Respiratory Pattern Normal 02/28/21 05:06 Blood Pressure 164/100 H 02/28/21 08:14 Blood Pressure Mean 56 02/24/21 17:46 Blood Pressure Position Sitting 02/24/21 15:30 Pulse Oximetry 96 02/28/21 08:14 Oxygen Delivery Method Room Air 02/28/21 08:14 Oxygen Flow Rate 0 02/28/21 08:14 Fraction of Inspired Oxygen (FIO2) 30 02/25/21 11:50 Pain Level 0 02/28/21 08:14 Comment 02/27/21 11:10 Intake & Output 02/27/21 02/27/21 02/28/21 11:59 23:59 11:59 Intake Total 790 / 1240 450 / 1240 110 / 110 Output Total 1250 / 2300 1050 / 2300 1050 / 1050 Balance -460 / -1060 -600 / -1060 -940 / -940 Intake: IV Oral 790 / 1230 440 / 1230 100 / 100 Output: Urine 1250 / 2300 1050 / 2300 1050 / 1050 Other: Urine Color Yellow Pale Yellow Yellow Urine Appearance Clear Clear Clear Urine Odor Normal Normal Normal Comment Void x1 in the bedside commode. RN unable to determine urine amount; urine mixed with stool. urine mixed with stool Stool Occult Blood Negative Negative Negative Stool Size Moderate Small Moderate Stool Characteristics Soft Soft Soft Formed Brown Brown Brown Green Voiding Methods Bedside Commode Bedside Commode Bedside Commode Data Completed and Pending Completed studies during hospitalization [Text1]: Abdomen x-ray: FINDINGS: Four views were obtained. There is left convex lumbar scoliosis and there are spinal fixation devices at multiple levels. Lumbar spine appears fused. There is apparent pseudoarthrosis of the right hip. Left hip grossly unremarkable. Bowel gas pattern is within normal limits.. No gross evidence of obstruction. IMPRESSION: No evidence of acute process Left hip x-ray: FINDINGS: Two views were obtained. There is slight narrowing of the cartilaginous joint space of left hip. Mild hypertrophic marginal osteophytes acetabulum and femoral head noted. No other significant bony abnormality seen. IMPRESSION: Mild DJD left hip. CXR: FINDINGS: Note is again made of fixation devices in the spine and prior section of multiple ribs. There is a poor inspiration and there may be small areas atelectasis in both lung bases. Upper lung zones appear fairly clear. No gross pleural effusion seen. Heart is mildly enlarged. IMPRESSION: Mild cardiomegaly, probable small areas of atelectasis in lung bases. Small focal consolidation could not be excluded on the basis of this examination. Please correlate clinically. CT HEAD WO: FINDINGS: There is mild generalized cerebral atrophy, unusual in this age group. No evidence of acute intracranial hemorrhage, mass effect, or midline shift. The orbital structures are unremarkable. The temporal bone structures appear intact. Calvarium: Normal. Visualized Paranasal sinuses/Mastoids: Clear. IMPRESSION: No evidence of acute intracranial process. Mild cerebral atrophy noted which is unusual in this age group. Labs on day of discharge: Labs from last 24 hours 02/28/21 02/28/21 02/26/21 06:15 06:15 19:35 WBC 5.05 RBC 3.69 L Hgb 8.6 L Hct 29.2 L MCV 79.1 L MCH 23.3 L MCHC 29.5 L RDW 19.5 H Plt Count 282 MPV 11.2 H Immature Gran % 0.2 Neutrophils % 52.7 Lymphocytes % 35.2 Monocytes % 9.3 Eosinophils % 2.0 Basophils % 0.6 Nucleated RBC % 0 Absolute Neutrophils 2.66 Absolute Lymphocytes 1.78 Absolute Monocytes 0.47 Absolute Eosinophils 0.10 Absolute Basophils 0.03 Sodium 138 Potassium 5.3 H Chloride 104 Carbon Dioxide 24.1 Anion Gap 9.9 BUN 9 Creatinine 0.8 Estimated GFR/1.73 m2 >= 60.00 Glucose 82 Calcium 9.5 Stool Campylobacter PCR Negative Stool Salmonella PCR Negative Stool Shigella PCR Negative Shiga Toxin (PCR) Negative 02/24/21 22:50 WBC RBC Hgb Hct MCV MCH MCHC RDW Plt Count MPV Immature Gran % Neutrophils % Lymphocytes % Monocytes % Eosinophils % Basophils % Nucleated RBC % Absolute Neutrophils Absolute Lymphocytes Absolute Monocytes Absolute Eosinophils Absolute Basophils Sodium Potassium Chloride Carbon Dioxide Anion Gap BUN Creatinine Estimated GFR/1.73 m2 Glucose Calcium Stool Campylobacter PCR Negative Stool Salmonella PCR Negative Stool Shigella PCR Negative Shiga Toxin (PCR) Negative [facility] Medical History (Updated 02/28/21 @ 12:31 by Alejandra Don NP) Anxiety disorder Cerebral palsy Chronic anemia Heart failure with preserved ejection fraction Hyperkalemia Osteoarthritis of right hip joint due to dysplasia Polycystic ovaries Rhabdomyolysis Scoliosis (and kyphoscoliosis), idiopathic Toxic metabolic encephalopathy (~11/26/20) Surgical History S/P spinal fusion Status post Girdlestone procedure Social History Smoking/Tobacco Use Status: Never Smoking risk assessment performed?: Yes Alcohol Intake: never Drug use: Never Substance use type: does not use Do you feel safe at home: Yes Do you feel safe in your relationship?: Yes
--- NOTE | 2021-02-28 12:52 | PT.INTREAT ---
Date of service: 02/28/21 Time of Service: 11:17 PT Notes Visit Reasons: Hyperkalemia, Acute Kidney Injury Inpatient Physical Therapy Treatment Note [facility] Date: 02/28/2021 PRECAUTIONS: Fall SUBJECTIVE: Paige is pleasant and stating that she feels much better and is looking forward to returning home today. OBJECTIVE: PAIN: No c/o pain BED MOBILITY/TRANSFERS Supine-sit: I Sit-stand: S Stand-sit: S GAIT Assistive Device: FWW Weight bearing: Full Assist: S Distance: 25' ASSESSMENT: Patient tolerated session without complaint. She feels she is back to her functional baseline at this time. PLAN: Patient to discharge to home later today, per provider, with recommended follow up with outpatient PT versus PT. TREATMENT CODE/TIME: 8 minutes; [id number] (11:17)
[2021-02-28] MEDS: Enoxaparin 30 MG/0.3 ML SYR SC (13:52)
--- NOTE | 2021-02-28 16:07 | PDOC.CMDIS ---
- If Service Date Differs Date of service: 02/28/21 Time of Service: 16:07 LACE Index Scoring Tool - Questions: Length of Stay (in days): 4 - 6 Acuity (Admit via E.D.?): Yes Comorbidities: Congestive Heart Failure E.D. Visits: 2 - Answers: Total Score: 11 Risk of Readmission: High Risk Care Management Discharge Reason for Hospitalization: hyperkalemia, minnie Discharge Plan: Paige will be discharged home to her hotel room at the [facility]. She will resume outpatient PT and see her PCP Dr. Flores on 03/05/21. She will also follow up with Amanda at [facility]. Paige will transport via [facility] w/c van. Patient/Family Education Needs: Review of discharge instructions and plan, ask me three.
--- NOTE | 2021-03-01 09:17 | PT.INDS ---
Date of service: 03/01/21 Time of Service: 09:17 PT Notes Visit Reasons: Hyperkalemia, Acute Kidney Injury Physical Therapy Inpatient Discharge Summary Date: 03/01/21 Dates of Setrvice: 02/27/2021 through 02/28/2021 This is a clinical summary of care provided for the duration of dates listed above. No charge was made in the completion of this documentation. Referring Doctor: Yelitza Busch PT Orders: PT CONSULT: Evaluate and Treat Precautions: Standard Patient Profile/Admitting Diagnosis: Orders received for this 45 year old female who was brought to the hospital with the diagnosis of weakness and diarrhea. She has recently moved to [place] after from her who lives in [place]. SHe has been staying at the [facility] in [place] but recently started having a change in bowel habits with progressive weakness. She was brought to the hospital and accepted for admission. Medical History Anxiety disorder Cerebral palsy Chronic anemia Heart failure with preserved ejection fraction Osteoarthritis of right hip joint due to dysplasia Polycystic ovaries Rhabdomyolysis Scoliosis (and kyphoscoliosis), idiopathic Toxic metabolic encephalopathy (~11/26/20) Surgical History S/P spinal fusion Status post Girdlestone procedure Social History/Home Situation: Current resident of the [facility] in [place] Equipment Owned/DME: FWW, wheel chair and shower stool Subjective: NT. See most recent COURT INTERPRETER notes. Objective: NT. See most recent COURT INTERPRETER notes. Mental Status: NT. See most recent COURT INTERPRETER notes. Pain: NT. See most recent COURT INTERPRETER notes. ROM: Right Upper Extremity: WFL Left Upper Extremity: WFL Right Lower Extremity: WFL Limited dorsiflexion as the foot is stable in position of equinas Left Lower Extremity: WFL, Limited dorsiflexion as the foot is stable in position of equinas, in standing there is slight increase inversion Strength: Right Upper Extremity: Globally 4+/5 Left Upper Extremity: Globally 4+/5 Right Lower Extremity: Globally 4+/5 Left Lower Extremity: Globally 4+/5 Bed Mobility/Transfers: Patient requires min assist for transfer from supine to sit on edge of table Sit to stand: supervision Stand to sit: supervision Gait: 25 feet with FWW requiring supervision. She ambulates with use of a lead step through the left and a step to gait pattern with the right meeting the left but no advancement from this. Balance: Static Sitting: Normal Dynamic Sitting: Normal Static Standing: Good Dynamic Standing: Good ASSESSMENT: Patient demonstrates imrovement in funcitonal mobility level during this episode of care. Goals: Goals X1 week 1. Supine-Sit Supervision MET 2. Sit-Supine Supervision MET 3. Sit-Stand Supervision NOT MET 4. Stand-Sit Supervision NOT MET 5. Bed-Chair Supervision NOT MET 6. Gait With Supervision and use of FF walker up to 100 feet NOT MET DISCHARGE RECOMMENDATIONS: To her prior living arrangement at the [facility] in [place] once medically stable TREATMENT CODE/TIME: NC Thank you for the opportunity to participate in the care of this patient. Arlet Bolton PT, DPT, CLT [facility] [place], [place]
== END 2021-02-28 15:01 | disposition home or self-care (01) | DRG 683 ==
LOC: ER 18:24 → MS 18:27
PROVIDERS: Family Medicine; Nurse Practitioner Acute Care; Physician Assistant; Admitting Provider Family Medicine; Emergency Provider Registered Nurse Emergency; Visit Provider Family Medicine
DX: N17.9 Acute kidney failure, unspecified (principal); G80.1 Spastic diplegic cerebral palsy; I50.30 Unspecified diastolic (congestive) heart failure; K52.9 Noninfective gastroenteritis and colitis, unspecified; E86.0 Dehydration; D64.9 Anemia, unspecified; R53.1 Weakness; E87.5 Hyperkalemia; F41.9 Anxiety disorder, unspecified; E28.2 Polycystic ovarian syndrome; M41.20 Other idiopathic scoliosis, site unspecified; Z20.822 Contact with and (suspected) exposure to COVID-19; I10 Essential (primary) hypertension
CPT/HCPCS: 36415; 80048; 80053; 87493; 87505; 87635; 93005; 96360; 97162; 97530; 99285; 70450; 71046; 73502; 74019; 81003; 81015; 83540; 83550; 83735; 84443; 84484; 85025; 85045; 93010; 94660; 99223; 99233; 99239; J1650; J8597

== ENCOUNTER 2021-04-10 09:27 | Inpatient (IN) | payer MEDICAID, SELFPAY ==
[2021-04-10] VITALS (56 sets, daily range): BP systolic 150–182; BP diastolic 83–100; PULSE 118–146; RESP 13–43; TEMP 36.6–37.7; O2SAT 87–99
--- NOTE | 2021-04-10 09:24 | W.ED.GENAD ---
Discharge Plan Disposition Patient Disposition: [facility] Condition: Fair Discharge Details Clinical Impression: Nausea, vomiting and diarrhea, Tachycardia Admit Date/Time: 04/10/21 13:21 Admit Provider: Danilo Sood Attending Provider: Danilo Sood Primary Care Provider: Unknown,Unknown ED Provider: Ladonna Alcantara Discharge Data Discharge Date/Time-TO BE ENTERED AT DEPARTURE: 04/10/21 15:08 Medical Decision Making 45-year-old female with a history of CP, anxiety, heart failure with preserved ejection fraction, osteoarthritis, polycystic ovaries, scoliosis presents with vomiting and diarrhea for 24 hours. Admitted here twice last month, first for aspiration pneumonia, and second for gastroenteritis and YOGESH. Heart rate tachycardic into the 130s, appears sinus on monitor. Blood pressure hypertensive. Oxygen saturation 80s to 90s on room air, appears to be in correlation with dry heaving episodes. She was noted to be 89% on room air when not dry heaving and placed on 2 L nasal cannula which increased her O2 sat to 96%. She states she took 8 mg of Zofran 3 hours ago without relief. Difficulty obtaining an IV on arrival and patient actively dry heaving. A 4 mg Zofran ODT ordered. She continued to have dry heaving an IV placed and a dose of Phenergan IV and Valium IV ordered. Labs and imaging reviewed. White blood cell count 15. Hemoglobin 10. Creatinine 1.4, GFR 40, showing decreased renal function compared to labs prior to discharge on last admission with a creatinine of 0.8 and a GFR greater than 60. Urine sample not not obtained. Patient initially had declined straight cath urine and tried to give a urine sample but urinated twice on the bed. We will continue IV fluid hydration. Patient is agreeable to straight cath urine. Chest x-ray negative. Patient has had continued nausea and dry heaving. Will admit for intractable nausea and vomiting for continued IV hydration, IV medication, and recheck of labs in the a.m. She was also unable to give a stool sample, so consider testing for C. difficile once stool available. Case discussed with hospitalist who accepts patient for admission. Medical Records Medical records reviewed: Yes I reviewed the patient's medical records. Imaging Data Radiologic Study: Radiologist's impression: XR Chest Exam date and time: 04/10/2021 11:06 AM Age: 45 years old Clinical indication: Other: Tachycardia, hypoxia, rule out acute disease, history of recent aspiration pneumonia; Additional info: Tachycardia, hypoxia, rule out acute disease, history of recent aspiration pneumonia TECHNIQUE: Imaging protocol: XR of the chest. Views: 1 view. COMPARISON: CR XR CHEST 2V PA LATERAL 02/24/2021 4:33 PM FINDINGS: Patient rotation limits evaluation. Lungs: There is no consolidation. Pleural spaces: No pneumothorax. No sizable pleural effusion. Heart/Mediastinum: Cardiomediastinal silhouette similar/stable to prior. Bones/joints: Deformity of the left 6 rib redemonstrated and similar. No acute displaced fracture. Other findings: Surgical changes project over the chest. IMPRESSION: No acute cardiopulmonary findings. Lab Data Lab results reviewed: Yes I reviewed the patient's lab results. HPI General Mode of arrival: EMS. Date/Time Provider Initiated Documentation: 04/10/21 10:18. Limitations to Documentation: physical limitation. Information obtained by: patient and family. HPI Narrative: Patient is a 45-year-old female CP, anxiety, heart failure with preserved ejection fraction, osteoarthritis, polycystic ovaries, scoliosis presents for vomiting and diarrhea for the past 24 hours. Patient states she has been vomiting multiple times which is mainly been bile and spit up. She states she last took 8 mg of Zofran ODT almost 3 hours ago. She states the diarrhea has been watery and brown. She denies any hematemesis, hematochezia or melena. She denies any known fever, cough, chest pain, shortness of breath, abdominal pain or urinary symptoms. Patient was admitted here twice last month, first for aspiration pneumonia treated with antibiotics, and then for acute kidney injury in the setting of gastroenteritis. Patient states her symptoms completely resolved after discharge and she had been fine until 24 hours ago. She states she is not currently on antibiotics. She states she has received 1 Covid vaccine and is due for her second dose this week. Denies any known recent exposure to Covid. Related Data Home Medications Medication Instructions Recorded Confirmed citalopram 20 mg PO DAILY 02/16/21 04/10/21 methocarbamol 750 mg PO QID PRN 02/16/21 04/10/21 ondansetron HCl [Zofran] 4 mg PO Q8H PRN PRN 02/16/21 04/10/21 Bio-K plus 1 cap PO DAILY #30 cap 02/20/21 04/10/21 ferrous sulfate 325 mg PO BID #60 tab 02/20/21 04/10/21 folic acid 1 mg PO DAILY #30 tab 02/20/21 04/10/21 amlodipine 5 mg PO DAILY #30 tab 02/28/21 04/10/21 baclofen 20 mg PO QID 04/10/21 04/10/21 gabapentin 300 mg PO TID 04/10/21 04/10/21 gabapentin 400 mg PO TID 04/10/21 04/10/21 tizanidine 6 mg PO Q6H PRN PRN 04/10/21 04/10/21 Previous Rx's Medication Instructions Recorded Bio-K plus 1 cap PO DAILY #30 cap 02/20/21 ferrous sulfate 325 mg PO BID #60 tab 02/20/21 folic acid 1 mg PO DAILY #30 tab 02/20/21 amlodipine 5 mg PO DAILY #30 tab 02/28/21 Allergies Allergy/AdvReac Type Severity Reaction Status Date / Time amoxicillin Allergy Unverified 04/10/21 12:38 morphine Allergy Unverified 04/10/21 12:38 bees Allergy Uncoded 04/10/21 12:38 pine nuts Allergy Uncoded 04/10/21 12:38 General ESTEFANY: 3 Review of Systems All systems reviewed & are unremarkable except as noted in HPI and below Constitutional Constitutional: Reports as per HPI, Denies chills and Denies fever(s) Eyes Eyes: Denies blurry vision ENT Ears, Nose, Mouth, and Throat: Denies dizziness, Denies sore throat and Denies throat swelling Cardiovascular Cardiovascular: Denies chest pain and Denies dyspnea Respiratory Respiratory: Denies cough and Denies dyspnea Gastrointestinal Gastrointestinal: Denies abdominal pain, Reports diarrhea and Reports vomiting Genitourinary Genitourinary: Denies hematuria and Denies dysuria Musculoskeletal Musculoskeletal: Denies back pain and Denies numbness Integumentary/Breasts Skin/Breast: Denies lesions and Denies rash Neurologic Neurologic: Denies dizziness, Denies localized weakness and Denies numbness Allergic/Immunologic Allergic/Immunologic: Denies throat swelling [facility] Medical History (Updated 04/11/21 @ 17:31 by Ladonna Alcantara DO) Anxiety disorder Cerebral palsy Chronic anemia Heart failure with preserved ejection fraction Hyperkalemia Osteoarthritis of right hip joint due to dysplasia Polycystic ovaries Rhabdomyolysis Scoliosis (and kyphoscoliosis), idiopathic Toxic metabolic encephalopathy (~11/26/20) Surgical History S/P spinal fusion Status post Girdlestone procedure Social History Smoking/Tobacco Use Status: Never Smoking risk assessment performed?: Yes Alcohol Intake: never Drug use: Never Substance use type: does not use Do you feel safe at home: Yes Do you feel safe in your relationship?: Yes Exam Const General: cooperative and no acute distress HENMT Head: normal to inspection Face and sinus: normal facial exam Eyes General: appearance normal, both eyes and all related structures EOM: EOM intact bilaterally Neck Neck: normal visual inspection and No submandibular swelling Lymphatic: no lymphadenopathy noted Chest Chest: normal inspection of the chest and no tenderness Resp Effort & Inspection: normal respiratory effort and able to speak in complete sentences Auscultation: clear to auscultation bilaterally Cardio Rate: tachycardic Rhythm: regular rhythm GI Inspection: normal to inspection Palpation: soft, not firm, not rigid and nontender Auscultation: normal bowel sounds Skin General skin exam: no rashes or lesions noted Neuro General: patient alert, patient awake and patient oriented x3 Cognition: normal cognition Speech: speech normal Motor: muscle tone normal throughout Sensory Exam: no sensory deficits noted Extrem General: full ROM, capillary refill normal, no calf tenderness bilaterally, no edema and other (b/l lower>upper extremities contracted 2/2 CP) Psych Appearance: grossly normal Mental Status: mental status grossly normal Speech and Movement: speech and movement normal Affect: normal affect
[2021-04-10] MEDS: diazePAM 10 MG/2 ML SYR 2 MG IVP (09:58)
[2021-04-10] MEDS: Ondansetron O.D.T. 4 MG TABEF (09:59)
[2021-04-10] MEDS: Normal Saline 1,000 ML 1000 ML IV ×2 (09:59→12:24)
[2021-04-10 10:18] LABS: Source Nasal/Nares
[2021-04-10 10:24] LABS: Abs Immature Grans 0.06 10^3/uL (0.0-0.06); Absolute Basophil Count 0.03 10^3/uL (0.0-0.2); Absolute Lymphocyte Count 0.77 10^3/uL (1.2-3.4); Absolute Monocyte Count 0.38 10^3/uL (0.1-0.8); Absolute Neutrophil Count 14.12 10^3/uL (1.2-6.7); Basophils % 0.2; HCT 36.6 % (36.0-46.0); HGB 10.7 g/dL (11.2-15.7); Immature Grans % 0.4; MCHC 29.2 % (32.0-36.0); MCV 82.1 fL (80-95); MPV 12.6 fL (8.0-11.0); Monocytes % 2.5; Neutrophils % 91.9; Nucleated RBC 0 %; Platelet Count 306 10^3/uL (130-400); RBC 4.46 10^6/uL (3.93-5.22); RDW 18.5 % (11.7-14.6); RDW-SD 55.3 fL; WBC 15.36 10^3/uL (4.4-10.8)
[2021-04-10] MEDS: LORazepam 2 MG/ML VIAL 1 MG IVP (10:40)
[2021-04-10] MEDS: Prochlorperazine 10 MG/2 ML VIAL IVP (10:40)
--- NOTE | 2021-04-10 11:00 | DI.RAD_ITS ---
Exam(s) XR PORTABLE CHEST AP EXAM: XR PORTABLE CHEST AP CLINICAL HISTORY: Tachycardia, hypoxia, rule out acute disease TECHNIQUE: COMPARISON: CR,XR XR CHEST 2V PA LATERAL from 02/24/2021 FINDINGS: Prior spinal surgery noted. Heart is not enlarged. Lungs are grossly clear and well expanded. IMPRESSION: No evidence of acute process. RADIATION DOSE DELIVERED: Total DLP
[2021-04-10 11:13] LABS: COVID-19 PCR Negative (Negative)
--- NOTE | 2021-04-10 11:54 | DI.VRAD_ITS ---
PROCEDURE INFORMATION: Exam: XR Chest Exam date and time: 04/10/2021 11:06 AM Age: 45 years old Clinical indication: Other: Tachycardia, hypoxia, rule out acute disease, history of recent aspiration pneumonia; Additional info: Tachycardia, hypoxia, rule out acute disease, history of recent aspiration pneumonia TECHNIQUE: Imaging protocol: XR of the chest. Views: 1 view. COMPARISON: CR XR CHEST 2V PA LATERAL 02/24/2021 4:33 PM FINDINGS: Patient rotation limits evaluation. Lungs: There is no consolidation. Pleural spaces: No pneumothorax. No sizable pleural effusion. Heart/Mediastinum: Cardiomediastinal silhouette similar/stable to prior. Bones/joints: Deformity of the left 6 rib redemonstrated and similar. No acute displaced fracture. Other findings: Surgical changes project over the chest. IMPRESSION: No acute cardiopulmonary findings. Dictated and Authenticated by: Azam Peguero MD. Ordering:MERARI Dougherty MD
[2021-04-10 12:20] LABS: ALT 26 U/L (14-59); AST 22 U/L (15-37); Albumin 4.1 g/dL (3.4-5.0); Alkaline Phosphatase 90 U/L (46-116); Anion Gap 11.8 mmol/L (3-11); BUN 13 mg/dL (7-18); Bilirubin, Total 0.3 mg/dL (0.2-1.0); CO2 25.2 mmol/L (21.0-32.0); CREATININE 1.4 mg/dL (0.55-1.02); Calcium 9.3 mg/dL (8.5-10.1); Chloride 107 mmol/L (98-107); Estimated GFR 40.66 (mL/min/1.73m2); Glucose 137 mg/dL (74-106); Lipase 60 U/L (73-393); Potassium 3.7 mmol/L (3.5-5.1); Sodium 144 mmol/L (136-145); Total Protein 8.8 g/dL (6.4-8.2)
[2021-04-10] MEDS: Metoclopramide 10 MG/2 ML VIAL IVP (12:47)
[2021-04-10 13:33] LABS: Bilirubin Negative (Negative); Blood Trace-intact (Negative); Clarity Sl Cloudy (Clear); Glucose Negative (Negative); Ketones 40 mg/dL (Negative); Leukocyte Esterase Negative (Negative); Nitrite Negative (Negative); Urobilinogen 0.2 EU/dL (Up TO 0.2)
[2021-04-10 13:41] LABS: WBC 0-2 HPF (0-5)
[2021-04-10 13:42] LABS: Bacteria Rare HPF (Negative); C & S Indicated? No; Casts 0-2 Hyaline LPF (Negative); Crystals Negative HPF (Negative); Mucus Trace (Negative)
[2021-04-10] MEDS: Ondansetron 4 MG/2 ML VIAL IVP (14:55)
[2021-04-10] MEDS: Lactated Ringers 1,000 ML 75 ML IV (16:19)
[2021-04-10] MEDS: Baclofen 10 MG TAB 20 MG PO ×2 (16:23→19:44)
[2021-04-10] MEDS: Doxycycline Hyclate 100 MG CAP PO (16:24)
[2021-04-10] MEDS: Azithromycin 250 MG TAB 500 MG PO (16:25)
--- NOTE | 2021-04-10 16:54 | NUR.NOTE ---
Nursing Note: patient has requested all 4 rails be put up for her safety
[2021-04-10] MEDS: Prochlorperazine 10 MG/2 ML VIAL 5 MG IVP ×2 (17:59→23:01)
--- NOTE | 2021-04-10 18:15 | W.PM.HP.N ---
Date of service: 04/10/21 Time of Service: 18:15 Assessment and Plan Assessment and plan (1) Leukocytosis: Start date: 04/10/21 Start time: 18:37 Status: Acute Assessment and plan: 1500 wbc could be due to dehydration from nausea and vomiting. will treat with mulitple antiemetics. NPO until able to tolerate food. imaging with no findings will continue hydration Qualifiers: Leukocytosis type: bandemia Qualified Code(s): D72.825 - Bandemia (2) Nausea, vomiting and diarrhea: Start date: 04/10/21 Start time: 18:37 Status: Acute Assessment and plan: as above presented with this 2 days prior to admission (3) Tachycardia: Start date: 04/10/21 Start time: 18:37 Status: Chronic Assessment and plan: Could be due to dehydration will monitor and add bb if not corrected with hydration (4) Hypertension: Start date: 04/10/21 Start time: 18:37 Status: Chronic Assessment and plan: continue amlodipine and monitor Qualifiers: Hypertension type: primary hypertension Qualified Code(s): I10 - Essential (primary) hypertension (5) YOGESH (acute kidney injury): Start date: 04/10/21 Start time: 18:37 Status: Acute Assessment and plan: Due to dehydration will give IVF and avoid nehrotoxic medications. discussed with Dr. Sood History of Present Illness History of Present Illness Chief Complaint: Vomiting, diarrhea, dehydration Narrative: 45 y.o female with PMH of HTN, anxiety, heart failure with preserved ejection fraction, osteoarthritis, polycystic ovaries, scoliosis presents for vomiting and diarrhea for the past 24 hours. Patient states she has been vomiting multiple times which is mainly been bile and spit up. Labs in the ED reveal leukocytosis of 15 with ANC of 14, YOGESH 1.4, otherwise unremarkable, imaging with no acute findings. This could be from dehydration. She has been asked to be admitted to hospitalist for further management. Will place on IV hydration with LR. antiemetic pain management and clears. If she can not tolerate clears will make npo. Review of Systems All systems reviewed & are unremarkable except as noted in HPI and below PFSH Medical History (Updated 04/11/21 @ 20:42 by Naomie Dey NP) Anxiety disorder Cerebral palsy Chronic anemia Heart failure with preserved ejection fraction Hyperkalemia Osteoarthritis of right hip joint due to dysplasia Polycystic ovaries Rhabdomyolysis Scoliosis (and kyphoscoliosis), idiopathic Toxic metabolic encephalopathy (~11/26/20) Surgical History S/P spinal fusion Status post Girdlestone procedure Social History Smoking/Tobacco Use Status: Never Smoking risk assessment performed?: Yes Alcohol Intake: never Drug use: Never Substance use type: does not use Do you feel safe at home: Yes Do you feel safe in your relationship?: Yes Meds Allergies and Home Medications Allergies Allergy/AdvReac Type Severity Reaction Status Date / Time amoxicillin Allergy Unverified 04/10/21 12:38 morphine Allergy Unverified 04/10/21 12:38 bees Allergy Uncoded 04/10/21 12:38 pine nuts Allergy Uncoded 04/10/21 12:38 Home Medications Medication Instructions Recorded Confirmed Type citalopram 20 mg PO DAILY 02/16/21 04/10/21 History methocarbamol 750 mg PO QID PRN 02/16/21 04/10/21 History ondansetron HCl [Zofran] 4 mg PO Q8H PRN PRN 02/16/21 04/10/21 History Bio-K plus 1 cap PO DAILY #30 cap 02/20/21 04/10/21 Rx ferrous sulfate 325 mg PO BID #60 tab 02/20/21 04/10/21 Rx folic acid 1 mg PO DAILY #30 tab 02/20/21 04/10/21 Rx amlodipine 5 mg PO DAILY #30 tab 02/28/21 04/10/21 Rx baclofen 20 mg PO QID 04/10/21 04/10/21 History gabapentin 300 mg PO TID 04/10/21 04/10/21 History gabapentin 400 mg PO TID 04/10/21 04/10/21 History tizanidine 6 mg PO Q6H PRN PRN 04/10/21 04/10/21 History Exam Const General: cooperative, comfortable and no acute distress Nutritional Appearance: obese Orientation: alert, awake and oriented x3 HENMT Head: normal to inspection, no palpable skull fracture, normocephalic and atraumatic Mouth: moist mucous membranes abnormal Eyes Eyelids: eyelids normal Pupils: PERRL Neck Neck: normal visual inspection and no JVD Lymphatic: no lymphadenopathy noted Resp Effort & Inspection: normal respiratory effort Auscultation: clear to auscultation bilaterally Cardio Jugular venous pressure: no JVD Rate: tachycardic Rhythm: regular rhythm Heart Sounds: S1 normal GI Auscultation: normal bowel sounds General: No CVA tenderness and deferred Skin General skin exam: no rashes or lesions noted Neuro General: patient alert, patient awake and patient oriented x3 Cognition: normal cognition Speech: speech normal Gait: normal gait Extrem General: normal to inspection, full ROM and no clubbing, cyanosis or edema Results Labs Result diagrams: 04/11/21 07:11 04/11/21 07:11 Labs: Laboratory Results - last 24 hr 04/10/21 04/10/21 04/10/21 09:50 09:50 10:00 WBC 15.36 H RBC 4.46 Hgb 10.7 L Hct 36.6 MCV 82.1 MCH 24.0 L MCHC 29.2 L RDW 18.5 H Plt Count 306 MPV 12.6 H Immature Gran % 0.4 Neutrophils % 91.9 Lymphocytes % 5.0 Monocytes % 2.5 Eosinophils % 0.0 Basophils % 0.2 Nucleated RBC % 0 Absolute Neutrophils 14.12 H Absolute Lymphocytes 0.77 L Absolute Monocytes 0.38 Absolute Eosinophils 0.00 Absolute Basophils 0.03 Sodium Cancelled Potassium Cancelled Chloride Cancelled Carbon Dioxide Cancelled Anion Gap Cancelled BUN Cancelled Creatinine Cancelled Estimated GFR/1.73 m2 Cancelled Glucose Cancelled Calcium Cancelled Total Bilirubin Cancelled AST Cancelled ALT Cancelled Alkaline Phosphatase Cancelled Total Protein Cancelled Albumin Cancelled Lipase Cancelled Urine Color Urine Clarity Urine pH Ur Specific Living[place] Urine Protein Urine Ketones Urine Blood Urine Nitrite Urine Bilirubin Urine Urobilinogen Ur Leukocyte Esterase Urine RBC Urine WBC Ur Epithelial Cells Urine Crystals Urine Bacteria Urine Casts Urine Mucus Ur Culture Indicated? Urine Glucose COVID-19 Source Nasal/Nares SARS-CoV-2 (PCR) Negative 04/10/21 04/10/21 12:00 13:28 WBC RBC Hgb Hct MCV MCH MCHC RDW Plt Count MPV Immature Gran % Neutrophils % Lymphocytes % Monocytes % Eosinophils % Basophils % Nucleated RBC % Absolute Neutrophils Absolute Lymphocytes Absolute Monocytes Absolute Eosinophils Absolute Basophils Sodium 144 Potassium 3.7 Chloride 107 Carbon Dioxide 25.2 Anion Gap 11.8 H BUN 13 Creatinine 1.4 H Estimated GFR/1.73 m2 40.66 Glucose 137 H Calcium 9.3 Total Bilirubin 0.3 AST 22 ALT 26 Alkaline Phosphatase 90 Total Protein 8.8 H Albumin 4.1 Lipase 60 Urine Color Yellow Urine Clarity Sl Cloudy Urine pH 6.0 Ur Specific [place] 1.020 Urine Protein Negative Urine Ketones 40 H Urine Blood Trace-intact H Urine Nitrite Negative Urine Bilirubin Negative Urine Urobilinogen 0.2 Ur Leukocyte Esterase Negative Urine RBC 3-5 H Urine WBC 0-2 Ur Epithelial Cells Urine Crystals Negative Urine Bacteria Rare Urine Casts 0-2 Hyaline Urine Mucus Trace Ur Culture Indicated? No Urine Glucose Negative COVID-19 Source SARS-CoV-2 (PCR) Last Vital Signs Temp 37.5 C 04/10/21 16:56 Pulse 130 H 04/10/21 16:56 Resp 18 04/10/21 16:32 BP 150/83 H 04/10/21 16:32 Pulse Ox 98 04/10/21 16:32
[2021-04-10] MEDS: Trimethobenzamide 200 MG/2 ML VIAL IM (19:39)
[2021-04-10] MEDS: cefTRIAXone 1 GM/50 ML BAG IVPB (19:41)
[2021-04-10] MEDS: Gabapentin 300 MG CAP 600 MG PO (19:44)
[2021-04-10] MEDS: Ascorbic Acid 500 MG TAB PO (19:44)
[2021-04-10] MEDS: Normal Saline Flush 10 ML SYR IVP ×2 (19:44→23:06)
[2021-04-10] MEDS: Ferrous Sulfate 325 MG TAB PO (19:44)
[2021-04-10] MEDS: DOXYCYCLINE 100 MG in Normal Saline 100 ML IVPB (20:39)
--- NOTE | 2021-04-11 02:15 | DI.RAD_ITS ---
Exam(s) XR ABDOMEN FLAT UPRIGHT EXAM: XR ABDOMEN FLAT UPRIGHT CLINICAL HISTORY: Vomiting. TECHNIQUE: 2D digital imaging was performed. COMPARISON: CR XR ABDOMEN FLAT UPRIGHT from 02/25/2021 FINDINGS: Multilevel spinal fusion. Also fixation hardware in the left humerus. No obvious bowel obstruction or free air. Bowel gas pattern is nonspecific. Right hip dysplasia with shallow acetabulum and absence of the right femoral head and neck. Left hip unremarkable. No acute fractures evident. Sacroiliac joints unremarkable. IMPRESSION: Nonspecific bowel gas pattern. Spinal fusion. Other osseous findings as above. DATA REPOSITORY: RADIATION DOSE DELIVERED:
--- NOTE | 2021-04-11 03:36 | DI.VRAD_ITS ---
PROCEDURE INFORMATION: Exam: XR Abdomen Exam date and time: 04/11/2021 2:20 AM Age: 45 years old Clinical indication: Nausea and vomiting; Prior surgery; Surgery date: 6+ months; Surgery type: Back, gallbladder TECHNIQUE: Imaging protocol: XR of the abdomen. Views: 2 Views. Upright and supine views. COMPARISON: CR XR ABDOMEN FLAT UPRIGHT 02/25/2021 2:23 PM FINDINGS: Lungs: The bases of the lungs show coarse interstitial alveolar densities. Inflammatory or infectious process is not excluded. Gastrointestinal tract: There is a nonspecific bowel gas pattern. No evidence of bowel obstruction. Intraperitoneal space: There is no free intraperitoneal air. Organs: Surgical clips right upper quadrant consistent with cholecystectomy. The organs are unremarkable. Bones/joints: Spinal fusion changes present within the thoracolumbar spine and scoliosis convex to left. Right hip dysplasia changes with right hip subluxation and absence of the femoral head. Irregularity of the right 11th rib. The spine, sacroiliac joints, and hip joints show no evidence of fracture or other acute processes. Surgical plate overlying the left upper extremity. Soft tissues: There are no soft tissue masses or calcifications. IMPRESSION: 1. No acute abdominal process identfied. 2. The bases of the lungs show coarse interstitial alveolar densities. Inflammatory or infectious process is not excluded. Dictated and Authenticated by: Levy Knox MD. Ordering:OTF Saunders MD
[2021-04-11 04:06] VITALS: BP 149/83; PULSE 123; RESP 18; TEMP 37.5; O2SAT 99
[2021-04-11] MEDS: Prochlorperazine 10 MG/2 ML VIAL 5 MG IVP ×2 (04:24→21:23)
[2021-04-11] MEDS: Normal Saline Flush 10 ML SYR IVP ×3 (04:25→21:24)
[2021-04-11 05:11] VITALS: O2SAT 99
[2021-04-11] MEDS: tiZANidine 4 MG TABLET 6 MG PO (05:43)
[2021-04-11 07:42] VITALS: BP 150/91; PULSE 107; RESP 19; TEMP 37.5; O2SAT 98
[2021-04-11 07:56] LABS: Abs Immature Grans 0.06 10^3/uL (0.0-0.06); Absolute Basophil Count 0.01 10^3/uL (0.0-0.2); Absolute Lymphocyte Count 0.74 10^3/uL (1.2-3.4); Absolute Monocyte Count 0.33 10^3/uL (0.1-0.8); Absolute Neutrophil Count 5.97 10^3/uL (1.2-6.7); Basophils % 0.1; HCT 34.6 % (36.0-46.0); HGB 10.5 g/dL (11.2-15.7); Immature Grans % 0.8; Lymphocytes % 10.4; MCH 24.2 pg (27.0-33.0); MCHC 30.3 % (32.0-36.0); MCV 79.9 fL (80-95); MPV 12.2 fL (8.0-11.0); Monocytes % 4.6; Neutrophils % 84.1; Nucleated RBC 0 %; Platelet Count 262 10^3/uL (130-400); RBC 4.33 10^6/uL (3.93-5.22); RDW 18.7 % (11.7-14.6); RDW-SD 54.4 fL
[2021-04-11 08:05] LABS: Anion Gap 18.9 mmol/L (3-11); BUN 6 mg/dL (7-18); CO2 22.1 mmol/L (21.0-32.0); CREATININE 1.3 mg/dL (0.55-1.02); Calcium 9.9 mg/dL (8.5-10.1); Chloride 107 mmol/L (98-107); Estimated GFR 44.29 (mL/min/1.73m2); Glucose 95 mg/dL (74-106); Sodium 148 mmol/L (136-145)
[2021-04-11 08:06] LABS: Magnesium 1.6 mg/dL (1.8-2.4)
[2021-04-11] MEDS: DOXYCYCLINE 100 MG in Normal Saline 100 ML IVPB ×2 (08:31→19:57)
[2021-04-11] MEDS: Gabapentin 300 MG CAP 600 MG PO ×3 (08:32→19:57)
[2021-04-11] MEDS: Folic Acid 1 MG TAB PO (08:32)
[2021-04-11] MEDS: Ferrous Sulfate 325 MG TAB PO ×2 (08:32→19:57)
[2021-04-11] MEDS: Baclofen 10 MG TAB 20 MG PO ×4 (08:32→19:57)
[2021-04-11] MEDS: amLODIPine 5 MG TAB PO (08:32)
[2021-04-11] MEDS: Ascorbic Acid 500 MG TAB PO ×2 (08:32→19:57)
[2021-04-11] MEDS: Lactated Ringers 1,000 ML 75 ML IV (08:36)
[2021-04-11] MEDS: Potassium Chloride Liquid 20 MEQ PKT 40 MEQ PO (11:16)
[2021-04-11] MEDS: MAGNESIUM SULFATE 4 GM/100 ML BAG IVPB (11:16)
--- NOTE | 2021-04-11 16:16 | INITIAL_ITS ---
- If Service Date Differs Date of service: 04/11/21 Time of Service: 16:16 Care Management Initial Assess REASON FOR HOSPITALIZATION:: vomiting and diarrhea, tachycardia, dehydration PAST MEDICAL HISTORY/PAST SURGICAL HISTORY:: Medical History. Anxiety disorder. Cerebral palsy. Chronic anemia. Heart failure with preserved ejection fraction. Hyperkalemia. Osteoarthritis of right hip joint due to dysplasia. Polycystic ovaries. Rhabdomyolysis. Scoliosis (and kyphoscoliosis), idiopathic. Toxic metabolic encephalopathy (~11/26/20). Surgical History. S/P spinal fusion. Status post Girdlestone procedure PREVIOUS FUNCTIONAL STATUS/SOCIAL/FAMILY SUPPORTS:: Paige is currently residing at a hotel in [place], [place]. Her lives in [place], [place]. She reported that she cannot live with him because his home is not accessible to her. She uses a w/c and walker at baseline. She receives support from her , friends, and a case checker, Amanda at [facility]. CURRENT FUNCTIONAL STATUS:: Paige was sleeping when CM attempted to meet with her. CM did not wake her, as she is not ready for discharge today. She had an abdomen xray today, which showed 'no obvious bowel obstruction or free air'. CM will continue to follow. ADVANCE DIRECTIVES:: None on file. Has patient been provided with info about the portal/API?: Yes Did the patient sign up for the portal?: No CODE STATUS:: Full Code INSURANCE COVERAGE / FINANCIAL ISSUES:: [employer] plan- [facility] CURRENT HOME/COMMUNITY SERVICES/EQUIPMENT:: Paige has a manual wheel chair, a 4WW and a shower chair. She has MOW and a case checker, Amanda, from [facility]. PRIMARY CARE PHYSICIAN:: Meet Chaney, [facility] ([place], [place]) POTENTIAL DISCHARGE NEEDS:: follow up appointments PATIENT/FAMILY EDUCATION NEEDS:: Review discharge instructions regarding activity levels and medications, discussion of self care needs and goals of care. ANTICIPATED BARRIERS TO DISCHARGE:: None identified. TRANSPORTATION:: RCT w/c van PLAN:: Paige will return home, to her hotel room at the [facility], once she is medically cleared. She will follow up with her PCP and discharge plan of care. She will transport via RCT w/c van. CM will continue to follow.
[2021-04-11 19:49] VITALS: BP 166/98; PULSE 112; RESP 19; TEMP 36; O2SAT 98
--- NOTE | 2021-04-11 20:44 | W.PM.PROGNOT ---
Date of Service Date of service: 04/11/21 Time of Service: 15:00 Assessment and Plan Assessment and plan (1) Leukocytosis: Start date: 04/11/21 Start time: 15:00 Status: Acute Assessment and plan: 1500 wbc could be due to dehydration from nausea and vomiting. will treat with mulitple antiemetics. NPO until able to tolerate food. imaging overnight found to have questionable infectious process, started on ceftriaxone and doxy Qualifiers: Leukocytosis type: bandemia Qualified Code(s): D72.825 - Bandemia (2) CAP (community acquired pneumonia): Start date: 04/11/21 Start time: 15:00 Status: Acute Assessment and plan: likely the cause of leukocytosis, question aspiration pneumonia with the vomiting however her leukocytosis have normalized. BC ordered pending. Qualifiers: Laterality: unspecified laterality Qualified Code(s): J18.9 - Pneumonia, unspecified organism (3) Nausea, vomiting and diarrhea: Start date: 04/11/21 Start time: 15:00 Status: Acute Assessment and plan: continues to have nausea on 4 different antiemetics to help. Will keep npo until able to tolerate food (4) Tachycardia: Start date: 04/11/21 Start time: 13:00 Status: Chronic Assessment and plan: Continues to have elevated HR and BB despite IVF hydration and CCB BB added 12.5 mg BID will increase as needed (5) Hypertension: Start date: 04/11/21 Start time: 13:00 Status: Chronic Assessment and plan: continue amlodipine and monitor added bb as above Qualifiers: Hypertension type: primary hypertension Qualified Code(s): I10 - Essential (primary) hypertension (6) Hypokalemia: Start date: 04/11/21 Start time: 15:00 Status: Acute Assessment and plan: Replete with po supplementation and monitor labs (7) Hypomagnesemia: Start date: 04/11/21 Start time: 15:00 Status: Acute Assessment and plan: repleted with IV supplementation repeat labs in am (8) YOGESH (acute kidney injury): Start date: 04/11/21 Start time: 13:00 Status: Acute Assessment and plan: Due to dehydration will give IVF and avoid nehrotoxic medications. discussed with Dr. Sood (9) DVT prophylaxis: Start date: 04/11/21 Start time: 13:00 Status: Acute Assessment and plan: Heparin subcu (10) Discharge planning issues: Start date: 04/11/21 Start time: 13:00 Status: Acute Assessment and plan: Home when medically stable discussed with Dr. Sood Subjective Subjective Patient reports: other Interval history since last seen: Patient sitting up in chair, not vomiting, no complaints. Overnight imaging questionable for infectious process, started on ceftriaxone and doxy. Leukocytosis normalized today. Continue to monitor Exam Const General: cooperative, comfortable and no acute distress Nutritional Appearance: obese Orientation: alert, awake and oriented x3 Other: sleeping in chair, woke easily HENMT Head: normal to inspection, no palpable skull fracture, normocephalic and atraumatic Mouth: moist mucous membranes abnormal Eyes Eyelids: eyelids normal Pupils: PERRL Neck Neck: normal visual inspection and no JVD Lymphatic: no lymphadenopathy noted Resp Effort & Inspection: normal respiratory effort Auscultation: clear to auscultation bilaterally Cardio Jugular venous pressure: no JVD Rate: tachycardic Rhythm: regular rhythm Heart Sounds: S1 normal GI Auscultation: normal bowel sounds General: No CVA tenderness and deferred Skin General skin exam: no rashes or lesions noted Neuro General: patient alert, patient awake and patient oriented x3 Cognition: normal cognition Speech: speech normal Gait: normal gait Extrem General: normal to inspection, full ROM and no clubbing, cyanosis or edema Objective Last Vital Signs Temp 36 C L 04/11/21 19:49 Pulse 112 H 04/11/21 19:49 Resp 19 04/11/21 19:49 BP 166/98 H 04/11/21 19:49 Pulse Ox 98 04/11/21 19:49 Laboratory Results - last 24 hr 04/11/21 04/11/21 04/11/21 07:11 07:11 07:11 WBC 7.10 D RBC 4.33 Hgb 10.5 L Hct 34.6 L MCV 79.9 L MCH 24.2 L MCHC 30.3 L RDW 18.7 H Plt Count 262 MPV 12.2 H Immature Gran % 0.8 Neutrophils % 84.1 Lymphocytes % 10.4 Monocytes % 4.6 Eosinophils % 0.0 Basophils % 0.1 Nucleated RBC % 0 Absolute Neutrophils 5.97 Absolute Lymphocytes 0.74 L Absolute Monocytes 0.33 Absolute Eosinophils 0.00 Absolute Basophils 0.01 Sodium 148 H Potassium 3.0 L Chloride 107 Carbon Dioxide 22.1 Anion Gap 18.9 H BUN 6 L Creatinine 1.3 H Estimated GFR/1.73 m2 44.29 Glucose 95 Calcium 9.9 Magnesium 1.6 L
[2021-04-11] MEDS: Ondansetron 4 MG/2 ML VIAL IVP (20:59)
[2021-04-11] MEDS: Metoprolol 12.5 MG TAB PO (21:24)
[2021-04-11] MEDS: Heparin 5,000 UNITS/ML VIAL 5000 UNITS SC (21:24)
[2021-04-11] MEDS: cefTRIAXone 1 GM/50 ML BAG IVPB (21:24)
[2021-04-11 23:30] LABS: C Diff PCR Negative (Negative)
[2021-04-12] VITALS (9 sets, daily range): BP systolic 99–170; BP diastolic 61–102; PULSE 55–116; RESP 16–18; TEMP 36.2–38; O2SAT 92–98
[2021-04-12] MEDS: Trimethobenzamide 200 MG/2 ML VIAL IM (00:12)
[2021-04-12] MEDS: Normal Saline Flush 10 ML SYR IVP (02:54)
[2021-04-12] MEDS: Ondansetron 4 MG/2 ML VIAL IVP (02:54)
[2021-04-12] MEDS: tiZANidine 4 MG TABLET 6 MG PO ×3 (03:35→17:39)
[2021-04-12] MEDS: LORazepam 2 MG/ML VIAL 0.5 MG IVP (05:02)
[2021-04-12] MEDS: ACETAMINOPHEN 1,000 MG/100 ML BTL 400 MG IVPB (05:02)
[2021-04-12] MEDS: Heparin 5,000 UNITS/ML VIAL 5000 UNITS SC ×3 (05:03→21:01)
[2021-04-12] MEDS: Lactated Ringers 1,000 ML 75 ML IV ×2 (06:04→23:36)
[2021-04-12 07:56] LABS: Abs Immature Grans 0.04 10^3/uL (0.0-0.06); Absolute Basophil Count 0.01 10^3/uL (0.0-0.2); Absolute Lymphocyte Count 0.93 10^3/uL (1.2-3.4); Absolute Monocyte Count 0.36 10^3/uL (0.1-0.8); Absolute Neutrophil Count 5.34 10^3/uL (1.2-6.7); Basophils % 0.1; HGB 9.6 g/dL (11.2-15.7); Immature Grans % 0.6; Lymphocytes % 13.9; MCH 24.3 pg (27.0-33.0); MPV 12.8 fL (8.0-11.0); Monocytes % 5.4; Nucleated RBC 0 %; Platelet Count 236 10^3/uL (130-400); RBC 3.95 10^6/uL (3.93-5.22); RDW 19.2 % (11.7-14.6); RDW-SD 56.4 fL; WBC 6.68 10^3/uL (4.4-10.8)
[2021-04-12 08:15] LABS: Anion Gap 12.5 mmol/L (3-11); BUN 12 mg/dL (7-18); CO2 24.5 mmol/L (21.0-32.0); CREATININE 1.2 mg/dL (0.55-1.02); Calcium 9.3 mg/dL (8.5-10.1); Chloride 109 mmol/L (98-107); Estimated GFR 48.58 (mL/min/1.73m2); Glucose 100 mg/dL (74-106); Magnesium 2.6 mg/dL (1.8-2.4); Potassium 3.7 mmol/L (3.5-5.1); Sodium 146 mmol/L (136-145)
[2021-04-12] MEDS: Metoprolol 12.5 MG TAB PO ×2 (08:50→22:55)
[2021-04-12] MEDS: Ascorbic Acid 500 MG TAB PO ×2 (08:52→19:50)
[2021-04-12] MEDS: amLODIPine 5 MG TAB PO (08:52)
[2021-04-12] MEDS: DOXYCYCLINE 100 MG in Normal Saline 100 ML IVPB ×2 (08:52→19:50)
[2021-04-12] MEDS: Baclofen 10 MG TAB 20 MG PO ×4 (08:52→19:49)
[2021-04-12] MEDS: Methocarbamol 750 MG TAB PO ×3 (08:52→22:55)
[2021-04-12] MEDS: Folic Acid 1 MG TAB PO (08:52)
[2021-04-12] MEDS: Ferrous Sulfate 325 MG TAB PO ×2 (08:52→19:50)
--- NOTE | 2021-04-12 09:32 | W.PM.PROGNOT ---
Date of Service Date of service: 04/12/21 Time of Service: 09:32 Assessment and Plan Assessment and plan (1) Nausea, vomiting and diarrhea: Status: Resolved Assessment and plan: resolving, continue antiemetics as needed, advance diet as able, continue IV hydration (2) CAP (community acquired pneumonia): Status: Acute Assessment and plan: respiratory status stable. continue ceftriaxone/doxycycline day 2/5 Qualifiers: Laterality: unspecified laterality Qualified Code(s): J18.9 - Pneumonia, unspecified organism (3) Hypokalemia: Status: Acute Assessment and plan: repleted and follow (4) Ambulatory dysfunction: Status: Chronic Assessment and plan: PT consult multifactoral: cerebral palsy, scoliosis/kyphoscoliosis (5) DVT prophylaxis: Status: Acute Assessment and plan: heparin sc (6) Discharge planning issues: Status: Acute Assessment and plan: will discharge back to home when medically stable. She will follow up with her PCP outpatient. She will be transported via RCT w/c van. CM following. discussed with DR Hernandez. Subjective Subjective Patient reports: vomiting (overnight, resolved this morning, asking for advancing diet. ) Exam Const General: cooperative and no acute distress HENMT Head: normal to inspection Face and sinus: normal facial exam Neck Neck: normal visual inspection Chest Chest: normal inspection of the chest Resp Effort & Inspection: normal respiratory effort and able to speak in complete sentences Auscultation: clear to auscultation bilaterally Cardio Rhythm: regular rhythm GI Inspection: normal to inspection Palpation: soft Auscultation: normal bowel sounds Skin General skin exam: no rashes or lesions noted Neuro General: patient alert, patient awake and patient oriented x3 Cognition: normal cognition Speech: speech normal Motor: muscle tone normal throughout Sensory Exam: no sensory deficits noted Extrem General: full ROM, capillary refill normal, no calf tenderness bilaterally, no edema and other (b/l lower>upper extremities contracted 2/2 CP) Psych Appearance: grossly normal Mental Status: mental status grossly normal Speech and Movement: speech and movement normal Affect: normal affect Objective Last Vital Signs Temp 37.4 C 04/12/21 07:41 Pulse 68 04/12/21 07:41 Resp 16 04/12/21 07:41 BP 121/80 04/12/21 07:41 Pulse Ox 98 04/12/21 07:41 Laboratory Results - last 24 hr 0904/12/21 04/12/21 22:00 07:00 07:00 WBC 6.68 RBC 3.95 Hgb 9.6 L Hct 32.0 L MCV 81.0 MCH 24.3 L MCHC 30.0 L RDW 19.2 H Plt Count 236 MPV 12.8 H Immature Gran % 0.6 Neutrophils % 80.0 Lymphocytes % 13.9 Monocytes % 5.4 Eosinophils % 0.0 Basophils % 0.1 Nucleated RBC % 0 Absolute Neutrophils 5.34 Absolute Lymphocytes 0.93 L Absolute Monocytes 0.36 Absolute Eosinophils 0.00 Absolute Basophils 0.01 Sodium 146 H Potassium 3.7 D Chloride 109 H Carbon Dioxide 24.5 Anion Gap 12.5 H BUN 12 D Creatinine 1.2 H Estimated GFR/1.73 m2 48.58 Glucose 100 Calcium 9.3 Magnesium 2.6 H Stl C.difficile Tox PCR Negative
[2021-04-12] MEDS: Gabapentin 400 MG CAP PO ×3 (10:58→19:49)
[2021-04-12] MEDS: Gabapentin 300 MG CAP PO ×3 (10:58→19:50)
[2021-04-12] MEDS: Acetaminophen 325 MG TAB 650 MG PO ×3 (12:34→22:55)
--- NOTE | 2021-04-12 18:02 | PDOC.CMPRO ---
- If Service Date Differs Date of service: 04/12/21 Time of Service: 18:02 Care Management Progress Note S/O: Paige was sitting up in her chair when CM met with her. She was eating a popsicle, and CM noted that she has been advanced to clear liquids, which she was happy about. Paige discussed how things are going in the community, and she has had some major changes recently. She reported that she will only be at the [facility] for a few more days, and she will be staying with a friend for a few days after that, until she gets into her permanent housing, which is in [place]. She stated that she was unable to successfully change her [place] medicaid to [place] medicaid, and found housing in [place] in order to qualify for services in that state. CM will order RCT w/c van for Paige when she is ready for discharge. CM will continue to follow. A: Paige is a 45 year old female admitted to [facility] on 04/11/21 with vomiting and diarrhea, tachycardia and dehydration. P: Paige will return home, to her hotel room at the [facility], once she is medically cleared. She will follow up with her PCP and discharge plan of care. She will transport via RCT w/c van, coordinated by CM. CM will continue to follow.
[2021-04-12] MEDS: cefTRIAXone 1 GM/50 ML BAG IVPB (21:01)
[2021-04-13] MEDS: tiZANidine 4 MG TABLET 6 MG PO ×3 (02:24→23:37)
[2021-04-13 05:54] VITALS: BP 119/80; PULSE 60; RESP 18; TEMP 36.6; O2SAT 99
[2021-04-13] MEDS: Heparin 5,000 UNITS/ML VIAL 5000 UNITS SC ×3 (05:57→20:15)
[2021-04-13 07:29] LABS: Abs Immature Grans 0.01 10^3/uL (0.0-0.06); Absolute Basophil Count 0.02 10^3/uL (0.0-0.2); Absolute Eosinophil Count 0.04 10^3/uL (0.0-0.7); Absolute Lymphocyte Count 2.63 10^3/uL (1.2-3.4); Absolute Monocyte Count 0.54 10^3/uL (0.1-0.8); Basophils % 0.3; Eosinophils % 0.7; HCT 31.7 % (36.0-46.0); HGB 9.6 g/dL (11.2-15.7); Immature Grans % 0.2; Lymphocytes % 45.8; MCH 24.2 pg (27.0-33.0); MCHC 30.3 % (32.0-36.0); MCV 79.8 fL (80-95); MPV 12.2 fL (8.0-11.0); Monocytes % 9.4; Neutrophils % 43.6; Nucleated RBC 0 %; Platelet Count 218 10^3/uL (130-400); RBC 3.97 10^6/uL (3.93-5.22); RDW 18.7 % (11.7-14.6); RDW-SD 54.7 fL; WBC 5.74 10^3/uL (4.4-10.8)
[2021-04-13 07:41] LABS: Anion Gap 6.3 mmol/L (3-11); BUN 13 mg/dL (7-18); CO2 28.7 mmol/L (21.0-32.0); CREATININE 1.3 mg/dL (0.55-1.02); Chloride 100 mmol/L (98-107); Estimated GFR 44.29 (mL/min/1.73m2); Glucose 104 mg/dL (74-106); Potassium 3.9 mmol/L (3.5-5.1); Sodium 135 mmol/L (136-145)
[2021-04-13] MEDS: Gabapentin 300 MG CAP PO ×3 (09:11→20:16)
[2021-04-13] MEDS: Gabapentin 400 MG CAP PO ×3 (09:11→20:16)
[2021-04-13] MEDS: DOXYCYCLINE 100 MG in Normal Saline 100 ML IVPB ×2 (09:12→21:20)
[2021-04-13] MEDS: Metoprolol 12.5 MG TAB PO ×2 (09:12→20:16)
[2021-04-13] MEDS: Baclofen 10 MG TAB 20 MG PO ×4 (09:12→20:16)
[2021-04-13] MEDS: amLODIPine 5 MG TAB PO (09:12)
[2021-04-13 09:15] VITALS: BP 158/85; PULSE 74; RESP 16; TEMP 36.6; O2SAT 97
[2021-04-13] MEDS: Methocarbamol 750 MG TAB PO ×3 (09:33→20:33)
[2021-04-13 09:54] LABS: Bilirubin Negative (Negative); Blood Trace-intact (Negative); Clarity Clear (Clear); Glucose Negative (Negative); Ketones Negative (Negative); Leukocyte Esterase Negative (Negative); Nitrite Negative (Negative); Urobilinogen 0.2 EU/dL (Up TO 0.2)
[2021-04-13 10:02] LABS: Bacteria Rare HPF (Negative); C & S Indicated? C&S Done As Ordered; Casts Negative LPF (Negative); Crystals Negative HPF (Negative); Epithelial Cells Few HPF (Negative); Mucus Negative (Negative); Other Cells Rare Yeast (Negative); RBC 0-2 HPF (0-2); WBC 0-2 HPF (0-5)
[2021-04-13] MEDS: Normal Saline Flush 10 ML SYR IVP ×2 (13:01→20:33)
[2021-04-13] MEDS: Ondansetron 4 MG/2 ML VIAL IVP (13:01)
[2021-04-13] MEDS: Lactated Ringers 1,000 ML 75 ML IV (14:18)
[2021-04-13 15:43] VITALS: BP 102/68; PULSE 68; RESP 17; TEMP 37; O2SAT 95
--- NOTE | 2021-04-13 17:09 | CMPROGNOTE_ITS ---
- If Service Date Differs Date of service: 04/13/21 Time of Service: 17:09 Care Management Progress Note S/O: Paige was sitting up in her chair when CM met with her. She reported that she was feeling better, but felt that she may benefit from an additional day, as she had diarrhea for several hours, and was just able to eat again. She stated that she has a ride for tomorrow, if she is discharged. She will not be returning to the [facility], as her time has run out there. She reported that she will be going to a different hotel in [place] for now, but that she will be getting her own place soon. Ninoska Puente, called and stated that she has been working with her to secure housing, and CM transferred to call to Paige's room. CM will continue to follow. A: Paige is a 45 year old female admitted to [facility] on 04/11/21 with vomiting and diarrhea, tachycardia and dehydration. P: Paige will go to a new Hotel in [place] once she is medically cleared. She will follow up with her PCP and discharge plan of care. She will transport with a friend, which she coordinated herself. CM will continue to follow.
[2021-04-13] MEDS: cefTRIAXone 1 GM/50 ML BAG IVPB (20:14)
[2021-04-13] MEDS: Normal Saline 500 ML 100 ML IV (20:15)
[2021-04-13] MEDS: Ascorbic Acid 500 MG TAB PO (20:16)
[2021-04-13] MEDS: Ferrous Sulfate 325 MG TAB PO (20:16)
[2021-04-13 20:21] VITALS: BP 122/81
[2021-04-13] MEDS: Loperamide 2 MG CAP PO (22:24)
[2021-04-14 01:32] VITALS: BP 110/62; PULSE 41; RESP 18; TEMP 36.6; O2SAT 97
[2021-04-14 02:48] VITALS: PULSE 44; O2SAT 97
[2021-04-14 03:37] VITALS: BP 106/73; PULSE 49; RESP 17; TEMP 36.6; O2SAT 95
[2021-04-14] MEDS: Heparin 5,000 UNITS/ML VIAL 5000 UNITS SC ×3 (05:47→21:46)
[2021-04-14] MEDS: Lactated Ringers 1,000 ML 75 ML IV (06:40)
[2021-04-14 07:24] LABS: Abs Immature Grans 0.03 10^3/uL (0.0-0.06); Absolute Basophil Count 0.01 10^3/uL (0.0-0.2); Absolute Eosinophil Count 0.06 10^3/uL (0.0-0.7); Absolute Lymphocyte Count 2.69 10^3/uL (1.2-3.4); Absolute Monocyte Count 0.48 10^3/uL (0.1-0.8); Absolute Neutrophil Count 3.15 10^3/uL (1.2-6.7); Basophils % 0.2; Eosinophils % 0.9; HCT 30.8 % (36.0-46.0); HGB 9.5 g/dL (11.2-15.7); Immature Grans % 0.5; Lymphocytes % 41.9; MCH 24.6 pg (27.0-33.0); MCHC 30.8 % (32.0-36.0); MCV 79.8 fL (80-95); MPV 12.4 fL (8.0-11.0); Monocytes % 7.5; Nucleated RBC 0 %; Platelet Count 223 10^3/uL (130-400); RBC 3.86 10^6/uL (3.93-5.22); RDW 19.1 % (11.7-14.6); RDW-SD 55.1 fL; WBC 6.42 10^3/uL (4.4-10.8)
[2021-04-14 07:31] LABS: Anion Gap 7.2 mmol/L (3-11); BUN 15 mg/dL (7-18); CO2 28.8 mmol/L (21.0-32.0); CREATININE 1.1 mg/dL (0.55-1.02); Calcium 9.2 mg/dL (8.5-10.1); Chloride 104 mmol/L (98-107); Estimated GFR 53.71 (mL/min/1.73m2); Glucose 75 mg/dL (74-106); Potassium 3.6 mmol/L (3.5-5.1); Sodium 140 mmol/L (136-145)
[2021-04-14] MEDS: Ascorbic Acid 500 MG TAB PO ×2 (07:59→20:52)
[2021-04-14] MEDS: Methocarbamol 750 MG TAB PO ×3 (07:59→20:51)
[2021-04-14] MEDS: Gabapentin 400 MG CAP PO ×3 (07:59→20:53)
[2021-04-14] MEDS: amLODIPine 5 MG TAB PO (07:59)
[2021-04-14] MEDS: Acetaminophen 325 MG TAB 650 MG PO ×2 (07:59→16:01)
[2021-04-14] MEDS: Gabapentin 300 MG CAP PO ×3 (07:59→20:51)
[2021-04-14] MEDS: Ferrous Sulfate 325 MG TAB PO ×2 (07:59→21:47)
[2021-04-14] MEDS: Baclofen 10 MG TAB 20 MG PO ×4 (07:59→20:51)
[2021-04-14] MEDS: DOXYCYCLINE 100 MG in Normal Saline 100 ML IVPB (08:00)
[2021-04-14] MEDS: Folic Acid 1 MG TAB PO (08:00)
[2021-04-14] MEDS: Metoprolol 12.5 MG TAB PO ×2 (08:00→20:50)
[2021-04-14 08:07] VITALS: BP 132/94; PULSE 88; RESP 18; TEMP 36.8; O2SAT 96
[2021-04-14] MEDS: Loperamide 2 MG CAP PO ×2 (08:43→20:49)
[2021-04-14] MEDS: tiZANidine 4 MG TABLET 6 MG PO ×2 (10:46→17:47)
[2021-04-14] MEDS: Cholestyramine/Aspartame PKT 1 EACH PO ×2 (12:50→17:49)
--- NOTE | 2021-04-14 14:16 | W.PM.PROGNOT ---
Date of Service Date of service: 04/14/21 Time of Service: 14:16 Assessment and Plan Assessment and plan (1) Nausea, vomiting and diarrhea: Status: Resolved Assessment and plan: resolving, continue antiemetics as needed, advance diet as able, continue IV hydration add questran skin care to anus, excoriated from diarrhea. (2) CAP (community acquired pneumonia): Status: Acute Assessment and plan: respiratory status stable. continue ceftriaxone/doxycycline day 2/5 Qualifiers: Laterality: unspecified laterality Qualified Code(s): J18.9 - Pneumonia, unspecified organism (3) Hypokalemia: Status: Acute Assessment and plan: repleted and follow (4) Ambulatory dysfunction: Status: Chronic Assessment and plan: PT consult multifactoral: cerebral palsy, scoliosis/kyphoscoliosis (5) DVT prophylaxis: Status: Acute Assessment and plan: heparin sc (6) Discharge planning issues: Status: Acute Assessment and plan: will discharge back to home when medically stable. She will follow up with her PCP outpatient. She will be transported via [facility] w/c van. CM following. discussed with DR Hollins Subjective Subjective Patient reports: tolerating liquids well, tolerating a regular diet, diarrhea and afebrile Exam Const General: cooperative and no acute distress HENMT Head: normal to inspection Face and sinus: normal facial exam Neck Neck: normal visual inspection Chest Chest: normal inspection of the chest Resp Effort & Inspection: normal respiratory effort and able to speak in complete sentences Auscultation: clear to auscultation bilaterally Cardio Rhythm: regular rhythm GI Inspection: normal to inspection Palpation: soft Auscultation: normal bowel sounds Skin General skin exam: no rashes or lesions noted Neuro General: patient alert, patient awake and patient oriented x3 Cognition: normal cognition Speech: speech normal Motor: muscle tone normal throughout Sensory Exam: no sensory deficits noted Extrem General: full ROM, capillary refill normal, no calf tenderness bilaterally, no edema and other (b/l lower>upper extremities contracted 2/2 CP) Psych Appearance: grossly normal Mental Status: mental status grossly normal Speech and Movement: speech and movement normal Affect: normal affect Objective Last Vital Signs Temp 36.8 C 04/14/21 08:07 Pulse 88 04/14/21 08:07 Resp 18 04/14/21 08:07 BP 132/94 H 04/14/21 08:07 Pulse Ox 96 04/14/21 08:07 Laboratory Results - last 24 hr 04/14/21 04/14/21 06:43 06:43 WBC 6.42 RBC 3.86 L Hgb 9.5 L Hct 30.8 L MCV 79.8 L MCH 24.6 L MCHC 30.8 L RDW 19.1 H Plt Count 223 MPV 12.4 H Immature Gran % 0.5 Neutrophils % 49.0 Lymphocytes % 41.9 Monocytes % 7.5 Eosinophils % 0.9 Basophils % 0.2 Nucleated RBC % 0 Absolute Neutrophils 3.15 Absolute Lymphocytes 2.69 Absolute Monocytes 0.48 Absolute Eosinophils 0.06 Absolute Basophils 0.01 Sodium 140 Potassium 3.6 Chloride 104 Carbon Dioxide 28.8 Anion Gap 7.2 BUN 15 Creatinine 1.1 H Estimated GFR/1.73 m2 53.71 Glucose 75 Calcium 9.2
--- NOTE | 2021-04-14 17:25 | PDOC.CMPRO ---
Care Management Progress Note S/O: Paige was sitting up in her chair when CM met with her. She reported anticipating she would discharge today or tomorrow. She was connected to Marjorie at [facility] to secure housing. CM will continue to follow. A: Paige is a 45 year old female admitted to [facility] on 04/11/21 with vomiting and diarrhea, tachycardia and dehydration. P: Paige will go to a new Hotel in [place] once she is medically cleared. She will follow up with her PCP and discharge plan of care. She will transport with a friend, which she coordinated herself. CM will continue to follow.
[2021-04-14 20:21] VITALS: BP 129/73; PULSE 70; RESP 20; TEMP 36.7; O2SAT 96
[2021-04-14] MEDS: Normal Saline Flush 10 ML SYR IVP (20:48)
[2021-04-14] MEDS: cefTRIAXone 1 GM/50 ML BAG IVPB (20:48)
[2021-04-14] MEDS: Normal Saline 500 ML 50 ML IV (20:49)
[2021-04-14] MEDS: Doxycycline Hyclate 100 MG CAP PO (20:50)
[2021-04-14 23:47] VITALS: BP 111/74; PULSE 60; RESP 16; TEMP 35.9; O2SAT 97
[2021-04-15] MEDS: Lactated Ringers 1,000 ML 75 ML IV ×2 (00:09→14:29)
[2021-04-15] MEDS: tiZANidine 4 MG TABLET 6 MG PO ×2 (02:07→11:04)
[2021-04-15] MEDS: Heparin 5,000 UNITS/ML VIAL 5000 UNITS SC ×2 (05:49→14:16)
[2021-04-15] MEDS: Ascorbic Acid 500 MG TAB PO (07:57)
[2021-04-15] MEDS: Doxycycline Hyclate 100 MG CAP PO (07:58)
[2021-04-15] MEDS: Methocarbamol 750 MG TAB PO ×2 (07:58→14:15)
[2021-04-15] MEDS: Baclofen 10 MG TAB 20 MG PO ×2 (07:58→12:24)
[2021-04-15] MEDS: Folic Acid 1 MG TAB PO (07:58)
[2021-04-15] MEDS: amLODIPine 5 MG TAB PO (07:58)
[2021-04-15] MEDS: Gabapentin 300 MG CAP PO ×2 (07:58→14:16)
[2021-04-15] MEDS: Gabapentin 400 MG CAP PO ×2 (07:58→14:16)
[2021-04-15] MEDS: Metoprolol 12.5 MG TAB PO (07:58)
[2021-04-15 08:02] LABS: Abs Immature Grans 0.02 10^3/uL (0.0-0.06); Absolute Basophil Count 0.02 10^3/uL (0.0-0.2); Absolute Eosinophil Count 0.12 10^3/uL (0.0-0.7); Absolute Lymphocyte Count 2.98 10^3/uL (1.2-3.4); Absolute Monocyte Count 0.55 10^3/uL (0.1-0.8); Absolute Neutrophil Count 2.28 10^3/uL (1.2-6.7); Basophils % 0.3; HCT 31.9 % (36.0-46.0); HGB 9.8 g/dL (11.2-15.7); Immature Grans % 0.3; Lymphocytes % 49.9; MCH 24.5 pg (27.0-33.0); MCHC 30.7 % (32.0-36.0); MCV 79.8 fL (80-95); Monocytes % 9.2; Neutrophils % 38.3; Nucleated RBC 0 %; Platelet Count 228 10^3/uL (130-400); RDW 19.6 % (11.7-14.6); RDW-SD 56.1 fL; WBC 5.97 10^3/uL (4.4-10.8)
[2021-04-15 08:11] VITALS: BP 92/64; PULSE 88; RESP 16; TEMP 37; O2SAT 96
[2021-04-15 08:28] LABS: Diff Comment Diff Reviewed; RBC Morphology Normal
[2021-04-15 08:29] LABS: Anion Gap 8.4 mmol/L (3-11); BUN 17 mg/dL (7-18); CO2 27.6 mmol/L (21.0-32.0); Calcium 9.1 mg/dL (8.5-10.1); Chloride 107 mmol/L (98-107); Estimated GFR 59.96 (mL/min/1.73m2); Glucose 67 mg/dL (74-106); Potassium 3.9 mmol/L (3.5-5.1); Sodium 143 mmol/L (136-145)
[2021-04-15] MEDS: Cholestyramine/Aspartame PKT 1 EACH PO (09:58)
[2021-04-15] MEDS: Loperamide 2 MG CAP PO (09:58)
[2021-04-15] MEDS: Ferrous Sulfate 325 MG TAB PO (09:59)
--- NOTE | 2021-04-15 12:31 | DSE_ITS ---
Date of service: 04/15/21 Time of Service: 11:15 DS: Diagnosis Discharge Diagnosis (1) Nausea, vomiting and diarrhea: Start date: 04/15/21 Start time: 12:36 Status: Resolved Asessment and Plan: nausea has subsided with vomiting. Diarrhea is chronic. She would be best following up with GI as an outpatient for further workup for diarrhea. She will have this done in [place] as she will be returning back there from discharge. (2) CAP (community acquired pneumonia): Start date: 04/15/21 Start time: 12:45 Status: Acute Asessment and Plan: resp status stable she completed a course of doxy ang ceftriaxone for CAP found at the bases of lungs by CT imaging. (3) Hypokalemia: Start date: 04/15/21 Start time: 12:47 Status: Resolved Asessment and Plan: replete with po supplementation (4) Ambulatory dysfunction: Start date: 04/15/21 Start time: 12:48 Status: Chronic Asessment and Plan: Improve after feeling better. worked with PT raymond here and able to now abulate around room (5) DVT prophylaxis: Status: Acute (6) Discharge planning issues: Status: Acute Discharge Plan Disposition Condition: Good Discharge Details Reason For Visit: Vomiting and diarrhea, Tachycardia, Dehydration Admit Date/Time: 04/11/21 20:25 Admit Provider: Danilo Sood Attending Provider: Danilo Sood Primary Care Provider: Unknown,Unknown Hospital Course Hospital Course: 45 y.o female with PMH of HTN, anxiety, heart failure with preserved ejection fraction, osteoarthritis, polycystic ovaries, scoliosis presented for vomiting and diarrhea 24 hours onset to admission. She stated she had been vomiting multiple times which was mainly bile and spit up. Labs in the ED revealed leukocytosis of 15 with ANC of 14, YOGESH 1.4, otherwise unremarkable, imaging with no acute findings. She was asked to be admitted to hospitalist for further management. she was placed on IVF hydration and given antiemetics. See diagnosis for treatment. She is feeling better. She is able to ambulate. No longer nauseated or vomiting. She does have diarrhea however this is a chronic problem and she will need to follow up with [facility] for further work up. Will refer to them for further work up. She is moving back to [place] after discharge, today. She feels great and is ready to go home. She is being discharged, she need follow up scan in couple weeks to r/o pneumonia. She denies CP, SOB, N/V/D. Home Meds and New Rx's Prescriptions: New loperamide 2 mg Capsule 2 - 4 mg PO QID PRN PRNQty: 30 RF: 0 ascorbic acid (vitamin C) [Vitamin C] 500 mg Tablet 500 mg PO BID Qty: 60 RF: 0 metoprolol tartrate 25 mg Tablet 12.5 mg PO BID Qty: 60 RF: 0 prochlorperazine maleate [Compazine] 10 mg tablet 10 mg PO Q8H PRNQty: 20 RF: 0 Continued tizanidine 4 mg tablet 6 mg PO Q6H PRN PRNRF: 0 baclofen 20 mg Tablet 20 mg PO QID RF: 0 gabapentin 300 mg Capsule 300 mg PO TID RF: 0 gabapentin 400 mg Tablet 400 mg PO TID RF: 0 methocarbamol 750 mg Tablet 750 mg PO QID PRNRF: 0 citalopram 20 mg Tablet 20 mg PO DAILY RF: 0 ondansetron HCl [Zofran] 4 mg Tablet 4 mg PO Q8H PRN PRN (Reason: Nausea) RF: 0 ferrous sulfate 325 mg (65 mg iron) Tablet 325 mg PO BID Qty: 60 RF: 0 folic acid 1 mg Tablet 1 mg PO DAILY Qty: 30 RF: 0 Bio-K plus 50 billion cell capsule,delayed release(DR/EC) 1 cap PO DAILY Qty: 30 RF: 0 amlodipine 5 mg Tablet 5 mg PO DAILY Qty: 30 RF: 0 Discharge Instructions Instructions: Dehydration (DC), Chronic Diarrhea (GEN), Community Acquired Pneumonia (DC) Additional Instructions: Follow up with PCP in [place] Follow up with [facility], they will call you with time and date for GI appt Take compazine as needed for nausea and take imodium as needed for diarrhea Activity:: Activity as Tolerated Equipment/Supplies:: No Equipment Needed Diet:: As Tolerated DS: Summary Time Spent with Patient providing and/or coordinating discharge services: Greater than 30 minutes Status at Discharge Functional status at discharge: independent ambulation Overall status at discharge: patient is back to baseline Mental Status: mental status grossly normal Speech and Movement: speech and movement normal Mood: congruent mood Affect: normal affect Exam Const General: cooperative, comfortable and no acute distress Nutritional Appearance: obese Orientation: alert, awake and oriented x3 HENMT Head: normal to inspection, no palpable skull fracture, normocephalic and atraumatic Mouth: moist mucous membranes abnormal Eyes Eyelids: eyelids normal Pupils: PERRL Neck Neck: normal visual inspection and no JVD Lymphatic: no lymphadenopathy noted Resp Effort & Inspection: normal respiratory effort Auscultation: clear to auscultation bilaterally Cardio Jugular venous pressure: no JVD Rate: tachycardic Rhythm: regular rhythm Heart Sounds: S1 normal GI Auscultation: normal bowel sounds General: No CVA tenderness and deferred Skin General skin exam: no rashes or lesions noted Neuro General: patient alert, patient awake and patient oriented x3 Cognition: normal cognition Speech: speech normal Gait: normal gait Extrem General: normal to inspection, full ROM and no clubbing, cyanosis or edema Psych Mental Status: mental status grossly normal Speech and Movement: speech and movement normal Mood: congruent mood Affect: normal affect DS: Data Vitals/I&O Vitals and I&O: Vital Signs Temperature 37.0 C 04/15/21 08:11 Temperature Source Tympanic 04/15/21 08:11 Pulse 88 04/15/21 08:11 Pulse Rhythm Regular 04/15/21 02:05 Pulse 127 H 04/10/21 15:01 Respiratory Rate 16 04/15/21 08:11 Respiratory Effort Non-Labored 04/15/21 02:05 Respiratory Depth Normal 04/15/21 02:05 Respiratory Pattern Normal 04/15/21 02:05 Blood Pressure 92/64 L 04/15/21 08:11 Blood Pressure Mean 110 04/10/21 15:00 Blood Pressure Position Sitting 04/10/21 09:25 Pulse Oximetry 96 04/15/21 08:11 Oxygen Delivery Method Room Air 04/15/21 08:11 Oxygen Flow Rate 0 04/15/21 08:11 Pain Level 0 04/15/21 08:11 Comment 04/14/21 15:00 Intake & Output 04/14/21 04/15/21 04/15/21 23:59 11:59 23:59 Intake Total 2268.333 / 3312.083 240 / 240 Output Total 4250 / 5750 3350 / 3350 Balance -1981.667 / -2437.917 -3110 / -3110 Intake: IV 998.333 / 1802.083 Oral 1270 / 1510 240 / 240 Output: Urine 4250 / 5750 3350 / 3350 Other: Urine Color Yellow Bright Red Urine Appearance Clear Sediment Urine Odor Normal Comment urine was mixed with menstrual blood Stool Size Moderate Stool Characteristics Liquid Brown Voiding Methods Bedside Commode Bedside Commode Data Completed and Pending Completed studies during hospitalization [Text1]: : 1975 Age: 45 Exam(s) XR PORTABLE CHEST AP EXAM: XR PORTABLE CHEST AP CLINICAL HISTORY: Tachycardia, hypoxia, rule out acute disease TECHNIQUE: COMPARISON: CR,XR XR CHEST 2V PA LATERAL from 02/24/2021 FINDINGS: Prior spinal surgery noted. Heart is not enlarged. Lungs are grossly clear and well expanded. IMPRESSION: No evidence of acute process. Exam(s) PROCEDURE INFORMATION: Exam: XR Chest Exam date and time: 04/10/2021 11:06 AM Age: 45 years old Clinical indication: Other: Tachycardia, hypoxia, rule out acute disease, history of recent aspiration pneumonia; Additional info: Tachycardia, hypoxia, rule out acute disease, history of recent aspiration pneumonia TECHNIQUE: Imaging protocol: XR of the chest. Views: 1 view. COMPARISON: CR XR CHEST 2V PA LATERAL 02/24/2021 4:33 PM FINDINGS: Patient rotation limits evaluation. Lungs: There is no consolidation. Pleural spaces: No pneumothorax. No sizable pleural effusion. Heart/Mediastinum: Cardiomediastinal silhouette similar/stable to prior. Bones/joints: Deformity of the left 6 rib redemonstrated and similar. No acute displaced fracture. Other findings: Surgical changes project over the chest. IMPRESSION: No acute cardiopulmonary findings. Dictated and Authenticated by: Azam Peguero MD. Exam(s) XR ABDOMEN FLAT UPRIGHT EXAM: XR ABDOMEN FLAT UPRIGHT CLINICAL HISTORY: Vomiting. TECHNIQUE: 2D digital imaging was performed. COMPARISON: CR XR ABDOMEN FLAT UPRIGHT from 02/25/2021 FINDINGS: Multilevel spinal fusion. Also fixation hardware in the left humerus. No obvious bowel obstruction or free air. Bowel gas pattern is nonspecific. Right hip dysplasia with shallow acetabulum and absence of the right femoral head and neck. Left hip unremarkable. No acute fractures evident. Sacroiliac joints unremarkable. IMPRESSION: Nonspecific bowel gas pattern. Spinal fusion. Other osseous findings as above. Exam(s) PROCEDURE INFORMATION: Exam: XR Abdomen Exam date and time: 04/11/2021 2:20 AM Age: 45 years old Clinical indication: Nausea and vomiting; Prior surgery; Surgery date: 6+ months; Surgery type: Back, gallbladder TECHNIQUE: Imaging protocol: XR of the abdomen. Views: 2 Views. Upright and supine views. COMPARISON: CR XR ABDOMEN FLAT UPRIGHT 02/25/2021 2:23 PM FINDINGS: Lungs: The bases of the lungs show coarse interstitial alveolar densities. Inflammatory or infectious process is not excluded. Gastrointestinal tract: There is a nonspecific bowel gas pattern. No evidence of bowel obstruction. Intraperitoneal space: There is no free intraperitoneal air. Organs: Surgical clips right upper quadrant consistent with cholecystectomy. The organs are unremarkable. Bones/joints: Spinal fusion changes present within the thoracolumbar spine and scoliosis convex to left. Right hip dysplasia changes with right hip subluxation and absence of the femoral head. Irregularity of the right 11th rib. The spine, sacroiliac joints, and hip joints show no evidence of fracture or other acute processes. Surgical plate overlying the left upper extremity. Soft tissues: There are no soft tissue masses or calcifications. IMPRESSION: 1. No acute abdominal process identfied. 2. The bases of the lungs show coarse interstitial alveolar densities. Inflammatory or infectious process is not excluded. Labs on day of discharge: Labs from last 24 hours 04/15/21 04/15/21 07:10 07:10 WBC 5.97 RBC 4.00 Hgb 9.8 L Hct 31.9 L MCV 79.8 L MCH 24.5 L MCHC 30.7 L RDW 19.6 H Plt Count 228 MPV Immature Gran % 0.3 Neutrophils % 38.3 Lymphocytes % 49.9 Monocytes % 9.2 Eosinophils % 2.0 Basophils % 0.3 Nucleated RBC % 0 Absolute Neutrophils 2.28 Absolute Lymphocytes 2.98 Absolute Monocytes 0.55 Absolute Eosinophils 0.12 Absolute Basophils 0.02 RBC Morphology Normal Sodium 143 Potassium 3.9 Chloride 107 Carbon Dioxide 27.6 Anion Gap 8.4 BUN 17 Creatinine 1.0 Estimated GFR/1.73 m2 59.96 Glucose 67 L Calcium 9.1 Preliminary micro results at discharge 04/13/21 08:40 Blood Culture - Preliminary Blood NO GROWTH 48 HOURS 04/13/21 08:40 Blood Culture - Preliminary Blood NO GROWTH 48 HOURS [facility] Medical History Anxiety disorder Cerebral palsy Chronic anemia Heart failure with preserved ejection fraction Hyperkalemia Osteoarthritis of right hip joint due to dysplasia Polycystic ovaries Rhabdomyolysis Scoliosis (and kyphoscoliosis), idiopathic Toxic metabolic encephalopathy (~11/26/20) Surgical History S/P spinal fusion Status post Girdlestone procedure Social History Smoking/Tobacco Use Status: Never Smoking risk assessment performed?: Yes Alcohol Intake: never Drug use: Never Substance use type: does not use Do you feel safe at home: Yes Do you feel safe in your relationship?: Yes
--- NOTE | 2021-04-15 14:18 | W.PM.DS.N ---
Date of service: 04/15/21 Time of Service: 14:18 DS: Diagnosis Discharge Diagnosis (1) Nausea, vomiting and diarrhea: Status: Resolved (2) CAP (community acquired pneumonia): Status: Acute (3) Hypokalemia: Status: Resolved (4) Ambulatory dysfunction: Status: Chronic (5) DVT prophylaxis: Status: Acute (6) Discharge planning issues: Status: Acute Discharge Plan Disposition Condition: Good Discharge Details Reason For Visit: Vomiting and diarrhea, Tachycardia, Dehydration Admit Date/Time: 04/11/21 20:25 Admit Provider: Danilo Sood Attending Provider: Danilo Sood Primary Care Provider: Unknown,Unknown Hospital Course Hospital Course: 45 y.o female with PMH of HTN, anxiety, heart failure with preserved ejection fraction, osteoarthritis, polycystic ovaries, scoliosis presented for vomiting and diarrhea 24 hours onset to admission. She stated she had been vomiting multiple times which was mainly bile and spit up. Labs in the ED revealed leukocytosis of 15 with ANC of 14, YOGESH 1.4, otherwise unremarkable, imaging with no acute findings. She was asked to be admitted to hospitalist for further management. she was placed on IVF hydration and given antiemetics. See diagnosis for treatment. She is feeling better. She is able to ambulate. No longer nauseated or vomiting. She does have diarrhea however this is a chronic problem and she will need to follow up with [facility] [place] further work up. Will refer to them for further work up. She is moving back to [place] after discharge, today. She feels great and is ready to go home. She is being discharged, she need follow up scan in couple weeks to r/o pneumonia. She denies CP, SOB, N/V/D. Home Meds and New Rx's Prescriptions: New loperamide 2 mg Capsule 2 - 4 mg PO QID PRN PRNQty: 30 RF: 0 ascorbic acid (vitamin C) [Vitamin C] 500 mg Tablet 500 mg PO BID Qty: 60 RF: 0 metoprolol tartrate 25 mg Tablet 12.5 mg PO BID Qty: 60 RF: 0 prochlorperazine maleate [Compazine] 10 mg tablet 10 mg PO Q8H PRNQty: 20 RF: 0 Continued tizanidine 4 mg tablet 6 mg PO Q6H PRN PRNRF: 0 baclofen 20 mg Tablet 20 mg PO QID RF: 0 gabapentin 300 mg Capsule 300 mg PO TID RF: 0 gabapentin 400 mg Tablet 400 mg PO TID RF: 0 methocarbamol 750 mg Tablet 750 mg PO QID PRNRF: 0 citalopram 20 mg Tablet 20 mg PO DAILY RF: 0 ondansetron HCl [Zofran] 4 mg Tablet 4 mg PO Q8H PRN PRN (Reason: Nausea) RF: 0 ferrous sulfate 325 mg (65 mg iron) Tablet 325 mg PO BID Qty: 60 RF: 0 folic acid 1 mg Tablet 1 mg PO DAILY Qty: 30 RF: 0 Bio-K plus 50 billion cell capsule,delayed release(DR/EC) 1 cap PO DAILY Qty: 30 RF: 0 amlodipine 5 mg Tablet 5 mg PO DAILY Qty: 30 RF: 0 Discharge Instructions Instructions: Dehydration (DC), Chronic Diarrhea (GEN), Community Acquired Pneumonia (DC) Additional Instructions: Follow up with PCP in [place] Follow up with [facility], they will call you with time and date for GI appt Take compazine as needed for nausea and take imodium as needed for diarrhea Activity:: Activity as Tolerated Equipment/Supplies:: No Equipment Needed Diet:: As Tolerated DS: Data Vitals/I&O Vitals and I&O: Vital Signs Temperature 37.0 C 04/15/21 08:11 Temperature Source Tympanic 04/15/21 08:11 Pulse 88 04/15/21 08:11 Pulse Rhythm Regular 04/15/21 02:05 Pulse 127 H 04/10/21 15:01 Respiratory Rate 16 04/15/21 08:11 Respiratory Effort Non-Labored 04/15/21 02:05 Respiratory Depth Normal 04/15/21 02:05 Respiratory Pattern Normal 04/15/21 02:05 Blood Pressure 92/64 L 04/15/21 08:11 Blood Pressure Mean 110 04/10/21 15:00 Blood Pressure Position Sitting 04/10/21 09:25 Pulse Oximetry 96 04/15/21 08:11 Oxygen Delivery Method Room Air 04/15/21 08:11 Oxygen Flow Rate 0 04/15/21 08:11 Pain Level 0 04/15/21 08:11 Comment 04/14/21 15:00 Intake & Output 04/14/21 04/15/21 04/15/21 23:59 11:59 23:59 Intake Total 6908.333 / 3312.083 240 / 240 Output Total 4250 / 5750 3350 / 3350 Balance -1981.667 / -2437.917 -3110 / -3110 Intake: IV 998.333 / 1802.083 Oral 1270 / 1510 240 / 240 Output: Urine 4250 / 5750 3350 / 3350 Other: Urine Color Yellow Bright Red Urine Appearance Clear Sediment Urine Odor Normal Comment urine was mixed with menstrual blood Stool Size Moderate Stool Characteristics Liquid Brown Voiding Methods Bedside Commode Bedside Commode Data Completed and Pending Labs on day of discharge: Labs from last 24 hours 04/15/21 04/15/21 07:10 07:10 WBC 5.97 RBC 4.00 Hgb 9.8 L Hct 31.9 L MCV 79.8 L MCH 24.5 L MCHC 30.7 L RDW 19.6 H Plt Count 228 MPV Immature Gran % 0.3 Neutrophils % 38.3 Lymphocytes % 49.9 Monocytes % 9.2 Eosinophils % 2.0 Basophils % 0.3 Nucleated RBC % 0 Absolute Neutrophils 2.28 Absolute Lymphocytes 2.98 Absolute Monocytes 0.55 Absolute Eosinophils 0.12 Absolute Basophils 0.02 RBC Morphology Normal Sodium 143 Potassium 3.9 Chloride 107 Carbon Dioxide 27.6 Anion Gap 8.4 BUN 17 Creatinine 1.0 Estimated GFR/1.73 m2 59.96 Glucose 67 L Calcium 9.1 Preliminary micro results at discharge 04/13/21 08:40 Blood Culture - Preliminary Blood NO GROWTH 48 HOURS 04/13/21 08:40 Blood Culture - Preliminary Blood NO GROWTH 48 HOURS [facility] Medical History Anxiety disorder Cerebral palsy Chronic anemia Heart failure with preserved ejection fraction Hyperkalemia Osteoarthritis of right hip joint due to dysplasia Polycystic ovaries Rhabdomyolysis Scoliosis (and kyphoscoliosis), idiopathic Toxic metabolic encephalopathy (~11/26/20) Surgical History S/P spinal fusion Status post Girdlestone procedure Social History Smoking/Tobacco Use Status: Never Smoking risk assessment performed?: Yes Alcohol Intake: never Drug use: Never Substance use type: does not use Do you feel safe at home: Yes Do you feel safe in your relationship?: Yes
--- NOTE | 2021-04-15 18:07 | PDOC.CMDIS ---
LACE Index Scoring Tool - Questions: Length of Stay (in days): 4 - 6 Acuity (Admit via E.D.?): Yes E.D. Visits: 3 - Answers: Total Score: 10 Risk of Readmission: High Risk Care Management Discharge Reason for Hospitalization: vomiting and diarrhea, tachycardia, dehydration Discharge Plan: Paige will go to a new Hotel in [place] once she is medically cleared. She will follow up with her PCP and discharge plan of care. She will transport with a friend, which she coordinated herself. Patient/Family Education Needs: Review discharge instructions, discuss Ask Me Three.
== END 2021-04-15 16:26 | disposition home or self-care (01) | DRG 682 ==
LOC: ER 13:25 → MS 04-11 10:21 → ER 04-12 10:48 → MS 04-12 10:48
PROVIDERS: Internal Medicine; Nurse Practitioner Acute Care; Nurse Practitioner Family; Admitting Provider Internal Medicine; Emergency Provider Physician Assistant; Visit Provider Internal Medicine
DX: N17.9 Acute kidney failure, unspecified (principal); J18.9 Pneumonia, unspecified organism; I50.30 Unspecified diastolic (congestive) heart failure; K52.9 Noninfective gastroenteritis and colitis, unspecified; R11.2 Nausea with vomiting, unspecified; D72.825 Bandemia; R00.0 Tachycardia, unspecified; E86.0 Dehydration; F41.9 Anxiety disorder, unspecified; I11.0 Hypertensive heart disease with heart failure; E28.2 Polycystic ovarian syndrome; M41.9 Scoliosis, unspecified; D64.9 Anemia, unspecified; G80.9 Cerebral palsy, unspecified; Z98.1 Arthrodesis status; Z20.822 Contact with and (suspected) exposure to COVID-19; E83.42 Hypomagnesemia; E87.6 Hypokalemia
CPT/HCPCS: 36415; 80048; 80053; 83690; 87040; 87493; 87635; 96361; 96365; 96366; 96375; 96376; 99285; 71045; 74019; 81003; 81015; 83735; 85025; 87086; 99223; 99225; 99233; 99239; G0378; J0131; J0696; J0780; J1644; J2060; J2405; J2765; J3360; J3475; J3490